=== PATIENT | female | born 1940 | race Caucasian/White ===

== ENCOUNTER → 2019-08-30 08:41 | Outpatient (CLI) | payer MEDICARE, SELFPAY ==
--- NOTE | ~2019-08-30 | CT_ITS ---
EXAMINATION: CT chest abdomen pelvis w con, CT soft tissue neck w con DATE: 08/30/2019 09:23 INDICATION: Restaging grade 2 follicular lymphoma TECHNIQUE: Computed tomography (CT) of the neck, chest, abdomen, and pelvis was performed without int ravenous contrast. The dose-length product was 1171.21 mGy-cm for the CT of the chest, abdomen and pe lvis and 353.40 mGy-cm for the CT of the neck. COMPARISON: 03/24/2019 and 05/14/2018 FINDINGS: NECK CT: 2.6 cm cystic mass in the right thyroid lobe with benign pathology results are fine-needle aspiration on 05/06/2016. Submandibular and parotid glands are normal and symmetric. There are scattered normal -sized lymph nodes in the neck, no lymphadenopathy. No masses identified. The vasculature is patenta nd normal in caliber. Intracranial calcified cerebral atherosclerosis is noted at the carotid siphons . Airway is unremarkable. Orbits, paranasal sinuses and mastoid air cells are normal. Visualized por tions of the brain are normal. Moderate cervical spondylosis with anterior and posterior spinal fusio n at C5-C7. CHEST CT: Unchanged scarring at the bilateral apices. 5 mm nodules in the left upper and lower lobes which are unchanged since 05/14/2018. Pneumatocele in the right lower lobe. Minimal dependent atelectasis in th e bilateral lower lobes. No pneumonia, pulmonary edema or pleural effusion. Heart size is normal. Ath erosclerotic coronary artery calcifications. No pericardial effusion. Calcified left hilar lymph node s consistent with old granulomatous disease. No pathologically enlarged thoracic lymphadenopathy. Mod erate thoracic spondylosis. ABDOMEN/PELVIS CT: Liver, gallbladder, pancreas, bilateral adrenal glands and right kidney are normal. Mild cortical sca rring at the upper pole of the left kidney. A few calcifications consistent with old granulomatous di sease within the normal sized spleen. There is moderate colonic diverticulosis with a sigmoid predomi nance. There is no adjacent inflammatory change to suggest diverticulitis. Normal appendix. No bowel obstruction. The uterus is not identified and has likely been surgically resected. Bladder and bilat eral adnexa are unremarkable. No free intraperitoneal gas or fluid. No pathologically enlarged abdomi nal or pelvic lymphadenopathy. Moderate lumbar spondylosis. Suture anchors bilaterally at the parasym physeal pubis IMPRESSION: 1. No evidence of lymphoma. Reviewed, dictated and finalized at location A. IMPRESSION: 1. No evidence of lymphoma. IMPRESSION: 1. No evidence of lymphoma.
[2019-08-30 09:04] LABS: Estimated Glomerular Filt Rate > 60
== END ==
PROVIDERS: Visit Provider Internal Medicine Medical Oncology
DX: C82.18 Follicular lymphoma grade II, lymph nodes of multiple sites (principal)
CPT/HCPCS: 36415; 70491; 71260; 74177; Q9967

== ENCOUNTER 2019-11-29 08:37 | Outpatient (CLI) | payer MEDICARE, SELFPAY ==
--- NOTE | ~2019-11-29 | CT_ITS ---
EXAMINATION: CT soft tiss nk chst ab pel w EXAM DATE: 11/29/2019 09:35 INDICATION: Follicular lymphoma, multiple sites. TECHNIQUE: Spiral CT of the neck, chest, abdomen and pelvis was performed following intravenous injec tion of 100 mL Omnipaque 350. Axial, coronal and sagittal images of the neck were reviewed. Axial, coronal and sagittal images of the chest were reviewed. Coronal maximum intensity pixel images of ch est reviewed. Axial, coronal and sagittal images of the abdomen and pelvis were reviewed. The dose- length product (DLP) for this examination was 1518.02 mGy-cm. The exposure was tailored according to patient size (auto mA exposure control), and iterative reconstruction (ASIR) was used as additional dose reduction technique. Comparison is made to prior examination from 08/30/2019. FINDINGS: NECK: There is 2.5 cm cystic right thyroid lobe nodule. The submandibular and parotid glands are sym metric. There is no cervical lymphadenopathy. There are no masses identified. The airway is unr emarkable. Parapharyngeal and pre-glottic fat planes are preserved. The opacified vasculature is patent. The orbits are unremarkable. Visualized sinuses and mastoid air cells are well aerated. There is cervical spondylosis. CHEST: Biapical scarring unchanged. No new or suspicious lung opacities. There are no pleural or pe ricardial effusions. Tracheobronchial tree is patent. There is no mediastinal, hilar or axillary lymphadenopathy. There is no pneumothorax. Heart normal in size. There is mild coronary arteria l calcification, arterial sclerosis. There is mild emphysema. No central pulmonary emboli. ABDOMEN PELVIS: The liver, spleen, adrenal glands and pancreas are unremarkable. Gallbladder is unre markable. No biliary obstruction. Portal and splenic veins are patent. Kidneys enhance symmetrical ly. There is no hydronephrosis. The uterus is not identified and has likely been surgically resect ed. The bladder is unremarkable. There is no retroperitoneal or pelvic lymphadenopathy. There is mild scattered arteriosclerotic disease. The appendix is large in caliber but does not appear obstructed and there is no adjacent inflammation . There is moderate scattered colonic diverticulosis. There is no adjacent inflammatory change to mancia ggest diverticulitis. There are left inguinal surgical clips. The stomach and small bowel are unrem arkable. There is expected amount of colonic stool. No free intraperitoneal gas. There are no os teoblastic or osteolytic lesions identified. IMPRESSION: 1. No neck, chest, abdomen or pelvis lymphadenopathy. 2. Cystic right thyroid lobe nodule. 3. Colonic diverticulosis. 4. Mild emphysema. Reviewed, dictated and finalized at location B.
[2019-11-29 09:24] LABS: Estimated Glomerular Filt Rate > 60
== END 2019-11-29 08:38 | disposition home or self-care (01) ==
PROVIDERS: PCP Internal Medicine; Visit Provider Internal Medicine Medical Oncology
DX: C82.18 Follicular lymphoma grade II, lymph nodes of multiple sites (principal); E04.1 Nontoxic single thyroid nodule; K57.90 Diverticulosis of intestine, part unspecified, without perforation or abscess without bleeding; J43.9 Emphysema, unspecified
CPT/HCPCS: 36415; 70491; 71260; 74177; Q9967

== ENCOUNTER 2020-04-04 07:16 | Outpatient (CLI) | payer MEDICARE, SELFPAY ==
--- NOTE | ~2020-04-04 | CT_ITS ---
EXAMINATION: CT soft tiss nk chst ab pel w EXAM DATE: 04/04/2020 08:17 INDICATION: Follicular Lymphoma . TECHNIQUE: Spiral CT of the neck, chest, abdomen and pelvis was performed following intravenous injec tion of 100 mL Omnipaque 350. Axial, coronal and sagittal images of the neck were reviewed. Axial, coronal and sagittal images of the chest were reviewed. Coronal maximum intensity pixel images of ch est reviewed. Axial, coronal and sagittal images of the abdomen and pelvis were reviewed. The dose- length product (DLP) for this examination was 1580.20 mGy-cm. The exposure was tailored according to patient size (auto mA exposure control), and iterative reconstruction (ASIR) was used as additional dose reduction technique. Comparison is made to prior examination from 11/29/2019. FINDINGS: NECK: Cystic right thyroid lesion measuring 2.3 cm unchanged. The submandibular and parotid glands a re symmetric. There is no cervical lymphadenopathy. There are no masses identified. The airway is unremarkable. Parapharyngeal and pre-glottic fat planes are preserved. The opacified vasculatu re is patent. The orbits are unremarkable. Visualized sinuses and mastoid air cells are well aera rizwan. There is cervical spondylosis. CHEST: There is biapical scarring. Mild bronchiectasis and bronchiectasis. There are no pleural or pericardial effusions. Tracheobronchial tree is patent. There is no mediastinal, hilar or axillar y lymphadenopathy. There is no pneumothorax. Heart normal in size. There is mild coronary arter ial calcification, arterial sclerosis. ABDOMEN PELVIS: The liver, spleen, adrenal glands and pancreas are unremarkable. Gallbladder is unre markable. No biliary obstruction. Portal and splenic veins are patent. Kidneys enhance symmetrical ly. There is no hydronephrosis. Small region left renal cortical scarring. The uterus is not identi fied and has likely been surgically resected. The bladder is unremarkable. There is no retroperiton eal or pelvic lymphadenopathy. There is mild scattered arteriosclerotic disease. Left inguinal les ia repair. The appendix is normal. There is small sliding gastroesophageal hiatal hernia. There is moderate am ount of colonic stool. There is moderate sigmoid predominant colonic diverticulosis. There is no adj acent inflammatory change to suggest diverticulitis. No free intraperitoneal gas. There are no ost eoblastic or osteolytic lesions identified. IMPRESSION: 1. Stable exam. No lymphadenopathy. Normal spleen size. 2. Colonic diverticulosis. 3. Other chronic findings. Reviewed, dictated and finalized at location B. 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
[2020-04-04 07:47] LABS: Estimated Glomerular Filt Rate > 60
== END 2020-04-04 07:17 | disposition home or self-care (01) ==
PROVIDERS: PCP Internal Medicine; Visit Provider Internal Medicine Medical Oncology
DX: C82.18 Follicular lymphoma grade II, lymph nodes of multiple sites (principal); K57.30 Diverticulosis of large intestine without perforation or abscess without bleeding
CPT/HCPCS: 70491; 71260; 74177; Q9967

== ENCOUNTER 2020-10-03 07:52 | Outpatient (CLI) | payer MEDICARE, SELFPAY ==
--- NOTE | ~2020-10-03 | CT_ITS ---
EXAMINATION: CT soft tiss nk chst ab pel w EXAM DATE: 10/03/2020 08:46 INDICATION: Follicular lymphoma grade II of lymph nodes of. Restaging TECHNIQUE: Spiral CT of the neck, chest, abdomen and pelvis was performed following intravenous injec tion of 100 mL Omnipaque 350. Axial, coronal and sagittal images of the neck were reviewed. Axial, coronal and sagittal images of the chest were reviewed. Coronal maximum intensity pixel images of ch est reviewed. Axial, coronal and sagittal images of the abdomen and pelvis were reviewed. The dose- length product (DLP) for this examination was 1525.86 mGy-cm. The exposure was tailored according to patient size (auto mA exposure control), and iterative reconstruction (ASIR) was used as additional dose reduction technique. Comparison is made to prior examination from 04/04/2020. FINDINGS: NECK: Cystic right thyroid lesion measuring 2.5 cm not significantly changed. The submandibular and parotid glands are unremarkable. There is no cervical lymphadenopathy. There are no masses identif ied. The airway is unremarkable. Parapharyngeal and pre-glottic fat planes are preserved. The opacified vasculature is patent. The orbits are unremarkable. Visualized sinuses and mastoid air cells are well aerated. There is cervical spondylosis. CHEST: There is biapical scarring. Mild bronchiectasis and bronchiectasis. There are no pleural or pericardial effusions. Tracheobronchial tree is patent. There is no mediastinal, hilar or axillar y lymphadenopathy. There is no pneumothorax. Heart normal in size. There is mild coronary arter ial calcification, arterial sclerosis. ABDOMEN PELVIS: Development of mass between the right renal hilum and the IVC measuring 3.8 cm, most likely lymphadenopathy enlarged with recurrent lymphoma. No other pathologically enlarged lymph nodes . Small amount of free pelvic fluid. The liver, spleen, adrenal glands and pancreas are unremarkable. Gallbladder is unremarkable. No biliary obstruction. Portal and splenic veins are patent. Kidney s enhance symmetrically. There is no hydronephrosis. Small region left renal cortical scarring. Punc lay left nephrolithiasis. The uterus is not identified and has likely been surgically resected. The bladder is unremarkable. There is mild scattered arteriosclerotic disease. Left inguinal surgical clips. The appendix is normal. There is small sliding gastroesophageal hiatal hernia. There is moderate am ount of colonic stool. There is moderate sigmoid predominant colonic diverticulosis. There is no adj acent inflammatory change to suggest diverticulitis. No free intraperitoneal gas. There are no ost eoblastic or osteolytic lesions identified. IMPRESSION: 1. Interval development of right-sided retrocaval mass most likely recurrent lymphoma. 2. Colonic diverticulosis. 3. Other chronic findings. Reviewed, dictated and finalized at location B. IMPRESSION: 1. Interval development of right-sided retrocaval mass most likely recurrent l ymphoma. 2. Colonic diverticulosis. 3. Other chronic findings.
[2020-10-03 16:28] LABS: Estimated Glomerular Filt Rate > 60
== END 2020-10-03 07:53 | disposition home or self-care (01) ==
PROVIDERS: PCP Internal Medicine; Visit Provider Internal Medicine Medical Oncology
DX: C82.18 Follicular lymphoma grade II, lymph nodes of multiple sites (principal); K57.30 Diverticulosis of large intestine without perforation or abscess without bleeding
CPT/HCPCS: 70491; 71260; 74177; Q9967

== ENCOUNTER 2020-10-05 10:41 | Outpatient (CLI) | payer MEDICARE, SELFPAY ==
--- NOTE | ~2020-10-05 | PE_ITS ---
EXAMINATION: PET skull to mid thigh DATE: 10/05/2020 12:45 INDICATION: Lymph node enlargement. Abnormal CT . TECHNIQUE: Blood glucose level was 87 mg/dL. 9.156 mCi of 18-fluorodeoxyglucose (18-FDG) was administ ered i.v. Low dose computed tomography (CT) images were acquired from the base of the brain to the pr oximal thighs for attenuation correction and anatomic localization. Positron emission tomography (PET ) images were acquired in the same distribution beginning 67 minutes after injection. Images includin g fused PET/CT images were reconstructed in axial, coronal, and sagittal planes. Automated exposure c ontrol technique was employed. The dose-length product was 622.50mGy-cm. COMPARISON: CT of the neck, chest, abdomen and pelvis dated 10/03/2020 FINDINGS: Head/neck: There is symmetric increased activity in the oral cavity, palatine tonsils, parotid glands, laryngeal muscles and ocular muscles without CT correlate, likely physiologic. There is asymmetric enlargement and markedly asymmetric increased FDG uptake at the right submandibular gland relative to the left w ith maximal SUV of 6.9. 2.5 similar low-attenuation cystic lesion at the right thyroid lobe. No patho logically enlarged cervical lymphadenopathy or other suspicious foci of increased FDG uptake in the v isualized head or neck. Chest: Mild biapical pleural-parenchymal scarring. No suspicious pulmonary nodules, pneumonia, pulmonary adam ma or pleural effusion. Heart size is normal. Atherosclerotic coronary artery calcific lesion. No per icardial effusion. Thoracic aorta is normal in caliber. No pathologically enlarged or FDG avid thorac ic lymphadenopathy. Abdomen/pelvis/proximal thighs: Physiologic renal accumulation and excretion of FDG activity in the kidneys, bladder and along portio ns of ureters. 2 mm nonobstructing left renal stone. Normal degree and heterogenous pattern of increa sed uptake throughout the liver without radiologic correlate or dominant FDG avid lesion. The gallbla dder, pancreas, spleen and bilateral adrenal glands are normal. Marked FDG uptake with maximal SUV of 13.7 associated with the 3.8 cm mass situated between the right kidney, the inferior vena cava and m ore anterior right renal vein and more posterior right renal artery. No other pathologically enlarged or FDG avid abdominal, pelvic or inguinal lymphadenopathy. There is moderate colonic diverticulosis with a sigmoid predominance. There is no adjacent inflammatory change to suggest diverticulitis. Nor mal appendix. Mild uptake scattered throughout the bowels without radiologic correlate, also likely physiologic. Small amount of ascites in the cul-de-sac. Several surgical clips in the left inguinal r egion. Musculoskeletal: Anterior fusion at C5-C7. Mild thoracic and moderate cervical and lower lumbar spondylosis. No suspic ious lytic, blastic or FDG avid bone lesions. IMPRESSION: 1. Marked increased FDG uptake associated with a 3.8 cm right paracaval mass suspicious for recurrent lymphoma. 2. Nonspecific asymmetric enlargement and increased FDG uptake at the right submandibular gland and c ompared with the left. 3. Moderate diverticulosis. 4. 2 mm nonobstructing left renal stone. Reviewed, dictated and finalized at location A. IMPRESSION: 1. Marked increased FDG uptake associated with a 3.8 cm right paracaval mass mancia spicious for recurrent lymphoma. 2. Nonspecific asymmetric enlargement and increased FDG uptake at the right sub mandibular gland and compared with the left. 3. Moderate diverticulosis. 4. 2 mm nonobstructing left renal stone.
[2020-10-05 11:13] LABS: Glucose Point of Care 87 (65-105)
== END 2020-10-05 10:42 | disposition home or self-care (01) ==
PROVIDERS: PCP Internal Medicine; Visit Provider Internal Medicine Medical Oncology
DX: R59.9 Enlarged lymph nodes, unspecified (principal); C85.93 Non-Hodgkin lymphoma, unspecified, intra-abdominal lymph nodes; R93.5 Abnormal findings on diagnostic imaging of other abdominal regions, including retroperitoneum; N20.0 Calculus of kidney; K57.30 Diverticulosis of large intestine without perforation or abscess without bleeding
CPT/HCPCS: 78815; 82948; A9552

== ENCOUNTER 2021-02-07 12:13 | Outpatient (CLI) | payer MEDICARE, SELFPAY ==
--- NOTE | ~2021-02-07 | CT_ITS ---
EXAMINATION: CT soft tiss nk chst ab pel w EXAM DATE: 02/07/2021 13:17 INDICATION: Grade 2 follicular lymphoma multiple sites. TECHNIQUE: Spiral CT of the neck, chest, abdomen and pelvis was performed following intravenous injec tion of 100 mL Omnipaque 350. Axial, coronal and sagittal images of the neck were reviewed. Axial, coronal and sagittal images of the chest were reviewed. Coronal maximum intensity pixel images of ch est reviewed. Axial, coronal and sagittal images of the abdomen and pelvis were reviewed. The dose- length product (DLP) for this examination was 1505.37 mGy-cm. The exposure was tailored according to patient size (auto mA exposure control), and iterative reconstruction (ASIR) was used as additional dose reduction technique. Comparison is made to prior examination from 10/03/2020. FINDINGS: NECK: Correlating with prior PET/CT report from 10/05, there was increased activity in the submandibula r gland which was larger than contralateral side. This appears symmetric today. Could be that there w as lipomatous infiltration within this that has responded to treatment. Cystic right thyroid lesion measuring 2.5 cm not significantly changed. Parotid glands are unremarkable. There is no cervical l ymphadenopathy. There are no masses identified. The airway is unremarkable. Parapharyngeal and pre-glottic fat planes are preserved. The opacified vasculature is patent. The orbits are unremar kable. Visualized sinuses and mastoid air cells are well aerated. There is cervical spondylosis. CHEST: There is biapical scarring. Mild bronchiectasis and bronchiectasis. There are no pleural or pericardial effusions. Tracheobronchial tree is patent. There is no mediastinal, hilar or axillar y lymphadenopathy. There is no pneumothorax. Heart normal in size. There is mild coronary arter ial calcification, arterial sclerosis. ABDOMEN PELVIS: Previously seen mass between the right pericaval mass is no longer visible, has respo nded to treatment. Decrease in quantity of small pelvic fluid. The liver, spleen, adrenal glands and pancreas are unremarkable. Gallbladder is unremarkable. No biliary obstruction. Portal and splenic veins are patent. Kidneys enhance symmetrically. There is no hydronephrosis. Small region left merly al cortical scarring. Punctate left nephrolithiasis. The uterus is not identified and has likely been surgically resected. The bladder is unremarkable. There is mild scattered arteriosclerotic disease . Left inguinal surgical clips. The appendix is normal. There is small sliding gastroesophageal hiatal hernia. There is moderate am ount of colonic stool. There is moderate sigmoid predominant colonic diverticulosis. There is no adj acent inflammatory change to suggest diverticulitis. No free intraperitoneal gas. There are no ost eoblastic or osteolytic lesions identified. IMPRESSION: 1. Resolution of pericaval mass, likely lymphoma responding to treatment. 2. Unremarkable submandibular glands. 3. Other chronic findings. Reviewed, dictated and finalized at location A.
[2021-02-07 12:48] LABS: Estimated Glomerular Filt Rate > 60
== END 2021-02-07 12:14 | disposition home or self-care (01) ==
PROVIDERS: PCP Internal Medicine; Visit Provider Internal Medicine Medical Oncology
DX: C82.18 Follicular lymphoma grade II, lymph nodes of multiple sites (principal)
CPT/HCPCS: 70491; 71260; 74177; Q9967

== ENCOUNTER 2021-05-30 07:11 | Outpatient (CLI) | payer MEDICARE, SELFPAY ==
--- NOTE | ~2021-05-30 | CT_ITS ---
EXAMINATION: CT soft tiss nk chst ab pel w EXAM DATE: 05/30/2021 07:54 INDICATION: Monitor treatment of response to non-Hodgkin's lymphoma. Pericaval mass. TECHNIQUE: Spiral CT of the neck, chest, abdomen and pelvis was performed following intravenous injec tion of 100 mL Omnipaque 350. Axial, coronal and sagittal images of the neck were reviewed. Axial, coronal and sagittal images of the chest were reviewed. Coronal maximum intensity pixel images of ch est reviewed. Axial, coronal and sagittal images of the abdomen and pelvis were reviewed. The dose- length product (DLP) for this examination was 1409.17 mGy-cm. The exposure was tailored according to patient size (auto mA exposure control), and iterative reconstruction (ASIR) was used as additional dose reduction technique. Comparison is made to prior examination from 02/07/2021. FINDINGS: NECK: There is 2.5 cm right thyroid lobe cyst unchanged. The submandibular and parotid glands are sy mmetric. There is no cervical lymphadenopathy. There are no masses identified. The airway is un remarkable. Parapharyngeal and pre-glottic fat planes are preserved. The opacified vasculature is patent. The orbits are unremarkable. Visualized sinuses and mastoid air cells are well aerated. There is cervical spondylosis. CHEST: There is 4 mm left lower lobe nodule, probably was present on prior study but obscured by flip e dependent atelectasis on that exam. This is most likely granuloma. Mild emphysema. Biapical scarrin g unchanged. There are no pleural or pericardial effusions. Tracheobronchial tree is patent. The re is no mediastinal, hilar or axillary lymphadenopathy. There is no pneumothorax. Heart normal i n size. There is mild coronary arterial calcification, arterial sclerosis. No central pulmonary emb lashaun. ABDOMEN PELVIS: The liver, spleen, adrenal glands and pancreas are unremarkable. Gallbladder is unre markable. No biliary obstruction. Portal and splenic veins are patent. Kidneys enhance symmetrical ly. There is no hydronephrosis. The uterus is not identified and has likely been surgically resect ed. Mild enhancing bladder wall mucosa and mild bladder wall thickening. Mild enhancement of the lef t renal pelvic and ureter urothelium. Possible cystitis and upper urinary tract infection. These find ings were not present on prior study. There is no retroperitoneal or pelvic lymphadenopathy. There is mild scattered arteriosclerotic disease. The appendix is normal. There is moderate sigmoid predominant colonic diverticulosis. There is no ad jacent inflammatory change to suggest diverticulitis. The stomach and small bowel are unremarkable. There is expected amount of colonic stool. No free intraperitoneal gas. There are no osteoblastic or osteolytic lesions identified. Left inguinal surgical clips. IMPRESSION: 1. No neck, chest abdomen or pelvis lymphadenopathy. 2. Development of mild enhancement bladder and left ureter, renal pelvic urothelium. Could indicate cystitis, upper UTI in the appropriate clinical setting. 3. Sigmoid diverticulosis. Reviewed, dictated and finalized at location A. ENT ENGINEER IMPRESSION: 1. No neck, chest abdomen or pelvis lymphadenopathy. 2. Development of mild enhancement bladder and left ureter, renal pelvic uroth elium. Could indicate cystitis, upper UTI in the appropriate clinical setting. 3. Sigmoid diverticulosis.
[2021-05-30 07:43] LABS: Estimated Glomerular Filt Rate > 60
== END 2021-05-30 07:12 | disposition home or self-care (01) ==
LOC: ANHIMG 07:12
PROVIDERS: PCP Internal Medicine; Visit Provider Internal Medicine Medical Oncology
DX: Z51.81 Encounter for therapeutic drug level monitoring (principal); Z79.899 Other long term (current) drug therapy; C85.90 Non-Hodgkin lymphoma, unspecified, unspecified site; K57.30 Diverticulosis of large intestine without perforation or abscess without bleeding
CPT/HCPCS: 70491; 71260; 74177; Q9967

== ENCOUNTER 2021-11-21 08:44 | Outpatient (CLI) | payer MEDICARE, SELFPAY ==
--- NOTE | ~2021-11-21 | CT_ITS ---
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 TECHNIQUE: Computed tomography (CT) of the neck, chest, abdomen, and pelvis was performed with 100 mL Omnipaque 300 intravenous contrast. Automated exposure control and iterative reconstruction techniqu e were employed. The dose-length product was 1278.66 mGy-cm. COMPARISON: CT 05/30/2021 FINDINGS: NECK CT: There is a 2.5 cm cyst in right thyroid lobe, likely benign. There are no pathologically enlarged lym ph nodes. There is severe cervical spondylosis. CHEST CT: There is mild scarring at the lung apices. There is mild dependent atelectasis bilaterally. There is a pneumatocele in right lower lobe. There is a 5 mm nodule in left lower lobe without change, likely benign. Again seen is an 8 mm groundglass opacity in left upper lobe, likely benign. There is mild br onchiectasis in the inferior lungs. There is a 3 mm nodule in right middle lobe without change, likel y benign. No pleural effusion. The heart size is normal. There are coronary artery calcifications. No pericardial effusion. Calcified left hilar and mediastinal lymph nodes are consistent with old granu lomatous disease. There is severe mid thoracic spondylosis. ABDOMEN/PELVIS CT: The liver is normal. The spleen is normal in size. Calcifications in the spleen are consistent with o ld granulomatous disease. The gallbladder, pancreas and adrenal glands are normal. There is cortical thinning of the kidneys. There is diverticulosis of the colon without evidence of diverticulitis. The re are no dilated loops of bowel. The appendix is normal. There are no pathologically enlarged lymph nodes. There is no free intraperitoneal fluid. Pelvic floor dysfunction is noted. There are suture an chors in the parasymphyseal pubis on either side. There is severe lower lumbar spondylosis. IMPRESSION: 1. No evidence of lymphoma. Reviewed, dictated and finalized at location A. IMPRESSION: 1. No evidence of lymphoma.
[2021-11-21 09:13] LABS: Estimated Glomerular Filt Rate > 60
== END 2021-11-21 08:45 | disposition home or self-care (01) ==
LOC: ANHIMG 08:45
PROVIDERS: PCP Internal Medicine; Visit Provider Internal Medicine Medical Oncology
DX: C82.18 Follicular lymphoma grade II, lymph nodes of multiple sites (principal)
CPT/HCPCS: 70491; 71260; 74177; Q9967

== ENCOUNTER 2022-03-11 07:23 | Outpatient (CLI) | payer MEDICARE, SELFPAY ==
--- NOTE | ~2022-03-11 | CT_ITS ---
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 TECHNIQUE: Computed tomography (CT) of the neck, chest, abdomen, and pelvis was performed with 100 mL Omnipaque 350 intravenous contrast. Automated exposure control and iterative reconstruction techniqu e were employed. The dose-length product was 1245.49 mGy-cm. COMPARISON: CT 11/21/2021, 05/28/2017 FINDINGS: NECK CT: There are no pathologically enlarged lymph nodes. There is a 2.6 cm nodule in right thyroid lobe, sta ble from 05/28/2017, likely benign. There is 0% stenosis of the proximal internal carotid arteries re lative to normal and osteopenia artery lumen diameters. There is severe cervical spondylosis. There a re changes of anterior and posterior fusion from C5 to C7. CHEST CT: There is mild scarring at the lung apices. There is mild atelectasis bilaterally. There is a pneumato fanny in right lower lobe. There is mild bronchiectasis in the inferior lungs. There is a chronic 4 mm nodule in left lower lobe, likely benign. Again seen is an 8 mm groundglass opacity in left upper lo be, likely benign. A calcified left lung nodule and calcified left hilar and mediastinal lymph nodes are consistent with old granulomatous disease. No pleural effusion. The heart size is normal. No denys cardial effusion. There is severe mid thoracic spondylosis. ABDOMEN/PELVIS CT: The liver and gallbladder are normal. Calcifications in the spleen are consistent with old granulomat ous disease. There is a 4 mm cyst in the spleen. The pancreas and adrenal glands are normal. There is cortical thinning of the kidneys. There is a 4 mm cyst in right kidney. There is diverticulosis of t he colon without evidence of diverticulitis. There are no dilated loops of bowel. The appendix is nor mal. There are no pathologically enlarged lymph nodes. There is no free intraperitoneal fluid. There are suture anchors in the parasymphyseal pubis bilaterally. There is severe lower lumbar spondylosis. IMPRESSION: 1. No evidence of lymphoma. Reviewed, dictated and finalized at location A. IMPRESSION: 1. No evidence of lymphoma.
[2022-03-11 07:55] LABS: Estimated Glomerular Filt Rate > 60
== END 2022-03-11 07:24 | disposition home or self-care (01) ==
PROVIDERS: PCP Internal Medicine; Visit Provider Internal Medicine Medical Oncology
DX: C82.18 Follicular lymphoma grade II, lymph nodes of multiple sites (principal)
CPT/HCPCS: 70491; 71260; 74177; Q9967

== ENCOUNTER 2022-04-11 08:49 | Outpatient (CLI) | payer MEDICARE, SELFPAY ==
--- NOTE | 2022-04-11 14:06 | WPDPFTINT ---
PFT Procedure Performed PFT Procedure Performed Plethysmography (Lung Vol) Diffusing Cap (DLCO) Flow Vol Loop Spirometry w/o Bronchodil PFT Interpretation Lung volumes were measured with the body plethysmography method. Lung volumes are unremarkable. Spirometry showed normal expiratory flow rates and a normal FEV1 to FVC ratio of 83%. No post bronchodilator study carried out. Lung diffusion capacity is borderline normal at 70% predicted. The flow volume loop is unremarkable. Impression: Spirometry, lung volumes, and lung diffusion capacity all within the normal range.
== END 2022-04-11 08:50 | disposition home or self-care (01) ==
LOC: ANHPFT 08:51
PROVIDERS: PCP Internal Medicine; Visit Provider Internal Medicine
DX: R06.00 Dyspnea, unspecified (principal)
CPT/HCPCS: 94375; 94726; 94729

== ENCOUNTER → 2022-06-12 11:46 | Outpatient (CLI) | payer MEDICARE, SELFPAY ==
--- NOTE | ~2022-06-12 | DEXA_ITS ---
Bone Density Report Name: JASON KRAUSE Age: 82 Sex: Female Ethnicity: White Date of : 1940 Indication: osteopenia; parental hip fracture; height loss; prior fracture; cancer; hysterectomy; postmenopausal Referring Provider: SALLY, GEMINI Turner Study: Bone densitometry was performed. Exam Date: June 12, 2022 Accession number: [id number] Bone Density: Region BMD T-score Z-score Classification AP Spine (L1-L4) 0.824 -2.0 0.7 Osteopenia Femoral Neck (Left) 0.633 -1.9 0.4 Osteopenia Total Hip (Left) 0.810 -1.1 1.0 Osteopenia Femoral Neck (Right) 0.644 -1.8 0.5 Osteopenia Total Hip (Right) 0.825 -1.0 1.1 Normal Total Hip Mean 0.818 -1.1 1.1 Osteopenia World Health Organization criteria for BMD impression classify patients as: Normal (T-score at or above -1.0), Osteopenia (T-score between -1.0 and -2.5), or Osteoporosis (T-score at or below -2.5). 10-year Fracture Risk(1): Major Osteoporotic Fracture 37% Hip Fracture 23% Reported Risk Factors: [place] (), Neck BMD=0.633, BMI=26.3, previous fracture, parental fracture (1) FRAX(R) Version 3.08. Fracture probability calculated for an untreated patient. Fracture probability may be lower if the patient has received treatment. Previous Exams: Region Exam Age BMD T-score BMD Change BMD Change Date g/cm2 vs Baseline vs Previous AP Spine(L1-L4) 06/12/2022 82 0.824 -2.0 -0.002 -0.002 09/30/2017 77 0.825 -2.0 Total Hip(Left) 06/12/2022 82 0.810 -1.1 -0.085* -0.085* 09/30/2017 77 0.895 -0.4 Total Hip(Right) 06/12/2022 82 0.825 -1.0 -0.035* -0.035* 09/30/2017 77 0.860 -0.7 *Denotes significance at 95% confidence level, LSC for AP Spine = 0.022 g/cm2, LSC for Total Hip = 0.027 g/cm2 Clinical Information Provided by Patient: Has had a low trauma fracture Parent has had a hip fracture Has used the following medications: Vitamin D, Calcium Has the following medical conditions: Cancer, Hysterectomy Patient maximum height was 62 Menopause Age: 50 Does not regularly consume dairy products Drinks caffeinated beverages Onset of menses at age 14 Number of children 2 Impression: The patient has low bone mass, based on the Total Spine T-score. The patient has an estimated ten-year risk of hip fracture of 23% and an estimated ten-year risk of major fracture of 37%, based on the WHO FRAX algorithm. The patient has risk f
== END ==
PROVIDERS: PCP Internal Medicine; Visit Provider Internal Medicine
DX: Z12.31 Encounter for screening mammogram for malignant neoplasm of breast (principal); Z78.0 Asymptomatic menopausal state; M85.88 Other specified disorders of bone density and structure, other site; M85.852 Other specified disorders of bone density and structure, left thigh; M85.851 Other specified disorders of bone density and structure, right thigh
CPT/HCPCS: 77080

== ENCOUNTER → 2022-07-02 12:09 | Outpatient (CLI) | payer MEDICARE, SELFPAY ==
--- NOTE | ~2022-07-02 | MM_ITS ---
EXAMINATION: MM screening erick BI w eliana HISTORY: Screening TECHNIQUE: Craniocaudal and mediolateral oblique 3-D tomosynthesis images were obtained and synthetic 2-D images were generated. CAD analysis was submitted and interpreted. COMPARISON: Comparison to multiple prior studies sequentially, with oldest reviewed study dated 05/04. BREAST PARENCHYMAL COMPOSITION: FINDINGS: Diminished size of benign sinus subareolar mass of the right breast. There is no evidence o f suspicious mass, calcification, or architectural distortion to suggest malignancy in either breast. There has been no suspicious interval change. IMPRESSION: 1. No mammographic evidence of malignancy. 2. Recommend routine screening mammography in one year. BI-RADS Category 2: Benign finding(s). Reviewed, dictated and finalized at location A. L CODER
== END ==
PROVIDERS: PCP Internal Medicine; Visit Provider Internal Medicine
DX: Z12.31 Encounter for screening mammogram for malignant neoplasm of breast (principal)
CPT/HCPCS: 77063; 77067

== ENCOUNTER 2022-08-30 09:30 | Outpatient (CLI) | payer MEDICARE, SELFPAY ==
--- NOTE | ~2022-08-30 | CT_ITS ---
Clinical Indication: Lymphoma restaging CT Scan of the Neck, Chest, Abdomen, and Pelvis with Contrast: Technique: Contiguous sections were acquired throughout the neck, chest, abdomen, and pelvis after in travenous administration of 100 cc of Omnipaque 350. Dose reduction technique was used on this scan by utilizing automated exposure control and iterative reconstruction technique. The dose-length produ ct (DLP) was 1267.86 mGy-cm. COMPARISON: 03/11/2022 Findings: No lymphadenopathy seen in the. No abnormal soft tissue or fluid collection seen in the nec k. Vascular structures in the neck enhance normally. Parapharyngeal fat preserved bilaterally. Parotid and submandibular glands are unremarkable. Paranasa l sinuses are clear. No orbital abnormality evident. Stable cystic nodule in the right thyroid lobe. There is no evidence of any significant mediastinal, hilar or axillary lymphadenopathy. The mediastin al soft tissues and vascular structures appear normal. There is no evidence of pleural or pericardial effusion. Stable biapical scarring. Stable semisolid nodule in the left upper lobe (axial image 49). Stable 5 m m left lower lobe pulmonary nodule (axial image 107). The liver, spleen, pancreas, gallbladder, adrenals and kidneys are within normal limits. There are at herosclerotic calcifications of the aorta. No lymphadenopathy. No bowel obstruction or bowel wall thickening. There is no evidence to suggest acute appendicitis. Urinary bladder is unremarkable. No pelvic mass evident. No ascites. Impression: No evidence for active malignancy or metastatic disease. No pathologic lymphadenopathy seen. Stable pulmonary nodules, as noted above. Reviewed, dictated and finalized at location . Impression: No evidence for active malignancy or metastatic disease. No pathologic lymphade nopathy seen. Stable pulmonary nodules, as noted above.
[2022-08-30 09:53] LABS: Estimated Glomerular Filt Rate > 60
== END 2022-08-30 09:31 | disposition home or self-care (01) ==
PROVIDERS: PCP Internal Medicine; Visit Provider Internal Medicine Medical Oncology
DX: C82.18 Follicular lymphoma grade II, lymph nodes of multiple sites (principal); R91.8 Other nonspecific abnormal finding of lung field
CPT/HCPCS: 70491; 71260; 74177; Q9967

== ENCOUNTER 2022-09-06 10:49 | Outpatient (CLI) | payer MEDICARE, SELFPAY ==
--- NOTE | ~2022-09-06 | US_ITS ---
EXAMINATION: US thyroid DATE: 09/06/2022 11:18 INDICATION: Thyroid nodule. TECHNIQUE: Multiple ultrasound images of the thyroid were obtained. COMPARISON: Ultrasound 11/27/2018 FINDINGS: The right thyroid lobe measures 3.8 x 2.6 x 2.6 cm. The left thyroid lobe measures 1.9 x 0.9 x 1.1 c m. In the right thyroid lobe, there is a 2.3 cm mixed cystic and solid, hypoechoic, wider than tall nodule with ill-defined margin without echogenic foci (TI-RADS TR3) with overall decreased size, but worsened solid component when compared to 11/19/2018. IMPRESSION: 1. Right thyroid nodule. Thyroid ultrasound is recommended in one year. Reviewed, dictated and finalized at location A.
== END 2022-09-06 10:50 | disposition home or self-care (01) ==
LOC: ANHIMG 10:56
PROVIDERS: PCP Internal Medicine; Visit Provider Nurse Practitioner Family
DX: E04.1 Nontoxic single thyroid nodule (principal)
CPT/HCPCS: 76536

== ENCOUNTER 2022-10-21 11:25 | Day surgery (SDC) | payer MEDICARE, SELFPAY ==
[2022-10-07 14:43] VITALS: BMI 26.3
--- NOTE | 2022-10-18 14:17 | WPDANESEPPF ---
Anes - Initial Pre Proc Eval Procedure: Operation Date: 10/21/22 13:30 Proposed Procedures p Esophagogastroduodenoscopy - Hector Juarez MD Date/Time: 10/18/22 14:17 Surgeon: Hector Juarez MD Pre Op Diagnosis: Dysphagia and Globus Sensation Patient Data Age: 82 Gender: F Height: 1.55 m Weight: 63.2 kg Allergies Allergy/AdvReac Type Severity Reaction Status Date / Time Sulfa (Sulfonamide Allergy Mild Rash Verified 10/21/22 12:16 Antibiotics) codeine AdvReac Severe NAUSEA AND Verified 10/21/22 12:16 VOMITING Home Medications Medication Instructions Recorded Confirmed Type aspirin 81 mg tablet,delayed 81 mg PO DAILY 09/19/22 10/21/22 History release (Adult Low Dose Aspirin) calcium carbonate 600 mg calcium 600 mg PO DAILY 09/19/22 10/21/22 History (1,500 mg) tablet (Calcium) Imodium 4 mg PO PRN Diarrhea 10/07/22 History Patient hx anesthesia problems: none Family hx anesthesia problems: none Results Review: All pre-operative results and documents have been reviewed as part of the pre-operative evaluation. [facility] Past Medical History Medical History Abnormal breast biopsy Basal cell carcinoma of foot Breast mass Dysphagia Globus sensation Hodgkins lymphoma Infertility, tubal origin Kidney stone Surgical History Surgical History H/O lymph node biopsy H/O neck surgery History of hysterectomy Hx of fusion of cervical spine Family History Family History (Updated 01/27/14 @ 07:13 by DOCTOR UNKNOWN) Sibling Hypertension Family history of elevated blood lipids Family history of malignant neoplasm Family history of kidney disease Family history of malignant neoplasm of ovary Mother Family history of heart disease in male family member before age 55 Social History Social History Smoking status: Never smoker Alcohol intake: never Substance use: never Substance use type: does not use Spiritual care concerns: No Anes - Eval Final PreProcedure Day of Procedure 10/18/22 14:17 Patient weight: overweight Heart: regular rate and rhythm Lungs: clear to auscultation Airway: Mallampati scale class II Neurological: alert and oriented Last oral intake: >/= 8 hours ASA classification: III Emergent: no Anesthetic plan: proceed Anesthesia type and monitoring: general GIVS and standard monitoring Results Review: All pre-operative results and documents have been reviewed as part of the pre-operative evaluation. Informed Consent: The patient's anesthetic plan and its attendant risks and benefits were discussed with the patient/family/POA. Questions were solicited and answers provided to the satisfaction of the patient/family/POA.
--- NOTE | 2022-10-18 15:58 | PM.HPGS ---
History of Present Illness History of Present Illness Consent: Risks, benefits, and alternatives have been discussed and questions answered. Patient agrees to proceed with procedure. Chief complaint: Dysphagia and Globus Sensation Narrative: Evy Pierre is a 82 year old female was referred to us for symptoms of dysphagia. She actually has a globus sensation for the past year as if something is pressing on her esophagus. She may have difficulty at times swallowing pills on liquid. occasionally she will feel something going down the wrong throat. She has had anterior cervical spine surgery and also right-sided lymph node cervical biopsy she has had no sensation of food getting stuck in her esophagus during a meal. Weight is stable Review of Systems Review of Systems: All systems reviewed & are unremarkable except as noted in HPI and below PMFSH Past Medical History Medical History Abnormal breast biopsy Basal cell carcinoma of foot Breast mass Dysphagia Globus sensation Hodgkins lymphoma Infertility, tubal origin Kidney stone Surgical History Surgical History H/O lymph node biopsy H/O neck surgery History of hysterectomy Hx of fusion of cervical spine Family History Family History (Updated 01/27/14 @ 07:13 by DOCTOR UNKNOWN) Sibling Hypertension Family history of elevated blood lipids Family history of malignant neoplasm Family history of kidney disease Family history of malignant neoplasm of ovary Mother Family history of heart disease in male family member before age 55 Social History Social History Smoking status: Never smoker Alcohol intake: never Substance use: never Substance use type: does not use Spiritual care concerns: No Meds Home Medications and Allergies Home Medications Medication Instructions Recorded Confirmed Type aspirin 81 mg tablet,delayed 81 mg PO DAILY 09/19/22 10/21/22 History release (Adult Low Dose Aspirin) calcium carbonate 600 mg calcium 600 mg PO DAILY 09/19/22 10/21/22 History (1,500 mg) tablet (Calcium) Imodium 4 mg PO PRN Diarrhea 10/07/22 History Allergies Allergy/AdvReac Type Severity Reaction Status Date / Time Sulfa (Sulfonamide Allergy Mild Rash Verified 10/21/22 12:16 Antibiotics) codeine AdvReac Severe NAUSEA AND Verified 10/21/22 12:16 VOMITING Exam Const: General: alert Orientation/consciousness: patient oriented x3 Resp: Auscultation: clear to auscultation bilaterally Cardio: Rhythm: regular rhythm GI: GI Palp: Yes Soft to palpation and No Tenderness to palpation present (GI) Neuro: General: patient oriented x3 Assessment and Plan Assessment and plan (1) Dysphagia: Code(s): R13.10 - Dysphagia, unspecified Status: Acute Assessment and Plan: EGD with possible biopsy or dilatation or cautery.
[2022-10-21 12:22] VITALS: BMI 25.9
[2022-10-21 12:23] VITALS: BP 155/72; PULSE 73; RESP 20; TEMP 37; O2SAT 100
[2022-10-21] MEDS: LACTATED RINGERS 1,000 ML 150 ML IV CONT (12:39)
[2022-10-21 13:14] VITALS: BP 136/65; PULSE 70; RESP 16; O2SAT 100
[2022-10-21 13:24] VITALS: BP 132/88; PULSE 69; RESP 18; O2SAT 100
--- NOTE | 2022-10-21 13:28 | WPDANESPN ---
Anes - Prog Note Post-Op Date/Time: 10/21/22 13:28 Cardiovascular status: normal Respiratory status: normal Airway patency: baseline Mental status: baseline Post-Op hydration status: normal Vital Signs: Last Vital Signs Temp 37.0 C 10/21/22 12:23 Pulse 69 10/21/22 13:24 Resp 18 10/21/22 13:24 BP 132/88 10/21/22 13:24 Pulse Ox 100 10/21/22 13:24 O2 Del Method Room Air 10/21/22 13:24 Pain Score (VAS): 0 I/O: Intake & Output 10/20/22 10/21/22 10/21/22 23:59 07:59 15:59 Intake Total 100 Balance 100 Post-procedural complaints: none Patient Feedback: Patient satisfied with anesthetic care. Other Findings: Patient vital signs back to baseline. Patient denies nausea and vomiting. Patient's pain under control. Patient OK for discharge.
[2022-10-21 13:34] VITALS: BP 132/88; PULSE 69; RESP 18; O2SAT 100
== END 2022-10-21 12:58 | disposition home or self-care (01) ==
PROVIDERS: PCP Internal Medicine; Visit Provider Internal Medicine Gastroenterology
PROC: 0DJ08ZZ Inspection of Upper Intestinal Tract, Via Natural or Artificial Opening Endoscopic (ICD-10-PCS; CPT 43235; principal; 2022-10-21 13:30)
DX: K21.9 Gastro-esophageal reflux disease without esophagitis (principal)
CPT/HCPCS: 43239

== ENCOUNTER 2023-02-18 08:39 | Outpatient (CLI) | payer MEDICARE, SELFPAY ==
--- NOTE | ~2023-02-18 | CT_ITS ---
Clinical Indication: Lymphoma restaging CT Scan of the Neck, Chest, Abdomen, and Pelvis with Contrast: Technique: Contiguous sections were acquired throughout the neck, chest, abdomen, and pelvis after in travenous administration of 100 cc of Omnipaque 350. Dose reduction technique was used on this scan by utilizing automated exposure control and iterative reconstruction technique. The dose-length produ ct (DLP) was 1295.04 mGy-cm. COMPARISON: 08/30/2022 Findings: No lymphadenopathy or abnormal soft tissue mass seen in the neck. Probable cystic nodule ri ght thyroid lobe is mildly decreased from prior exam. Parapharyngeal fat preserved bilaterally. Parot id and submandibular glands are unremarkable. Vascular structures are unremarkable. Visualized parana erasmo sinuses and mastoid air cells are clear. There is no evidence of any significant mediastinal, hilar or axillary lymphadenopathy. The mediastin al soft tissues and vascular structures appear normal. There is no evidence of pleural or pericardial effusion. Spiculated, semisolid density left upper lobe is slightly more prominent as compared to prior exam, n ow measuring up to approximately 13 mm in diameter (axial image 38). No other suspicious pulmonary ab normality seen. Biapical scarring again noted. Stable 5 mm left lower lobe pulmonary nodule (axial im age 89). The liver, spleen, pancreas, gallbladder, adrenals and kidneys are within normal limits. There are at herosclerotic calcifications of the aorta. No lymphadenopathy. No bowel obstruction or bowel wall thickening. There is no evidence to suggest acute appendicitis. Urinary bladder is unremarkable. No pelvic mass identified. No ascites. Impression: No abnormal lymphadenopathy. 13 mm spiculated density in the left upper lobe is slightly more prominent as compared to prior exam. Small neoplastic lesion is not excluded. Consider tissue sampling, PET/CT, or continued short interv al imaging follow-up in 3-6 months. Reviewed, dictated and finalized at location M. Impression: No abnormal lymphadenopathy. 13 mm spiculated density in the left upper lobe is slightly more prominent as c ompared to prior exam. Small neoplastic lesion is not excluded. Consider tissue sampling, PET/CT, or continued short interval imaging follow-up in 3-6 months.
[2023-02-18 09:14] LABS: Estimated Glomerular Filt Rate > 60
== END 2023-02-18 08:40 | disposition home or self-care (01) ==
PROVIDERS: PCP Internal Medicine; Visit Provider Nurse Practitioner Family
DX: C82.18 Follicular lymphoma grade II, lymph nodes of multiple sites (principal); R13.12 Dysphagia, oropharyngeal phase; E04.1 Nontoxic single thyroid nodule
CPT/HCPCS: 70491; 71260; 74177; Q9967

== ENCOUNTER 2025-04-05 13:06 | Observation (INO) | payer MEDICARE, SELFPAY ==
--- OUTSIDE RECORDS SUMMARY | 2001-06-26 04:00 | XMS_ITS | Continuity of Care Document ---
Author Organization [facility] Address [address] [place] [address] Phone Care Team Providers Care Oil And Gas Recruiter Name Role Phone Santy Melton DO Unavailable Unavailable Advance Directives Directive Yes / No Effective Date File Name No Information Encounters Encounter Description Practice Location Reason(s) For Visit Diagnoses Date Provider Providers Copied on Encounter [facility], [address], [place], [place], [id number], [place] tel:[phone] [facility] No Information Geronimo Lam. [address] [place], [address], [place]. tel: [phone] Family History Family Member Type Diagnosis Age At Onset No Information Payers Payer name Insurance type Covered democrat ID Authoriza tion(s) [place] [id number] Social History Type Description Quantity Date Captured Comments Sex Female Smoking Status No Information Chief Complaint And Reason For Visit No Information Reason For Referral Reason For Referral No Information History Of Present Illness Encounter Date Complaint History Of Prese nt Illness No Information Functional Status Date Functional Assessmen t No Information Instructions Date Instruction Additional Infor mation No Information Assessments Type Assessment Date No Information Patient Care Teams Name Effective Dates (start - stop) Status Members No Information
--- OUTSIDE RECORDS SUMMARY | 2001-06-26 04:00 | XMS_ITS | Continuity of Care Document ---
Author Organization [facility] Address [address] [place] [address] Phone Care Team Providers Care Half Section Ironer Name Role Phone Santy Melton DO Unavailable Unavailable Advance Directives Directive Yes / No Effective Date File Name No Information Encounters Encounter Description Practice Location Reason(s) For Visit Diagnoses Date Provider Providers Copied on Encounter [facility], [address], [place], [place], [id number], [place] tel:[phone] [facility] No Information Geronimo Lam. [address] [place], [address], [place]. tel: [phone] Family History Family Member Type Diagnosis Age At Onset No Information Payers Payer name Insurance type Covered constitution party ID Authoriza tion(s) [place] [id number] Social History Type Description Quantity Date Captured [...]
--- OUTSIDE RECORDS SUMMARY | 2001-06-26 04:00 | XMS_ITS | Continuity of Care Document ---
Author Organization [facility] Address [address] [place] [address] Phone Care Team Providers Care Warehouse Supervisor Name Role Phone Santy Melton DO Unavailable Unavailable Advance Directives Directive Yes / No Effective Date File Name No Information Encounters Encounter Description Practice Location Reason(s) For Visit Diagnoses Date Provider Providers Copied on Encounter [facility], [address], [place], [place], [id number], [place] tel:[phone] [facility] No Information Geronimo Lam. [address] [place], [address], [place]. tel: [phone] Family History Family Member Type Diagnosis Age At Onset No Information Payers Payer name Insurance type Covered republican ID Authoriza tion(s) [place] [id number] Social History Type Description Quantity Date Captured [...]
--- OUTSIDE RECORDS SUMMARY | 2001-06-26 04:00 | XMS_ITS | Continuity of Care Document ---
Author Organization [facility] Address [address] [place] [address] Phone Care Team Providers Care Corporate Health Consultant Name Role Phone Santy Melton DO Unavailable Unavailable Advance Directives Directive Yes / No Effective Date File Name No Information Encounters Encounter Description Practice Location Reason(s) For Visit Diagnoses Date Provider Providers Copied on Encounter [facility], [address], [place], [place], [id number], [place] tel:[phone] [facility] No Information Geronimo Lam. [address] [place], [address], [place]. tel: [phone] Family History Family Member Type Diagnosis Age At Onset No Information Payers Payer name Insurance type Covered democrat ID Authoriza tion(s) [place] [id number] Social History Type Description Quantity Date Captured [...]
[2025-04-05] VITALS (7 sets, daily range): BP systolic 133–161; BP diastolic 61–85; PULSE 60–96; RESP 13–18; TEMP 36.6; O2SAT 98–100; BMI 24.6
--- NOTE | ~2025-04-05 | US_ITS ---
US thyroid INDICATION: Thyroid nodule follow-up TECHNIQUE: Real-time sonographic images of the thyroid gland were obtained. COMPARISON: Ultrasound dated 09/06/2022 FINDINGS: The right thyroid lobe measures 3.8 x 2.6 x 2.6 cm. The left thyroid lobe measures 1.8 x 0.9 x 1.1 cm. There is normal echotexture and echogenicity throughout the thyroid gland. In the right lobe there is a stable heterogeneous partially cystic 2.3 cm hypoechoic mass which is mostly solid, hypoechoic, wider than tall, smoothly marginated without echogenic foci, TR 4 Normal vascular flow is present. IMPRESSION: 1. Stable right thyroid mass measuring 2.3 cm, TR 4. Twelve-month follow-up ultrasound recommended. Reviewed, dictated and finalized at location O. T REGISTRY OFFICER IMPRESSION: 1. Stable right thyroid mass measuring 2.3 cm, TR 4. Twelve-month follow-up ul trasound recommended.
--- NOTE | ~2025-04-05 | XR_ITS ---
XR chest 1V portable 04/05/2025 13:41 Indication: Weakness. Follicular lymphoma. Procedure: AP portable chest Comparison: 04/18/2017 Findings: Left upper lobe pneumonia. Lymphomatous involvement of the left upper lobe is not excluded. Heart size upper normal. Left basilar atelectasis. No pleural effusion or pneumothorax. No acute osseous abnormality. Impression: 1: Left upper lobe pneumonia. Lymphomatous involvement of the left upper lobe not excluded. Reviewed, dictated and finalized at location O. X KERNEL ENGINEER Impression: 1: Left upper lobe pneumonia. Lymphomatous involvement of the left upper lobe n ot excluded.
--- NOTE | ~2025-04-05 | CT_ITS ---
EXAMINATION: CT brain wo con DATE: 04/05/2025 13:17 INDICATION: Right upper extremity weakness TECHNIQUE: Computed tomography (CT) of the head was performed without intravenous contrast. Sagittal and coronal reconstructions were performed. The mA was adjusted according to patient size. Iterative reconstruction technique was employed. The dose-length product was 605.33 mGy-cm. COMPARISON: head CT dated 03/19/2018 FINDINGS: No acute intracranial hemorrhage, acute infarction or abnormal extra axial fluid collection. There is mild scattered white matter hypoattenuation consistent with chronic small vessel ischemic disease. Symmetric prominence of the sulci and ventricles consistent with mild age-appropriate diffuse cerebral volume loss. Ventricles are normal and symmetric. No mass/mass effect. The orbits, paranasal sinuses and mastoid air cells are normal. IMPRESSION: 1. Normal aging brain. No acute intracranial process. Reviewed, dictated and finalized at location A. SPOOLER
--- NOTE | ~2025-04-05 | CT_ITS ---
EXAMINATION: CTA BRAIN/CAROTID DATE: 04/05/2025 13:26 INDICATION: Right upper extremity weakness TECHNIQUE: Computed tomographic angiography (CTA) of the head and neck was performed with 100 mL Omnipaque-350 intravenous contrast. Multiplanar reconstructions and maximum intensity projection 3D-reconstructions of the carotid arteries and of the intracranial arteries were created by the technologist on a separate workstation. Automated exposure control and iterative reconstruction technique were employed.The dose-length product was 957.46 mGy-cm. COMPARISON: Head CT dated 04/05/[address] with contrast dated 03/19/2018 FINDINGS: Intracranial arteries Vertebral arteries are codominant. Small amount of nonhemodynamically significant atherosclerotic plaque along the basilar and bilateral vertebral arteries and at the bilateral carotid siphons. There is no hemodynamically significant stenosis in the vertebral, basilar and internal carotid arteries. Both A1 segments and the left P1 segment are patent. The right posterior cerebral artery is supplied from the right internal carotid artery via a patent right posterior communicating artery. There is also a patent anterior communicating artery. There are no aneurysms identified. Cerebral arterial arborization appears symmetric. No abnormally enhancing brain lesions on the post contrast images. Carotid arteries: The aortic arch and the great vessels arising from the arch are normal in caliber with no dissection or hemodynamically significant stenosis. There is minimal atherosclerotic plaque with 0% stenosis of the right carotid bulb relative to normal distal artery lumen diameter (NASCET criteria). There is no evident atherosclerotic plaque with 0% stenosis of the left carotid bulb relative to normal distal artery lumen diameter. Bandlike consolidation in the left upper lobe and favor atelectasis over pneumonia. 1.5 cm right thyroid nodule. Severe cervical spondylosis with C5-C6-C7 anterior and posterior spinal fusion. IMPRESSION: 1. 0% stenosis of the right and left carotid bulbs relative to normal distal artery lumen diameter (NASCET criteria). 2. Unremarkable cerebral CT angiogram with no hemodynamic significant stenosis, thrombosis or aneurysm. 3. Bandlike consolidation in the left upper lobe and favor atelectasis over pneumonia. 4. Indeterminate 1.5 cm right thyroid nodule. Could consider thyroid ultrasound for risk stratification. Reviewed, dictated and finalized at location A. CHLIGHT OPERATOR IMPRESSION: 1. 0% stenosis of the right and left carotid bulbs relative to normal distal ar suresh lumen diameter (NASCET criteria). 2. Unremarkable cerebral CT angiogram with no hemodynamic significant stenosis, thrombosis or aneurysm. 3. Bandlike consolidation in the left upper lobe and favor atelectasis over pne umonia. 4. Indeterminate 1.5 cm right thyroid nodule. Could consider thyroid ultrasound for risk stratification.
--- NOTE | ~2025-04-05 | MR_ITS ---
EXAMINATION: MR brain/brain stem wo/w con DATE: 04/06/2025 16:17 INDICATION: Transient right-sided neurologic deficits TECHNIQUE: Magnetic resonance imaging (MRI) of the brain and brainstem was performed without and with 12 mL Multihance intravenous contrast. Sequences included sagittal and axial T1-weighted SE, axial diffusion-weighted FS SE, axial T2*-weighted GRE, axial T2-weighted FLAIR, and axial T2-weighted FSE. Postcontrast axial and coronal T1-weighted SE was obtained. Apparent diffusion coefficient (ADC) maps were created. COMPARISON: None. FINDINGS: There are no areas of restricted diffusion to suggest acute infarction. No intracranial hemorrhage or abnormal intracranial mass lesion. There are few small scattered foci of nonspecific increased T2-weighted signal intensity in the cerebral white matter, predominantly involving the deep and periventricular white matter which is within normal limits for age and likely sequela of chronic small vessel ischemic disease. There are no intraparenchymal signal abnormalities seen on the other pulse sequences. The ventricles are symmetric and normal in size. There are no abnormal extra-axial fluid collections. Flow voids are seen in the cerebral arteries on the T2-weighted sequences consistent with their expected patency. Mild mucosal thickening the bilateral ethmoid sinuses with fluid filling one of the posterior left ethmoid air cells. Eda bullosa of the right middle turbinate. Visualized orbits and soft tissues are unremarkable. There are no areas of abnormal enhancement on the post contrast images. IMPRESSION: 1. Normal for age brain. No acute intracranial process. Reviewed, dictated and finalized at location A. RANCE VERIFICATION REPRESENTATIVE
--- NOTE | 2025-04-05 13:14 | ECG_ITS ---
Test Date: 2025-04-05 13:39:43 Measurements Intervals [place] Rate: 93 P: 58 WA: 193 QRS: 27 QRSD: 78 T: 37 QT: 356 QTc: 443 Interpretive Statements SINUS RHYTHM POSSIBLE LEFT ATRIAL ENLARGEMENT [-0.1mV P-WAVE IN V1/V2] MINIMAL ST DEPRESSION [0.025+ mV ST DEPRESSION] No previous ECG available for comparison Electronically Signed On 04-05-2025 21:26:15 [employer] by Curtis Medeiros M.D.
[2025-04-05 13:43] LABS: Hematocrit 38.9 % (37.0-47.0); Hemoglobin 13.0 g/dL (12.0-15.0); Immature Granulocyte Percent A 0.4 % (0-0.5); Lymphocytes Absolute Auto 1.33 K/mm3 (0.9-3.2); Mean Corpuscular HGB Conc 33.4 g/dl (32-36); Mean Corpuscular Hemoglobin 31.6 pg (26-34); Mean Corpuscular Volume 94.4 fl (80-100); Nucleated Red Blood Cells Absolute Auto 0.000 K/mm3 (0.0-0.012); Nucleated Red Blood Cells Perc 0.0 % (0.0-0.2); Platelet Count Result 156 k/mm3 (150-375); Red Blood Count 4.12 M/mm3 (4.2-5.4); White Blood Count 5.1 K/mm3 (4.5-10.0)
[2025-04-05 13:56] LABS: Alanine Aminotransferase 23 U/L (6-35); Albumin Level 4.7 g/dL (3.5-5.1); Alkaline Phosphatase 65 U/L (38-126); Anion Gap 10 mmol/L (4-12); Aspartate Amino Transferase 29 U/L (14-36); Bilirubin,Total 0.8 mg/dL (0.2-1.3); Blood Urea Nitrogen 14 mg/dL (7-17); Calcium 9.5 mg/dL (8.4-10.2); Carbon Dioxide 27 mmol/L (22-30); Chloride 100 mmol/L (98-107); Estimated CRCL calculation 45 ml/min; Estimated Glomerular Filt Rate > 60; Glucose 114 mg/dL (65-110); INR 0.9; Potassium 3.1 mmol/L (3.4-5.0); Prothrombin Time 12.5 Seconds (11.1-14.7); Sodium 137 mmol/L (137-145); Total Protein 7.1 g/dL (6.3-8.2)
[2025-04-05 13:57] LABS: Partial Thromboplastin Time 25.6 Seconds (22.3-36.8)
--- NOTE | 2025-04-05 13:58 | ED_ITS ---
HPI - Neuro Symptoms/Deficit General Chief Complaint: Suspected CVA Stated Complaint: right side facial and arm numbness Time Seen by Provider: 04/05/25 13:12 History of Present Illness HPI Narrative: Who this is a 89-year-old female with history of Hodgkin's lymphoma on bimonthly immunotherapy who presents the ED for concerns for stroke. Patient's daughter states that patient was getting out of her car when she began to complain of right arm numbness and right facial numbness at 12:15 p.m. they state that this did resolve after about 30 minutes. Patient is not on any medications aside from the bimonthly infusions. Denies headache, weakness, changes in vision at this time. No new medications recently. Related Data Home Medications ?Medication ?Instructions ?Recorded ?Confirmed ?Last Taken ?Type rituximab 10 mg/mL 100 mg IV .H2dzjeq 04/05/25 04/05/25 03/16/25 History concentrate,intravenous (Rituxan) Allergies Allergy/AdvReac Type Severity Reaction Status Date / Time Sulfa (Sulfonamide Allergy Mild Rash Verified 04/05/25 17:02 Antibiotics) codeine AdvReac Severe NAUSEA AND Verified 04/05/25 17:02 VOMITING Review of Systems 2 Review of Systems: Gen.: Denies fevers or chills Eyes: Denies eye pain or visual change ENT: Denies congestion Respiratory: Denies shortness of breath or cough CV: Denies chest pain or palpitations GI: Denies abdominal pain nausea, emesis or diarrhea denies burning, urgency, frequency or hematuria Musculoskeletal: Denies back pain or muscle pain Neuro: As per HPI Skin: Denies rash Except as documented, all other systems reviewed and negative [facility] Past Medical History Medical History (Updated 04/05/25 @ 19:58 by Sherwin Haji DO) History of shingles Lung cancer Dysphagia Globus sensation Basal cell carcinoma of foot Hodgkins lymphoma Kidney stone Breast mass Abnormal breast biopsy Infertility, tubal origin Surgical History Surgical History History of hysterectomy Hx of fusion of cervical spine H/O lymph node biopsy H/O neck surgery Family History Family History Sibling Hypertension Family history of elevated blood lipids Family history of malignant neoplasm Family history of kidney disease Family history of malignant neoplasm of ovary Mother Family history of heart disease in male family member before age 55 Social History Social History Smoking status: Never smoker Alcohol intake: never Substance use: never Substance use type: does not use Lack of Transportation: No Lack of Food: Never True Current Housing: I Have Housing Concerned About Future Housing: No Difficulty Paying Gas/Electric Bills: No Difficulty Paying for Meds: No Currently Unemployed: No Education: Decline to Answer Difficulty w/ Childcare or Family Care: No Spiritual care concerns: No Exam 2 Narrative: APPEARANCE: No acute distress, nontoxic, resting in bed EYES: EOMI HEENT: Normocephalic, atraumatic, OMM RESPIRATORY: No respiratory distress Clear to auscultation bilaterally with no rhonchi wheezing or rales. CARDIOVASCULAR: Regular rate and rhythm without murmurs rubs or gallops. ABDOMINAL: Soft, nontender, nondistended, no rebound or guarding MUSCULOSKELETAl: Moves all extremities. No clubbing, cyanosis or edema. NEURO: Awake and alert. Following commands, speech normal, no focal deficits. NIHSS 0 SKIN:: Warm, dry. No rashes lesions or abrasions PSYCHIATRIC: Normal affect/mood, Course Vital Signs Vital signs: Vital Signs Temperature 97.8 F 04/05/25 13:30 Pulse Rate 93 04/05/25 13:30 Respiratory Rate 13 04/05/25 13:30 Blood Pressure 161/80 H 04/05/25 13:30 Pulse Oximetry 100 04/05/25 13:30 Temperature 97.8 F 04/05/25 13:41 Pulse Rate 60 04/05/25 16:21 Respiratory Rate 16 04/05/25 16:21 Blood Pressure 140/85 04/05/25 16:21 Pulse Oximetry 98 04/05/25 16:21 Oxygen Delivery Room Air 04/05/25 13:41 MDM - Neuro Symptoms/Deficit MDM Narrative Medical decision making narrative: 85-year-old female Presenting for stroke-like symptoms. Patient seen at stroke stop Initially, NIHSS is 0. Patient taken to CT immediately after this. On initial evaluation patient was in no acute distress afebrile, hemodynamic stable. Differentials include but are not limited to: CVA, TIA, ICH, meningitis, UTI, cancer, drug intoxication, hypoglycemia, electrolyte abnormality Notable exam findings: NIHSS is 0. Heart and lungs clear. Abdomen soft and nontender. Notable lab findings: CBC without significant abnormalities. Mild hypokalemia at 3.1. UA clear. Notable imaging findings: CT head and CTA head/neck showed no acute process. Chest x-ray showed possible left upper lobe infiltrate Patient remained asymptomatic throughout her ED course. Given the symptoms and the signs observed by family member, I suspect the patient did have a TIA. She was given aspirin and Plavix. I discussed the case with Dr. Fernandez, neurology, will see the patient as consult, recommends MRI for tomorrow. Patient may have had pneumonia to the left upper lobe but this may be consistent with her previous scarring that family had noted but does appear larger than prior CT scans, no recent chest x-ray able to compare to. She was given Rocephin to cover for any possible pneumonia at this time. Case was discussed with hospitalist who will admit the patient. Medical Records Attestation: I reviewed the patient's medical records. Lab Data Attestation: I reviewed the patient's lab results. 04/05/25 13:34 04/05/25 13:34 Labs: Lab Results 04/05/25 04/05/25 Range/Units 13:13 13:34 WBC 5.1 (4.5-10.0) K/mm3 RBC 4.12 L (4.2-5.4) M/mm3 Hgb 13.0 (12.0-15.0) g/dL Hct 38.9 (37.0-47.0) % MCV 94.4 (80-100) fl MCH 31.6 (26-34) pg MCHC 33.4 (32-36) g/dl RDW 13.1 (11.5-14.5) % Plt Count 156 (150-375) k/mm3 MPV 9.7 (7.4-10.4) fl Immature Gran % (Auto) 0.4 (0-0.5) % Neut % (Auto) 63.1 (45.5-73.1) % Lymph % (Auto) 26.1 (18.3-44.2) % [place] % (Auto) 8.8 H (2.6-8.5) % Eos % (Auto) 1.2 (0-4.4) % Baso % (Auto) 0.4 (0.2-1.2) % Lymph # (Auto) 1.33 (0.9-3.2) K/mm3 [place] # (Auto) 0.5 (0.1-0.6) K/mm3 Eos # (Auto) 0.1 (0-0.3) K/mm3 Baso # (Auto) 0.0 (0.0-0.1) K/mm3 Abs Immat Gran (auto) 0.02 (0.00-0.031) K/mm3 Absolute Neuts (auto) 3.2 (1.3-6.7) K/mm3 Absolute Nucleated RBC 0.000 (0.0-0.012) K/mm3 Nucleated RBC % 0.0 (0.0-0.2) % PT 12.5 (11.1-14.7) Seconds INR 0.9 APTT 25.6 (22.3-36.8) Seconds Sodium 137 (137-145) mmol/L Potassium 3.1 L (3.4-5.0) mmol/L Chloride 100 (98-107) mmol/L Carbon Dioxide 27 (22-30) mmol/L Anion Gap 10 (4-12) mmol/L BUN 14 (7-17) mg/dL Creatinine 0.69 L (0.7-1.0) mg/dL Estim Creat Clear Calc 45 ml/min Estimated GFR > 60 (59 - ) Glucose 114 H (65-110) mg/dL POC Capillary Glucose 118 H (65-105) mg/dl Calcium 9.5 (8.4-10.2) mg/dL Total Bilirubin 0.8 (0.2-1.3) mg/dL AST 29 (14-36) U/L ALT 23 (6-35) U/L Alkaline Phosphatase 65 (38-126) U/L Troponin I < 0.012 (0.000-0.034) ng/mL Total Protein 7.1 (6.3-8.2) g/dL Albumin 4.7 (3.5-5.1) g/dL Imaging Data Attestation: I personally reviewed and interpreted this imaging study as follows: My impression: Chest x-ray: Left upper lobe infiltrate Radiologist's impression: Impressions Head CT 04/05/25 13:18 IMPRESSION: 1. Normal aging brain. No acute intracranial process. Chest X-Ray 04/05/25 13:43 Impression: 1: Left upper lobe pneumonia. Lymphomatous involvement of the left upper lobe not excluded. Head/Neck CTA 04/05/25 13:53 IMPRESSION: 1. 0% stenosis of the right and left carotid bulbs relative to normal distal artery lumen diameter (NASCET criteria). 2. Unremarkable cerebral CT angiogram with no hemodynamic significant stenosis, thrombosis or aneurysm. 3. Bandlike consolidation in the left upper lobe and favor atelectasis over pneumonia. 4. Indeterminate 1.5 cm right thyroid nodule. Could consider thyroid ultrasound for risk stratification. ECG Data EKG #1: Attestation: I personally reviewed and interpreted this ECG as follows: ECG completion date: 04/05/25 ECG completion time: 13:39 Interpretation: Normal sinus rhythm, normal axis, left atrial enlargement, no T-wave changes, minimal ST depressions in septal leads, no ST elevations Discharge Plan Discharge Clinical Impression: TIA (transient ischemic attack) CAP (community acquired pneumonia) Qualifiers: Laterality: left Lung location: upper lobe of lung Qualified Code(s): J18.9 - Pneumonia, unspecified organism Patient Disposition: Still a Patient Condition: Stable
[2025-04-05] MEDS: ONDANSETRON INJ 4 MG/2 ML VIAL IV PUSH (14:04)
[2025-04-05 14:08] LABS: Troponin I < 0.012 ng/mL (0.000-0.034)
--- OUTSIDE RECORDS SUMMARY | 2025-04-05 14:46 | XMS_ITS | Encounter Summary ---
Author Organization [employer] Address 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 Name Role Phone Unavailable Primary Care Provider Unavailabl e Encounter Details Date Type Department Care Team (Late st Contact Info) Description 02/06/1999 Outpatient Historical [facility] LAB,NON-PATIENT Xi Burgos MD [address] [facility] [address] [place] [address] Urinary tract infection, site not specified (Primary Dx) Social History Tobacco Use Types Packs/Day Years Used Date Smoking Tobacco: Never Assessed Comments Unknown Sex and Gender Information Value Date Recorded Sex Assigned at Not on file 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
--- OUTSIDE RECORDS SUMMARY | 2025-04-05 14:46 | XMS_ITS | Clinical Summary ---
Author Organization [facility] Address [address] [place] [id number] Care Team Providers Care Room Manager Name Role Phone Unavailable Primary Care Provider Unavailabl e Social History Tobacco Use Types Packs/Day Years Used Date Smoking Tobacco: Never Assessed Comments Unknown Sex and Gender Information Value Date Recorded Sex Assigned at Not on file Legal Sex Female 12:58 PM CDT Gender Identity Not on file Sexual Orientation Not on file Plan of Treatment Health Maintenance Due Date Last Done Comments DTaP, Tdap and Td Vaccines ( 1 - Tdap) 1961 Pneumococcal Vaccine: 50+ Ye ars (1 of 1 - PCV) 1992 Zoster Vaccines (1 of 2) 1992 Dexa Scan (General) 2007 RSV Immunization or 60+ Years (1 - 1-dose 75+ series) 2017 COVID-19 Vaccine ( - 2024-2 6 season) 2025 Influenza Adult (#1) 2025 Hepatitis A Vaccines Aged Out No long er eligible based on patient's age to complete this topic Meningococcal B Vaccine Aged Out No l onger eligible based on patient's age to complete this topic Meningococcal Vaccine Aged Out No jg milan eligible based on patient's age to complete this topic RSV Immunizations Under 20 Months Aged Out No longer eligible based on patient's age to complete this topic
--- OUTSIDE RECORDS SUMMARY | 2025-04-05 14:46 | XMS_ITS ---
Author Organization [facility] Address [address] [place] [address] Care Team Providers Care Rural Route Mail Carrier Name Role Phone Walt Tadeo DO Unavailable [phone] Chapo An MD Unavailable [phone] Benito Olsen MD Primary Care Provider [phone] Active Problems Problem Noted Date Diagnosed Date Encounter for person encountering health service s 01/14/2025 Malignant neoplasm of upper lobe of left lung Nodule of apex of left lung 08/20/2024 Personal history of radiation therapy 04/01/2024 Throat pain in adult 12/24/2022 Hyperlipidemia 04/09/2021 Osteopenia 01/28/2019 Vitamin D deficiency 01/28/2019 Follicular lymphoma grade II of lymph nodes of multiple sites 12/10/2017 Cancer Staging:Clinical stage from 02/24/2015:Stage IV(Follicular lymphoma) - Signed by Walt Tadeo DO on 12/11/2017 Current Treatment and Therapy Plans RiTUXimab Maintenance Every 8 Weeks - Lymphoma* Plan Start Date:06/18/2023 Plan Provider:Walt Tadeo DO Linked Problems Follicular 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 Past Treatment and Therapy Plans Line Care Plan Name Start Date Discontinue Date Treatment Medications Discontinue Reason Plan Provider IV Maintenance Therapy Plan 03/31/2024 01/13/2025 No medications scheduled. Therapy Complete Walt Tadeo DO IV MAINTENANCE THERAPY PLAN 10/31/2020 07/30/2021 No medications scheduled. Therapy Complete Walt Tadeo DO Oncology Chemotherapy Treatment Plan Name Start Date Discontinue Date Treatment Medications Discontinue Reason Plan Provider Cycles RiTUXimab Weekly x 4 - Lymphoma 04/30/20 23 06/10/2023 riTUXimab-abbs (TRUXIMA) IVPB in 500 mL Therapy Complete Walt Tadeo DO 1 of 1 cycle completed Lenalinomide / RiTUXimab 28 Day Cycles - Follicular Lymphoma 10/31/2020 05/24/2021 lenalidomide (REVLIMID)Caro Ximab-pvvr (RUXIENCE) IVPB in 500 mL Therapy Complete Walt Tadeo DO 6 of 6 cycles completed Rituximab Maintenance Every 8 Weeks - Lymphoma 8 06/07/2019 riTUXimab (RITUXAN) IVPB in 500 mL Therapy Complete Walt Tadeo DO 3 of 3 cycles started Radiation Treatments (No Episode) * Course C2_LUL_202408/19/2024 - 08/23/2024 Treatment Period Energy Fraction Dose Fractions Total Dose Plans Planned [id number]_LUL_LUNG 08/19/2024 - 08/23/2024 1,800 3 / 5,400 Reference Points Delivered [id number] 08/19/2024 - 08/23/2024 5,400 * Course C1_HN_202302/23/2024 - 08/19/2024 Treatment Period Energy Fraction Dose Fractions Total Dose Plans Planned R NECK 02/23/2024 - 08/19/2024 200 2 / 400 Reference Points Delivered R [id number]_400 02/23/2024 - 08/19/2024 400
--- OUTSIDE RECORDS SUMMARY | 2025-04-05 14:46 | XMS_ITS | Encounter Summary ---
Author Organization [employer] Address [address] [place] [address] Care Team Providers Care Circular Knitter Name Role Phone Unavailable Primary Care Provider Unavailabl e Encounter Details Date Type Department Care Team (Late st Contact Info) Description 12/21/1998 Outpatient Historical [facility] MRI DEPT Xi Burgos MD [address] 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
--- OUTSIDE RECORDS SUMMARY | 2025-04-05 14:46 | XMS_ITS | Encounter Summary ---
Author Organization [employer] Address 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
--- OUTSIDE RECORDS SUMMARY | 2025-04-05 14:46 | XMS_ITS | Encounter Summary ---
Author Organization [employer] Address [address] [place] [address] Care Team Providers Care Buttonhole Maker Name Role Phone Unavailable Primary Care Provider Unavailabl e Encounter Details Date Type Department Care Team (Late st Contact Info) Description 07/18/1998 Outpatient Historical [facility] X/RAY HOSP Xi Burgos MD [address] 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
--- OUTSIDE RECORDS SUMMARY | 2025-04-05 14:46 | XMS_ITS | Clinical Summary ---
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 Name Role Phone Walt Tadeo DO Unavailable [phone] Chapo An MD Unavailable [phone] Benito Olsen MD Primary Care Provider [phone] Allergies Active Allergy Reactions Criticality Noted Date Comments Codeine Nausea only,Nausea & Vomiting High 07/23/2017 Nitrofurantoin Monohyd/M-Cryst Unknown 06/06/2021 Sulfa (Sulfonamide Antibiotics) Rash Medium 03/08/2015 Medications bismuth subsalicylate (PEPTO-BISMOL) 262 mg tablet,chewable 1 tablet (262 mg total) Active ergocalciferol (VITAMIN D) 50,000 unit capsuleIndications :Vitamin D Deficiency Take 1 capsule (50,000 Units total) by mouth once a week 12 capsule 3 5 01/20/20 26 Active Active Problems Problem Noted Date Diagnosed Date [...] Signed by Walt Tadeo DO on 12/11/2017 Encounters Date Type Department Care Team Description 03/17/2025 9:00 AM CDT Telemedicine [facility] Medical Office Building 2 Radiation Oncology [address] [place] [address] Maryuri Lorenz, PA Malignant neoplasm of upper lobe of left lung (HCC) (Primary Dx); Follicular lymphoma grade II of lymph nodes of multiple sites (HCC); Personal history of radiation therapy 03/16/2025 10:00 AM CDT Infusion [facility] at [address] [phone] Follicular lymphoma grade II of lymph nodes of multiple sites (HCC) (Primary Dx); Encounter for person encountering health services 03/16/2025 9:30 AM CDT Office Visit [facility] [address] [place] [phone] Walt Tadeo DO Follicular lymphoma grade II of lymph nodes of multiple sites (HCC) (Primary Dx) 03/16/2025 9:00 AM CDT Lab [facility] at [address] [address] Follicular lymphoma grade II of lymph nodes of multiple sites (HCC); Vitamin D deficiency 03/09/2025 8:37 AM CDT - 03/09/2025 11:59 PM CDT Hospital Encounter [facility] Medical Office Building [address] [place] [address] Follicular lymphoma grade II of lymph nodes of multiple sites (HCC) Discharge Disposition: Discharge to home or self care 02/15/2025 Telephone [facility] [address] [place] [phone] Marcia Gunn, FUR STYLIST 01/19/2025 9:30 AM CDT Infusion [address] [phone] Follicular lymphoma grade II of lymph nodes of multiple sites (HCC) (Primary Dx); Encounter for person encountering health services 01/19/2025 9:00 AM CDT Office Visit [facility] [address] [place] [phone] Walt Tadeo DO Follicular lymphoma grade II of lymph nodes of multiple sites (HCC) (Primary Dx); Vitamin D deficiency 01/19/2025 8:30 AM CDT Lab [facility] at [address] [address] Follicular lymphoma grade II of lymph nodes of multiple sites (HCC) 01/14/2025 7:48 AM CDT - 01/14/2025 11:59 PM CDT Hospital Encounter [facility] Medical Office Building [address] [place] [address] Follicular lymphoma grade II of lymph nodes of multiple sites (HCC); Malignant neoplasm of upper lobe of left lung (HCC) Discharge Disposition: Discharge to home or self care from Last 3 Months Immunizations Immunization Administration Dates Next Due Influenza, Quadrivalent, Hig h Dose, Preservative Free, Intrr 03/26/2020 Influenza, Quadrivalent, Spl it, Preservative Free, Intramuscular 04/03/2017 Influenza, Trivalent, High D ose, Split, Preservative Free, Intramuscular 04/22/2019,04/09/2018,03/18/2016,04/03,03/18/2011,03/16/2010,03/28/2008 ,04/07/2007 Influenza, Trivalent, IM (MDV) 03/24/2015 Influenza, Trivalent, Preser vative Free, Intramuscular 03/29/2014,04/13/2013 Influenza, Unspecified 04/02/2022,2017,11/26/2016,03/15,03/22/2015 Moderna SARS-CoV-2 Monovalen t Vaccination (12+ YRS) 04/16/2021,08/08/2020,07/06/2020 Pneumococcal Conjugate PCV 13 07/30/2018 Pneumococcal Polysaccharide PPV23 04/16/2007 ZOSTER LIVE 06/09/2017, 7,11/26/2016,09/03,06/07/2016,04/19/2016,03/15/2016 ,02/23/2016 Surgical History Surgery Date Site/Laterality Comments COLONOSCOPY NECK SURGERY HYSTERECTOMY BREAST SURGERY BIOPSY lymph node KIDNEY STONE SURGERY SKIN CANCER EXCISION Basal cell carinoma right foot Medical History Medical History Date Comments Non Hodgkin's lymphoma (HCC) HL (hearing loss) Tinnitus Lung mass Family History Medical History Relation Name Comments Lung cancer Brother 1 Prostate cancer Brother 1 Skin cancer Brother 2 Prostate cancer Brother 3 Breast cancer Father's Sister Diabetes Maternal Grandmother Heart disease Mother Ovarian cancer Sister Relation Name Status Comments Brother 1 Alive Brother 2 Alive Brother 3 Father's Sister Maternal Grandmother Mother Sister Social History Tobacco Use Types Packs/Day Years Used Date Smoking Tobacco: Never Smokeless Tobacco: Never Tobacco Cessation:Counseling Given: Not Answered Alcohol Use Standard Drinks/Week Comments No 0 (1 standard drink = 0.6 oz pur e alcohol) AUDIT-C Answer Date Recorded Frequency of Alcohol Consumption Not on file 03/16/2025 Q2: How many drinks containi ng alcohol do you have on a typical day when you are drinking? 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 Gender Identity Not on file Sexual Orientation Not on file Last Filed Vital Signs Vital Sign Reading Time Taken Comments Blood Pressure 139/70 03/16/2025 11:37 AM CDT Pulse 65 03/16/2025 11:37 AM CDT Temperature 36.8 C (98.2 F) 03/16/2025 11:37 AM CDT Respiratory Rate 16 03/16/2025 11:3 7 AM CDT Oxygen Saturation 99% 03/16/2025 11: 37 AM CDT Inhaled Oxygen Concentration - - Weight 60.6 kg (133 lb 9.6 oz) 03/16/2025 9:01 AM CDT with shoes Height 157.5 cm (5' 2) 09/29/2024 7:56 AM CDT pt refused to remove shoes Body Mass Index 24.44 09/29/2024 7:56 AM CDT Plan of Treatment Health Maintenance Due Date Last Done Comments Depression Screening 1940 Osteoporosis Screening-Bone Density Scan 1940 DTaP/Tdap/Td Vaccine (1 - Tdap) 1953 Hepatitis B Screening 1960 Well Visit 65+ 2007 Zoster Vaccine (1 of 2) 08/04/2017 06/09/19 18, 02/27/2017, 11/26/2016, Additional history exists Covid-19 Vaccine (2024-2 6 season) 2025 05/01/2024, 04/05/2023, 04/06/2022, Additional history exists Influenza Vaccine (#1) 2025 , 04/26/2023, 04/02/2022, Additional history exists Fall Risk Assessment 02/08/2025 02/09/2024 Pneumococcal vaccine 65+ Completed 07/30/2018, 04/02 Procedures Procedure Name Priority Date/Time Associated Diagnosis Comments EGFR Routine 03/16/2025 8:51 AM CDT Follicular lymphoma grade II of lymph nodes of multiple sites (HCC) DIFFERENTIAL AUTO Routine 03/16/2025 8:5 1 AM CDT Follicular lymphoma grade II of lymph nodes of multiple sites (HCC) VITAMIN D 25 HYDROXY Routine 03/16/2025 8:51 AM CDT Follicular lymphoma grade II of lymph nodes of multiple sites (HCC) Vitamin D deficiency CBC WITH AUTO DIFFERENTIAL Routine 03/16/2025 8:51 AM CDT Follicular lymphoma grade II of lymph nodes of multiple sites (HCC) COMPREHENSIVE METABOLIC PANEL Routine 03/16/2025 8:51 AM CDT Follicular lymphoma grade II of lymph nodes of multiple sites (HCC) LACTATE DEHYDROGENASE Routine 03/16/2025 8:51 AM CDT Follicular lymphoma grade II of lymph nodes of multiple sites (HCC) CT CHEST W CONTRAST Schedule Routine, Read Routine (OP Routine) 03/09/2025 8:55 AM CDT Follicular lymphoma grade II of lymph nodes of multiple sites (HCC) POCT CREATININE FOR CONTRAST EVALUATION Routine 03/09/2025 8:54 AM CDT EGFR Routine 01/19/2025 8:35 AM CDT Follicular lymphoma grade II of lymph nodes of multiple sites (HCC) DIFFERENTIAL AUTO Routine 01/19/2025 8:3 5 AM CDT Follicular lymphoma grade II of lymph nodes of multiple sites (HCC) CBC WITH AUTO DIFFERENTIAL Routine 01/19/2025 8:35 AM CDT Follicular lymphoma grade II of lymph nodes of multiple sites (HCC) COMPREHENSIVE METABOLIC PANEL Routine 01/19/2025 8:35 AM CDT Follicular lymphoma grade II of lymph nodes of multiple sites (HCC) LACTATE DEHYDROGENASE Routine 01/19/2025 8:35 AM CDT Follicular lymphoma grade II of lymph nodes of multiple sites (HCC) PET/CT FDG SKULL TO THIGH Schedule Routine, Read Routine (OP Routine) 01/14/2025 9:21 AM CDT Follicular lymphoma grade II of lymph nodes of multiple sites (HCC) Malignant neoplasm of upper lobe of left lung (HCC) POCT GLUCOSE DEVICE Routine 01/14/2025 7 :57 AM CDT from Last 3 Months Results * eGFR (03/16/2025 8:51 AM CDT) eGFR 86 >=60 mL/min/1. 73 m2 Comment: Interpretive Data Reference Interval Normal >/= 90 mL/min/1.73m2 Mildly decreased* 60 - 89 mL/min/1.73m2 Mildly to moderately decreased 45 - 59 mL/min/1.73m2 Moderately to severely decreased 30 - 44 mL/min/1.73m2 Severely decreased 15 - 29 mL/min/1.73m2 Kidney Failure < 15 mL/min/1.73m2 *Relative to young adult level Estimated glomerular filtration rate is determined by the 2020 CKD-EPI equation recommended by the National Kidney Foundation (A Unifying Approach to GFR Estimation: Recommendations of the NKF-ASK Task Force on Reassessing the Inclusion of Race in Diagnosing Kidney Disease, JASN 2020). The CKD-EPI equation should not be used for patients with unstable renal function and has not been validated in children and those over 70. Current interpretive data was last reviewed 2021. Testing performed by: [address] [address] Blood 03/16/2025 8:51 AM CDT 03/16/2025 8:57 AM CDT us Celia Cabral NP LAB BLOOD ORDERABLES Final Result [facility] [place] [address] * Differential, auto (03/16/2025 8:51 AM CDT) Neutrophil abs 3.70 1.50 - 6.50 K/cumm Comment:Testing performed by : [address] [address] Imm gran abs 0.02 0.00 - 0.10 K/cumm [facility] Comment:Testing performed by : [address] [address] Lymphocyte abs 0.87 0.80 - 3.30 K/cumm [facility] Comment:Testing performed by : [address] [address] Monocyte abs 0.49 0.20 - 0.80 K/cumm [facility] Comment:Testing performed by : [address] [address] Eosinophil abs 0.08 0.00 - 0.50 K/cumm [facility] Comment:Testing performed by : [address] [address] Basophil abs 0.02 0.00 - 0.10 K/cumm [facility] Comment:Testing performed by : [address] [address] Neutrophil pct 71.4 % [facility] Comment: Interpretive Data Percent cell count reference ranges are not reported, since discordance with absolute values may lead to misinterpretation of CBC data. Current Interpretive Data was last revised on 2017. Testing performed by: [address] [address] Imm gran pct 0.4 % [facility] Comment: Interpretive Data Percent cell count reference ranges are not reported, since discordance with absolute values may lead to misinterpretation of CBC data. Current Interpretive Data was last revised on 2017. Testing performed by: [address] [address] Lymphocyte pct 16.8 % [facility] Comment: Interpretive Data Percent cell count reference ranges are not reported, since discordance with absolute values may lead to misinterpretation of CBC data. Current Interpretive Data was last revised on 2017. Testing performed by: [address] [address] Monocyte pct 9.5 % [facility] Comment: Interpretive Data Percent cell count reference ranges are not reported, since discordance with absolute values may lead to misinterpretation of CBC data. Current Interpretive Data was last revised on 2017. Testing performed by: [address] [address] Eosinophil pct 1.5 % [facility] Comment: Interpretive Data Percent cell count reference ranges are not reported, since discordance with absolute values may lead to misinterpretation of CBC data. Current Interpretive Data was last revised on 2017. Testing performed by: [address] [address] Basophil pct 0.4 % [facility] Comment: Interpretive Data Percent cell count reference ranges are not reported, since discordance with absolute values may lead to misinterpretation of CBC data. Current Interpretive Data was last revised on 2017. Testing performed by: [address] [address] Blood 03/16/2025 8:51 AM CDT 03/16/2025 8:57 AM CDT Celia Cabral FOREST PATHOLOGY PROFESSOR LAB BLOOD ORDERABLES Final Result [facility] [address] [facility] Department [place] [address] * (ABNORMAL) CBC with auto differential (03/16/2025 8:51 AM CDT) WBC 5.18 3.80 - 9.90 K/cumm Comment:Testing performed by : [address] [address] Hgb 13.0 11.9 - 15.5 g/dL [facility] Comment:Testing performed by : [address] [address] Hct 38.0 35.6 - 45.5 % [facility] Comment:Testing performed by : [address] [address] Plt 136(L) 150 - 400 K/cumm [facility] Comment:Testing performed by : [address] [address] MPV 9.5 9.1 - 12.3 fL [facility] Comment:Testing performed by : [address] [address] RBC 4.17 3.90 - 5.20 M/cumm [facility] Comment:Testing performed by : [address] [address] MCV 91.1 81.3 - 96.4 fL [facility] Comment:Testing performed by : [address] [address] MCH 31.2 27.1 - 33.3 pg [facility] Comment:Testing performed by : [address] [address] MCHC 34.2 32.3 - 35.7 g/dL [facility] Comment:Testing performed by : [address] [address] RDW CV 12.8 11.1 - 14.9 % [facility] Comment:Testing performed by : [address] [address] RDW SD 41.8 35.7 - 48.1 fL [facility] Comment:Testing performed by : [address] [address] NRBC abs 0.00 0.00 - 0.01 K/cumm [facility] Comment:Testing performed by : [address] [address] ANC Prelim 3.70 1.50 - 6.50 K/cumm [facility] Comment: Interpretive Data The rapid ANC is a preliminary automated count and may vary from the final ANC (Neut Abs) reported in the WBC differential that follows. Current interpretive data was last revised 2024. Testing performed by: [address] [address] Blood 03/16/2025 8:51 AM CDT 03/16/2025 8:57 AM CDT Celia Cabral NP LAB BLOOD ORDERABLES Final Result Performing Organization Address City/[facility] Co de Phone Number [address] [place] [address] * Vitamin D 25 hydroxy (03/16/2025 8:51 AM CDT) Pathologist [facility] Vitamin D 25-OH 51.0 30.0 - 80.0 ng/mL Blood 03/16/2025 8:51 AM CDT 03/16/2025 12:32 PM CDT Celia Cabral NP LAB BLOOD ORDERABLES Final Result Performing Organization Address City/[facility] de Phone Number [address] [place] [address] * Lactate dehydrogenase (LD) (03/16/2025 8:51 AM CDT) [facility] Lactate dehydrogenase (LDH) 201 100 - 250 Units/L Comment:Testing performed by : [address] [address] Blood 03/16/2025 8:51 AM CDT 03/16/2025 8:57 AM CDT Celia Cabral NP LAB BLOOD ORDERABLES Final Result [facility] [address] [facility] Department [place] [address] * Comprehensive metabolic panel (03/16/2025 8:51 AM CDT) Sodium 142 135 - 145 mmol/L Comment:Testing performed by : [address] [address] Potassium, pl 3.5 3.3 - 4.9 mmol/L [facility] Comment:Testing performed by : [address] [address] Chloride 100 97 - 110 mmol/L [facility] Comment:Testing performed by : [address] [address] CO2 31 22 - 32 mmol/L [facility] Comment:Testing performed by : [address] [address] Anion gap 11 2 - 15 mmol/L [facility] Comment:Testing performed by : [address] [address] BUN 7 6 - 25 mg/dL [facility] Comment:Testing performed by : [address] [address] Creatinine 0.70 0.60 - 1.10 mg/dL [facility] Comment:Testing performed by : [address] [address] Glucose 106 70 - 199 mg/dL [facility] Comment: Interpretive Data Fasting glucose >/= 126 mg/dl is diagnostic for diabetes. Fasting is defined as no caloric intake for at least 8 hours. Fasting glucose between 100 mg/dl to 125 mg/dl is diagnostic of prediabetes. In a patient with classic symptoms of hyperglycemia or hyperglycemic crisis, a random glucose >/= 200 mg/dl is diagnostic for diabetes. In the absence of unequivocal hyperglycemia, results should be confirmed by repeat testing. The classification and Diagnosis of Diabetes Diabetes Care 202; 46: S19-S40. Current interpretive data was last revised 2022. Testing performed by: [address] [address] Calcium 9.5 8.5 - 10.3 mg/dL [facility] Comment:Testing performed by : [address] [address] Bilirubin, total 0.9 0.1 - 1.2 mg/dL [facility] Comment:Testing performed by : [address] [address] Protein, pl 6.5 6.5 - 8.5 g/dL [facility] Comment:Testing performed by : [address] [address] Albumin 4.5 3.5 - 5.0 g/dL [facility] Comment:Testing performed by : [address] [address] Alk phos 71 40 - 130 Units/L [facility] Comment:Testing performed by : [address] [address] ALT 9 7 - 45 Units/L [facility] Comment:Testing performed by : [address] [address] AST 19 10 - 45 Units/L [facility] Comment:Testing performed by : [address] [address] Blood 03/16/2025 8:51 AM CDT 03/16/2025 8:57 AM CDT us Celia Cabral FOREST PATHOLOGY PROFESSOR LAB BLOOD ORDERABLES Final Result [facility] [address] [facility] Department [place] [address] * CT Chest W Contrast (03/09/2025 8:55 AM CDT) Anatomical Region Laterality Modality Body N/A Computed Tomogra phy 03/11/2025 6:54 PM CDT Narrative 03/11/2025 7:00 PM CDT EXAM DESCRIPTION: CT CHEST W CONTRAST REASON FOR STUDY: 4 month lung cancer/lymphoma f/u. No complaints. TECHNIQUE: CT scan of the chest performed with intravenous contrast using helical scanning technique with dynamic intravenous contrast injection. Reconstructed coronal and sagittal MPR images reviewed. All images stored on PACS. Automated exposure control was used as a dose optimization technique for this examination. CONTRAST TYPE/DOSE: 100mL of IOVERSOL 350 MG IODINE/ML INTRAVENOUS SYRINGE injected via intravenous COMPARISON: CT chest 11/17/2024 FINDINGS: LUNGS: Patent central airways. Biapical pleural-parenchymal thickening. Irregular subpleural nodule in the left upper lobe measures 1.4 x 1.2 cm, previously 1.6 x 1.3 cm (3/32). There is increased surrounding bandlike opacities surrounding which may represent posttherapy changes. 4 mm nodule in the lateral left lower lobe (3/81), previously 3 mm. PLEURA: No effusion. No pneumothorax. MEDIASTINUM/KAILEE: No identified masses or abnormal nodes. HEART: Heart size is normal with no pericardial effusion. VASCULATURE: No thoracic aortic aneurysm. AXILLA: No adenopathy. CHEST WALL: No masses. No subcutaneous air. HARDWARE/LINES/TUBES: None. UPPER ABDOMEN: No significant abnormality. MUSCULOSKELETAL: No significant abnormality. OTHER: No other significant abnormality. IMPRESSION: 1. Slight interval decrease in size of the irregular subpleural nodule in the left upper lobe with increased surrounding bandlike opacities which may represent posttherapy changes. 2. 4 mm nodule in the lateral left lower lobe, previously 3 mm. Attention to follow-up. 3. No thoracic lymphadenopathy. THIS IS AN ELECTRONICALLY VERIFIED FINAL REPORT 03/11/2025 7:00 PM - Electronically signed by Kindra Armas M.D. FT: FT Report ID: [id number] Reading Location: [id number] Procedure Note Kindra Mcintosh MD - 03/11/2025 EXAM DESCRIPTION: CT CHEST W CONTRAST REASON FOR STUDY: 4 month lung cancer/lymphoma f/u. No complaints. TECHNIQUE: CT scan of the chest performed with intravenous contrast using helical scanning technique with dynamic intravenous contrast injection. Reconstructed coronal and sagittal MPR images reviewed. All images storedon PACS. Automated exposure control was used as a dose optimizationtechnique for this examination. CONTRAST TYPE/DOSE: 100mL of IOVERSOL 350 MG IODINE/ML INTRAVENOUS SYRINGE injected via intravenous COMPARISON: CT chest 11/17/2024 FINDINGS: LUNGS: Patent central airways. Biapical pleural-parenchymal thickening. Irregular subpleural nodule in the left upper lobe measures1.4 x 1.2 cm, previously 1.6 x 1.3 cm (3/32). There is increased surrounding bandlike opacities surrounding which may represent posttherapy changes. 4mm nodule in the lateral left lower lobe (3/81), previously 3 mm. PLEURA: No effusion. No pneumothorax. MEDIASTINUM/KAILEE: No identified masses or abnormal nodes. HEART: Heart size is normal with no pericardial effusion. VASCULATURE: No thoracic aortic aneurysm. AXILLA: No adenopathy. CHEST WALL: No masses. No subcutaneous air. HARDWARE/LINES/TUBES: None. UPPER ABDOMEN: No significant abnormality. MUSCULOSKELETAL: No significant abnormality. OTHER: No other significant abnormality. IMPRESSION: 1. Slight interval decrease in size of the irregular subpleural nodulein the left upper lobe with increased surrounding bandlike opacities whichmay represent posttherapy changes. 2. 4 mm nodule in the lateral left lower lobe, previously 3 mm.Attention to follow-up. 3. No thoracic lymphadenopathy. THIS IS AN ELECTRONICALLY VERIFIED FINAL REPORT 03/11/2025 7:00 PM - Electronically signed by Kindra Armas M.D. FT: FT Report ID: [id number] Reading Location: [id number] us Celia Cabral NP IMG CT PROCEDURES Fi nal Result * POCT creatinine for contrast evaluation (03/09/2025 8:54 AM CDT) Creatinine POC 0.80 0.60 - 1.10 mg/dL Comment:Testing performed by : [facility], [address] [place] [address]., [address] Blood 03/09/2025 8:54 AM CDT 03/09/2025 8:54 AM CDT Walt Tadeo DO POINT OF CARE TEST ORDERABLE S Final Result Performing Organization Address [facility] Co de Phone Number [facility] [address] [place] [address] * eGFR (01/19/2025 8:35 AM CDT) eGFR 86 >=60 mL/min/1. 73 m2 Comment: Interpretive Data Reference Interval Normal >/= 90 mL/min/1.73m2 Mildly decreased* 60 - 89 mL/min/1.73m2 Mildly to moderately decreased 45 - 59 mL/min/1.73m2 Moderately to severely decreased 30 - 44 mL/min/1.73m2 Severely decreased 15 - 29 mL/min/1.73m2 Kidney Failure < 15 mL/min/1.73m2 *Relative to young adult level Estimated glomerular filtration rate is determined by the 2020 CKD-EPI equation recommended by the National Kidney Foundation (A Unifying Approach to GFR Estimation: Recommendations of the NKF-ASK Task Force on Reassessing the Inclusion of Race in Diagnosing Kidney Disease, JASN 2020). The CKD-EPI equation should not be used for patients with unstable renal function and has not been validated in children and those over 70. Current interpretive data was last reviewed 2021. Testing performed by: [facility], [address] [place] [address]., [address] Blood 01/19/2025 8:35 AM CDT 01/19/2025 8:38 AM CDT us Walt Tadeo DO LAB BLOOD ORDERABLES Final R esult Performing Organization Address City/[facility]/ZIP Co de Phone Number [facility] [address] [place] [address] * Differential, auto (01/19/2025 8:35 AM CDT) Neutrophil abs 3.39 1.50 - 6.50 K/cumm Comment:Testing performed by : [facility], [address] [place] [address], [place]., [address] Imm gran abs 0.02 0.00 - 0.10 K/cumm [facility] Comment:Testing performed by : [facility], [address] [place] [address], [place]., [address] Lymphocyte abs 0.89 0.80 - 3.30 K/cumm [facility] Comment:Testing performed by : [address], [place]., [address] Monocyte abs 0.36 0.20 - 0.80 K/cumm [facility] Comment:Testing performed by : [address], [place]., [address] Eosinophil abs 0.07 0.00 - 0.50 K/cumm [facility] Comment:Testing performed by : [address], [place]., [address] Basophil abs 0.02 0.00 - 0.10 K/cumm [facility] Comment:Testing performed by : [address] [address] Neutrophil pct 71.4 % [facility] Comment: Interpretive Data Percent cell count reference ranges are not reported, since discordance with absolute values may lead to misinterpretation of CBC data. Current Interpretive Data was last revised on 2017. Testing performed by: [address] [address] Imm gran pct 0.4 % [facility] Comment: Interpretive Data Percent cell count reference ranges are not reported, since discordance with absolute values may lead to misinterpretation of CBC data. Current Interpretive Data was last revised on 2017. Testing performed by: [address] [address] Lymphocyte pct 18.7 % [facility] Comment: Interpretive Data Percent cell count reference ranges are not reported, since discordance with absolute values may lead to misinterpretation of CBC data. Current Interpretive Data was last revised on 2017. Testing performed by: [address] [address] Monocyte pct 7.6 % [facility] Comment: Interpretive Data Percent cell count reference ranges are not reported, since discordance with absolute values may lead to misinterpretation of CBC data. Current Interpretive Data was last revised on 2017. Testing performed by: [address] [address] Eosinophil pct 1.5 % [facility] Comment: Interpretive Data Percent cell count reference ranges are not reported, since discordance with absolute values may lead to misinterpretation of CBC data. Current Interpretive Data was last revised on 2017. Testing performed by: [address] [address] Basophil pct 0.4 % [facility] Comment: Interpretive Data Percent cell count reference ranges are not reported, since discordance with absolute values may lead to misinterpretation of CBC data. Current Interpretive Data was last revised on 2017. Testing performed by: [address] [address] Blood 01/19/2025 8:35 AM CDT 01/19/2025 8:38 AM CDT us Walt Tadeo DO LAB BLOOD ORDERABLES Final R esult [facility] [address] [facility] [place] [address] * CBC with auto differential (01/19/2025 8:35 AM CDT) WBC 4.75 3.80 - 9.90 K/cumm Comment:Testing performed by : [address] [address] Hgb 12.7 11.9 - 15.5 g/dL [facility] Comment:Testing performed by : [address] [address] Hct 37.6 35.6 - 45.5 % [facility] Comment:Testing performed by : [address] [address] Plt 160 150 - 400 K/cumm [facility] Comment:Testing performed by : [address] [address] MPV 9.3 9.1 - 12.3 fL [facility] LEIGH Comment:Testing performed by : [facility], [address] [place] [address]., [address] RBC 4.07 3.90 - 5.20 M/cumm [facility] LEIGH Comment:Testing performed by : [address] [address] MCV 92.4 81.3 - 96.4 fL [facility] Comment:Testing performed by : [address] [address] MCH 31.2 27.1 - 33.3 pg [facility] Comment:Testing performed by : [address] [address] MCHC 33.8 32.3 - 35.7 g/dL [facility] Comment:Testing performed by : [address] [address] RDW CV 12.5 11.1 - 14.9 % [facility] Comment:Testing performed by : [address] [address] RDW SD 42.2 35.7 - 48.1 fL [facility] Comment:Testing performed by : [address] [address] NRBC abs 0.00 0.00 - 0.01 K/cumm [facility] Comment:Testing performed by : [address] [address] ANC Prelim 3.39 1.50 - 6.50 K/cumm [facility] Comment: Interpretive Data The rapid ANC is a preliminary automated count and may vary from the final ANC (Neut Abs) reported in the WBC differential that follows. Current interpretive data was last revised 2024. Testing performed by: [address] [address] Blood 01/19/2025 8:35 AM CDT 01/19/2025 8:38 AM CDT Walt Tadeo DO LAB BLOOD ORDERABLES Final R esult [facility] Department [place] [address] * Lactate dehydrogenase (LD) (01/19/2025 8:35 AM CDT) [facility] Lactate dehydrogenase (LDH) 177 100 - 250 Units/L Comment:Testing performed by : [address] [address] Blood 01/19/2025 8:35 AM CDT 01/19/2025 8:38 AM CDT us Walt Tadeo DO LAB BLOOD ORDERABLES Final R esult [facility] [address] [place] [address] * Comprehensive metabolic panel (01/19/2025 8:35 AM CDT) [facility] Sodium 143 135 - 145 mmol/L Comment:Testing performed by : [address] [address] Potassium, pl 3.7 3.3 - 4.9 mmol/L [facility] Comment:Testing performed by : [address] [address] Chloride 104 97 - 110 mmol/L [facility] Comment:Testing performed by : [address] [address] CO2 27 22 - 32 mmol/L [facility] Comment:Testing performed by : [address] [address] Anion gap 12 2 - 15 mmol/L [facility] Comment:Testing performed by : [address] [address] BUN 9 6 - 25 mg/dL [facility] Comment:Testing performed by : [address] [address] Creatinine 0.70 0.60 - 1.10 mg/dL [facility] Comment:Testing performed by : [address] [address] Glucose 100 70 - 199 mg/dL [facility] Comment: Interpretive Data Fasting glucose >/= 126 mg/dl is diagnostic for diabetes. Fasting is defined as no caloric intake for at least 8 hours. Fasting glucose between 100 mg/dl to 125 mg/dl is diagnostic of prediabetes. In a patient with classic symptoms of hyperglycemia or hyperglycemic crisis, a random glucose >/= 200 mg/dl is diagnostic for diabetes. In the absence of unequivocal hyperglycemia, results should be confirmed by repeat testing. The classification and Diagnosis of Diabetes Diabetes Care 202; 46: S19-S40. Current interpretive data was last revised 2022. Testing performed by: [address] [address] Calcium 9.4 8.5 - 10.3 mg/dL [facility] Comment:Testing performed by : [address] [address] Bilirubin, total 0.9 0.1 - 1.2 mg/dL [facility] Comment:Testing performed by : [address] [address] Protein, pl 6.6 6.5 - 8.5 g/dL [facility] Comment:Testing performed by : [address] [address] Albumin 4.4 3.5 - 5.0 g/dL [facility] Comment:Testing performed by : [address] [address] Alk phos 79 40 - 130 Units/L [facility] Comment:Testing performed by : [address] [address] ALT 10 7 - 45 Units/L [facility] Comment:Testing performed by : [address] [address] AST 18 10 - 45 Units/L [facility] Comment:Testing performed by : [address] [address] Blood 01/19/2025 8:35 AM CDT 01/19/2025 8:38 AM CDT us Walt Tadeo DO LAB BLOOD ORDERABLES Final R esult [facility] [address] 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 PET-CT for restaging and subsequent treatment strategy. RADIOPHARMACEUTICAL: 9.2 mCi F-18 Fluorodeoxyglucose (FDG) via a right hand IV site. TECHNIQUE: The patient's fasting blood glucose level, measured by glucometer before injection of FDG, was 85 mg/dL. After intravenous administration of FDG, noncontrast CT images were obtained for attenuation correction and for fusion with emission PET images to allow for anatomical localization of PET findings. Emission PET images were then obtained. The area imaged spanned the region from the skull base to the thighs. The uptake time was approximately 64 minutes. SUV max was normalized to body weight. COMPARISON: PET-CT 07/29/2024. thyroid ultrasound 08/10/2024. Chest CT 11/17/2024. FINDINGS: For reference, a region of interest of the ascending thoracic aorta has a maximal SUV of 2.2 . For reference, a region of interest of the right hepatic lobe of the liver has a maximal SUV of 3.4. Head: Normal FDG uptake is seen in the included portion of the brain. Neck: There is the metabolically active right thyroid nodule similar to the prior study 1.5 cm maximal SUV 6.5, previously maximal SUV 8.8. Chest: There are two areas of opacity with intense activity in the left upper lobe. The more anterior component corresponds to the location of the previous hypermetabolic nodule, measures approximately 1.8 x 1.7 cm with a maximal SUV 6.4, previously 1.7 x 1.4 cm with a maximal SUV of 5.7 as remeasured. More posterior semisolid opacity with air bronchograms is new from the prior PET-CT and new from the chest CT from 11/17/2024, this is 3.6 x 3.5 cm maximal SUV 6.1. No other hypermetabolic nodules or masses. No hypermetabolic thoracic lymphadenopathy. There is the subpleural nodule left lower lobe 0.3 cm below PET resolution. Heart size is normal. There is no pleural or pericardial effusion. Abdomen and Pelvis: Liver and spleen demonstrate normal activity without focal abnormal FDG uptake. Gallbladder is unremarkable. Pancreas and both adrenal glands demonstrate normal FDG activity. Normal excretion of FDG from the kidneys with expected accumulation of radiotracer in the urinary bladder. There are no hypermetabolic lymph nodes in the abdomen and pelvis. Physiologic bowel activity is present. Surgical clips are seen in the left inguinal region. Bones: Bone windows demonstrate no hypermetabolic acute or aggressive osseous lesions. There is an area of ground-sclerosis posterior right iliac bone which shows no abnormal uptake. There is reversal of the normal cervical lordosis with degenerative change C4-5. IMPRESSION: 1. Two areas of opacity in the left upper lobe, the more anterior component corresponds to the location of the previous hypermetabolic nodule and measures slightly larger with slight increased activity. Although this could be evolving post treatment change, persistently metabolically viable tumor can not be excluded. 2. More posterior co left upper lobe masslike opacity component is new from the prior PET-CT and new from the chest CT from 11/17/2024, more likely either postradiation change or a new infectious/inflammatory process. Short-term follow-up chest CT recommended. 3. No evidence of FDG avid thoracic lymphadenopathy or distant metastatic disease. 4. Persistent metabolically active right thyroid nodule. See thyroid ultrasound 08/10/2024 with regard to TI-RADS recommendation for tissue sampling. THIS IS AN ELECTRONICALLY VERIFIED FINAL REPORT 01/14/2025 9:55 AM - Electronically signed by Jaime Ramírez M.D. 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 PET-CT for restaging and subsequent treatment strategy. RADIOPHARMACEUTICAL: 9.2 mCi F-18 Fluorodeoxyglucose (FDG) via a righthand IV site. TECHNIQUE: The patient's fasting blood glucose level, measured byglucometer before injection of FDG, was 85 mg/dL. After intravenous administrationof FDG, noncontrast CT images were obtained for attenuation correction andfor fusion with emission PET images to allow for anatomical localization ofPET findings. Emission PET images were then obtained. The area imaged spannedthe region from the skull base to the thighs. The uptake time wasapproximately 64 minutes. SUV max was normalized to body weight. COMPARISON: PET-CT 07/29/2024. thyroid ultrasound 08/10/2024. Chest CT 11/17/2024. FINDINGS: For reference, a region of interest of the ascending thoracicaorta has a maximal SUV of 2.2 . For reference, a region of interest of theright hepatic lobe of the liver has a maximal SUV of 3.4. Head: Normal FDG uptake is seen in the included portion of the brain. Neck: There is the metabolically active right thyroid nodule similar tothe prior study 1.5 cm maximal SUV 6.5, previously maximal SUV 8.8. Chest: There are two areas of opacity with intense activity in the leftupper lobe. The more anterior component corresponds to the location of theprevious hypermetabolic nodule, measures approximately 1.8 x 1.7 cm with a maximalSUV 6.4, previously 1.7 x 1.4 cm with a maximal SUV of 5.7 as remeasured.More posterior semisolid opacity with air bronchograms is new from the priorPET-CT and new from the chest CT from 11/17/2024, this is 3.6 x 3.5 cm maximalSUV 6.1. No other hypermetabolic nodules or masses. No hypermetabolicthoracic lymphadenopathy. There is the subpleural nodule left lower lobe 0.3 cmbelow PET resolution. Heart size is normal. There is no pleural or pericardial effusion. Abdomen and Pelvis: Liver and spleen demonstrate normal activity withoutfocal abnormal FDG uptake. Gallbladder is unremarkable. Pancreas and bothadrenal glands demonstrate normal FDG activity. Normal excretion of FDG from the kidneys with expected accumulation of radiotracer in the urinary bladder. There are no hypermetabolic lymph nodes in the abdomen and pelvis.Physiologic bowel activity is present. Surgical clips are seen in the left inguinal region. Bones: Bone windows demonstrate no hypermetabolic acute or aggressiveosseous lesions. There is an area of ground-sclerosis posterior right iliac bone which shows no abnormal uptake. There is reversal of the normal cervical lordosis with degenerative change C4-5. IMPRESSION: 1. Two areas of opacity in the left upper lobe, the more anteriorcomponent corresponds to the location of the previous hypermetabolic nodule andmeasures slightly larger with slight increased activity. Although this could be evolving post treatment change, persistently metabolically viable tumorcan not be excluded. 2. More posterior co left upper lobe masslike opacity component is newfrom the prior PET-CT and new from the chest CT from 11/17/2024, more likelyeither postradiation change or a new infectious/inflammatory process. Short-term follow-up chest CT recommended. 3. No evidence of FDG avid thoracic lymphadenopathy or distantmetastatic disease. 4. Persistent metabolically active right thyroid nodule. See thyroid ultrasound 08/10/2024 with regard to TI-RADS recommendation for tissue sampling. THIS IS AN ELECTRONICALLY VERIFIED FINAL REPORT 01/14/2025 9:55 AM - Electronically signed by Jaime Ramírez M.D. CH: FOREIGN Report ID: [id number] Reading Location: [id number] us Walt Tadeo DO IMG PET PROCEDURES Final Res ult * POCT glucose (01/14/2025 7:57 AM CDT) Glucose, POC 85 70 - 199 mg/dL Comment:Testing performed by : [facility], [address] [place] [address], [place]., [address] Blood 01/14/2025 7:57 AM CDT 01/14/2025 7:57 AM CDT Walt Tadeo DO LAB POCT ORDERABLES - DEVICE Final Result [facility] [address] [facility] [place] [address] from Last 3 Months Insurance MEDICARE [employer]AGE [facility] Address: [address] [address] [place] [address] [employer]ICARE [employer]AGE [facility] Address: [address] [address] [place] [address] Care Teams Commercial Green Retrofit Architect Relationship Specialty Start Date End Date Benito Olsen MD [address] [place] [address] [place] [address] PCP - General Internal Medicine 02/09/24 Walt Tadeo DO [address] [address] Medical Oncologist/Bonding And Composite Fabricator Hematology and Oncology 12/25/17 Chapo An MD [address] [address] Radiation Oncologist Radiation Oncology 01/28/24
--- OUTSIDE RECORDS SUMMARY | 2025-04-05 14:46 | XMS_ITS | Clinical Summary ---
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
--- OUTSIDE RECORDS SUMMARY | 2025-04-05 14:46 | XMS_ITS | Encounter Summary ---
Author Organization [employer] Address 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
--- OUTSIDE RECORDS SUMMARY | 2025-04-05 14:46 | XMS_ITS | Encounter Summary ---
Author Organization [facility] Address [address] [place] [address] Phone Care Team Providers Care Weigh Box Tender Name Role Phone Benito Olsen MD Primary Care Provider [phone] Walt Tadeo DO Unavailable [phone] Chapo An MD Unavailable [phone] Benito Olsen MD Primary Care Provider Encounter Details Date Type Department Care Team (Late st Contact Info) Description 02/25/2023 Documentation [facility] Medicine Physicians [facility] Oncology [address] [address] Celia Cabral, THOMAS [address] [address] Social History Tobacco Use Types Packs/Day Years Used Date Smoking Tobacco: Never Smokeless Tobacco: Never Alcohol Use Standard Drinks/Week Comments No 0 (1 standard drink = 0.6 oz pur e alcohol) Comments Unknown Sex and Gender Information Value Date Recorded Sex Assigned at Not on file 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 Gender Identity Not on file Sexual Orientation Not on file documented as of this encounter Plan of Treatment Not on file documented as of this encounter Visit Diagnoses Not on filedocumented in this encounter Care Teams Weigh Box Tender Relationship Specialty Start Date End Date Benito Olsen MD PCP - General 08/29/17 02/08/24 Benito Olsen MD [address] [facility] [place] [address] PCP - General Internal Medicine 02/09/24 Walt Tadeo DO [employer] [id number] Medical Oncologist/Review Scheduling Coordinator Hematology and Oncology 12/25/17 Chapo An MD [address] [id number] Radiation Oncologist Radiation Oncology 01/28/24 documented as of this encounter
--- NOTE | 2025-04-05 14:51 | PM.IMHP ---
H&P: HPI History of Present Illness Date/Time: 04/05/25 14:51 Chief Complaint: Right Sided Weakness Narrative: 85 y/o F with PMH of Hodgkin's lymphoma on bimonthly immunotherapy and lung cancer s/p radiation x2. From home with her daughter for further evaluation of right-sided deficits. She reports last known well at 12:15 p.m. today, 04/05. She developed a right facial droop, right arm weakness, right facial numbness, dizziness, balance disturbance, and right hand numbness shortly after 12:15 p.m.. She reports her symptoms persisted past arrival to the emergency department, however they began to lessen shortly after her arrival. She reports she continued to have some right hand numbness around the time of her head CT which was performed at 1:17 p.m. They have since completely resolved. She has no previous history of CVA or TIA. She reports her only recent illness was shingles to her left breast which was noted around March 13. She currently denies any dysarthria, facial numbness, oral numbness, extremity numbness, extremity weakness, dizziness, word-finding difficulty, or vision changes. She reports a past medical history significant for Hodgkin's lymphoma for which she receives by monthly injections, a CT for monitoring Q8 weeks, and a PET scan Q6 months through [facility]. Patient has also recently been treated for lung cancer, previously received radiation treatment x2 to her left upper lung and is now currently being monitored. Initial VS at presentation: 97.8? F, HR 93, R 13, 161/80, and 100% on RA. ED workup showed: No leukocytosis, no anemia, normal coags, potassium 3.1, creatinine 0.69 and GFR >60, glucose 114, initial troponin negative, and UA unremarkable. Head CT showed a normal aging brain with no acute intracranial process. CXR showed left upper lobe pneumonia, lymphomatous involvement of the left upper lobe not excluded. Head/neck CTA showed 0% stenosis of the right and left carotid bulbs, unremarkable cerebral CT of angiogram, band like consolidation left upper lobe in favor of atelectasis over pneumonia, and an indeterminate 1.5 cm right thyroid nodule. Review of Systems Review of Systems: All systems reviewed & are unremarkable except as noted in HPI and below [facility] Past Medical History Medical History (Updated 04/05/25 @ 16:55 by Ivania Tabor APRN) History of shingles Lung cancer Dysphagia Globus sensation Basal cell carcinoma of foot Hodgkins lymphoma Kidney stone Breast mass Abnormal breast biopsy Infertility, tubal origin Surgical History Surgical History History of hysterectomy Hx of fusion of cervical spine H/O lymph node biopsy H/O neck surgery Family History Family History Sibling Hypertension Family history of elevated blood lipids Family history of malignant neoplasm Family history of kidney disease Family history of malignant neoplasm of ovary Mother Family history of heart disease in male family member before age 55 Social History Social History Smoking status: Never smoker Alcohol intake: never Substance use: never Substance use type: does not use Spiritual care concerns: No Meds Home Medications and Allergies Home Medications ?Medication ?Instructions ?Recorded ?Confirmed ?Type rituximab 10 mg/mL 100 mg IV .[id number] 04/05/25 04/05/25 History concentrate,intravenous (Rituxan) Allergies Allergy/AdvReac Type Severity Reaction Status Date / Time Sulfa (Sulfonamide Allergy Mild Rash Verified 04/05/25 13:40 Antibiotics) codeine AdvReac Severe NAUSEA AND Verified 04/05/25 13:40 VOMITING Vital Signs Vital Signs - 24 hr 04/05/25 13:30 04/05/25 13:41 04/05/25 13:51 Temperature 97.8 F 97.8 F Pulse Rate 93 96 93 Respiratory Rate 13 16 16 Blood Pressure 161/80 H 158/76 H 158/76 H Pulse Oximetry 100 100 Oxygen Delivery Room Air Exam Const: General: comfortable and no acute distress Other: , female, elderly, nontoxic appearance HENMT: Face/Nose/Sinus: Normal nares present Mouth: Yes moist mucous membranes Resp: Effort & Inspection: normal respiratory effort Auscultation: clear to auscultation bilaterally Cardio: Rate: regular rate Rhythm: regular rhythm Other: S1-S2 present without murmur, rub, ectopy GI: Other: Abdomen soft, nondistended, nontender. Normoactive bowel sounds in all quadrants. Skin: General skin exam: normal color Wounds: no wounds Other: Rash with circular open wounds, non crusted, non blistering following at the left T4 region dermatome. Neuro: Speech: normal speech Motor exam (neuro): 5/5 motor strength present throughout Sensory Exam: normal sensation Other: A&O x4, NIHSS 0 Extrem: General: normal to inspection Psych: Mental Status: mental status grossly normal Affect: normal affect Other: Good insight and judgment, very pleasant H&P: Results Labs Labs: Short CBC 04/05/25 Range/Units 13:34 WBC 5.1 (4.5-10.0) K/mm3 Hgb 13.0 (12.0-15.0) g/dL Hct 38.9 (37.0-47.0) % Plt Count 156 (150-375) k/mm3 BMP 04/05/25 13:34 Sodium 137 Potassium 3.1 L Chloride 100 Carbon Dioxide 27 BUN 14 Creatinine 0.69 L Glucose 114 H Calcium 9.5 Cardiac Enzymes 04/05/25 Range/Units 13:34 Troponin I < 0.012 (0.000-0.034) ng/mL Liver Function 04/05/25 Range/Units 13:34 Total Bilirubin 0.8 (0.2-1.3) mg/dL AST 29 (14-36) U/L ALT 23 (6-35) U/L Alkaline Phosphatase 65 (38-126) U/L Albumin 4.7 (3.5-5.1) g/dL Assessment and Plan Assessment and plan (1) Neurological deficit, transient: Code(s): R29.818 - Other symptoms and signs involving the nervous system Status: Acute Assessment and Plan: New deficits of right facial droop, right hand weakness and numbness, right sided oral numbness, dizziness, balance disturbance noted shortly after 12:15 p.m. on 04/05. Total resolution sometime after 1:[address] and head/neck CTA performed on 04/05 showed no large vessel occlusion or acute CVA. - admission for observation and telemetry - not candidate for thrombolytics or thrombectomy due to resolution of symptoms and no large vessel occlusion identified on imaging - CXR showed a left upper lobe pneumonia, Lymphomatous involvement of the left upper lobe not excluded. >> patient has history of lung cancer to the left upper lobe for which she has received radiation. Head/neck CTA in favor of atelectasis versus pneumonia. Patient is currently asymptomatic. - neurology consulted - brain MRI w/wo ordered - echo w/Bubble ordered - neuro checks Q4 - consider PT/OT/ST if his CVA seen on MRI, will hold off on consulting their services given patient's symptoms have resolved - monitor daily labs, check lipid panel and A1C - start Atorvastatin 40 mg PO, Plavix 75 mg PO, ASA 81 mg - consider 30 day event monitoring at discharge if abnormality noted on telemetry monitoring (2) Shingles: Qualifiers: Herpes zoster complications: without complications Qualified Code(s): B02.9 - Zoster without complications Code(s): B02.9 - Zoster without complications Status: Acute Assessment and Plan: Patient noted a rash to her left breast fold that extends to her left back, following near the T4 dermatome. First noted rash around March 13. Rash is currently open, non crusted, non blistering. She has a previous history of shingles when she was in the 3rd grade to the left side of her face. - contact precautions - monitor (3) Thyroid nodule: Code(s): E04.1 - Nontoxic single thyroid nodule Status: Acute Assessment and Plan: Incidental, indeterminate 1.5 cm right thyroid nodule noted on head/neck CTA from 04/05. Will need follow-up thyroid ultrasound outpatient. (4) Lung cancer: Qualifiers: Laterality: left Lung location: upper lobe of lung Qualified Code(s): C34.12 - Malignant neoplasm of upper lobe, left bronchus or lung Code(s): C34.90 - Malignant neoplasm of unspecified part of unspecified bronchus or lung Status: Chronic Assessment and Plan: Patient has history of lung cancer to the left upper lung. S/p radiation treatment x2 through [facility]. Currently being observed. Imaging in favor of atelectasis/lymphomatous. No current systemic symptoms concerning for pneumonia. No leukocytosis noted. (5) Hodgkins lymphoma: Qualifiers: Hodgkin lymphoma type: unspecified type Lymphoma site: unspecified region Qualified Code(s): C81.90 - Hodgkin lymphoma, unspecified, unspecified site Code(s): C81.90 - Hodgkin lymphoma, unspecified, unspecified site Status: Chronic Assessment and Plan: History of lymphoma. Receives bimonthly infusions. Has CT of the chest to monitor progression every 8 weeks and a PET scan every 6 months. Receives care through [facility]. Plan Diet: Heart healthy GI Prophylaxis: N/a DVT Prophylaxis: SCDs IV fluids: None Lines/Tubes: Peripheral IV Code Status: Full code Quality VTE Prophylaxis VTE prophylaxis: mechanical ordered Hospitalist MIPS Advance Care Plan I have confirmed that the patient's Advanced Care Plan is present, code status is documented, or surrogate decision maker is listed in patient medical record.: Yes Medication Reconciliation I have utilized all available resources to obtain, update and review the patients current medications (includes all prescriptions, OTC, herbals, cannabis, and nutritional supplements).: Yes
--- NOTE | 2025-04-05 15:02 | PC.NURSE ---
Pharmacy only sent one aspirin instead of two as written in the order. Pharmacy notified.
[2025-04-05] MEDS: cefTRIAXone 1 GM in SODIUM CHLORIDE 0.9% IV 50 ML 100 ML IVPB (15:06)
[2025-04-05] MEDS: CLOPIDOGREL BISULFATE 300 MG TABLET PO (15:07)
[2025-04-05] MEDS: ASPIRIN 81 MG ENTERIC TABLET 162 MG PO (15:07)
[2025-04-05 15:43] LABS: Add Urine Microscopic? NO; Appearance Urine Clear (Clear); Glucose Urine UA Negative (Negative); Leukocyte Esterase Ur Negative LEU/UL (Negative); Nitrate Urine Negative (Negative); Specific Grav Ur 1.018 (1.001-1.035)
--- OUTSIDE RECORDS SUMMARY | 2025-04-05 16:27 | XMS_ITS | Clinical Summary ---
Author Organization [facility] Address [address] [place] [address] Care Team Providers Care Qa Software Test Engineer Name Role Phone Unavailable Primary Care Provider [...]
--- OUTSIDE RECORDS SUMMARY | 2025-04-05 16:27 | XMS_ITS | Encounter Summary ---
Author Organization [facility] Address [address] [place] [address] Phone Care Team Providers Care Mechatronics Engineer Name Role Phone Benito Olsen MD Primary Care Provider [phone] Walt Tadeo DO Unavailable [phone] Chapo An MD Unavailable [phone] Benito Olsen MD Primary Care Provider Encounter Details Date Type Department Care Team (Late st Contact Info) Description 02/25/2023 Documentation [facility] Medicine Physicians [facility] Oncology [address] [address] Celia Cabral, THOMAS [address] [address] Social History Tobacco Use Types Packs/Day Years Used Date Smoking Tobacco: Never Smokeless Tobacco: Never Alcohol Use Standard Drinks/Week Comments No 0 (1 standard drink = 0.6 oz pur e alcohol) Comments Unknown Sex and Gender Information Value Date Recorded Sex Assigned at Not on file 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 Gender Identity Not on file Sexual Orientation Not on file documented as of this encounter Plan of Treatment Not on file documented as of this encounter Visit Diagnoses Not on filedocumented in this encounter Care Teams Mechatronics Engineer Relationship Specialty Start Date End Date Benito Olsen MD PCP - General 08/29/17 02/08/24 Benito Olsen MD [address] [facility] DEPT [place] [address] PCP - General Internal Medicine 02/09/24 Walt Tadeo DO [facility] [phone] Medical Oncologist/Separator Inserter Hematology and Oncology 12/25/17 Chapo An MD [address] [id number] Radiation Oncologist Radiation Oncology 01/28/24 documented as of this encounter
--- OUTSIDE RECORDS SUMMARY | 2025-04-05 16:28 | XMS_ITS | Encounter Summary ---
Author Organization [facility] [employer] Address [address] [place] [address] Care Team Providers Care Bushel Worker Name Role Phone Unavailable Primary Care Provider Unavailabl e Encounter Details Date Type Department Care Team (Late st Contact Info) Description 12/21/1998 Outpatient Historical [facility] MRI DEPT Xi Burgos MD [address] [facility] [place] [address] [place] [address] Unspecified symptom associated with female genital organs (Primary Dx) Social History Tobacco Use Types Packs/Day Years Used Date Smoking Tobacco: Never Assessed Comments Unknown Sex and Gender Information Value Date Recorded Sex Assigned at Not on file Legal Sex Female 3:54 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
--- OUTSIDE RECORDS SUMMARY | 2025-04-05 16:28 | XMS_ITS | Clinical Summary ---
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
--- OUTSIDE RECORDS SUMMARY | 2025-04-05 16:28 | XMS_ITS ---
Author Organization [facility] Address [address] [place] [address] Care Team Providers Care Binder Selector Name Role Phone Walt Tadeo DO Unavailable [phone] Chapo An MD Unavailable [phone] Benito Olsen MD Primary Care Provider [phone] Active Problems Problem Noted Date Diagnosed Date [...] Tadeo DO Linked Problems [facility] Treatment Medications No medications scheduled. Past [...]
--- OUTSIDE RECORDS SUMMARY | 2025-04-05 16:28 | XMS_ITS | Encounter Summary ---
Author Organization [employer] Address 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
--- OUTSIDE RECORDS SUMMARY | 2025-04-05 16:28 | XMS_ITS | Clinical Summary ---
Author Organization [facility] Address [address] [place] [address] Care Team Providers Care Call Circuit Worker Name Role Phone Walt Tadeo DO Unavailable [phone] Chapo An MD Unavailable [phone] Benito Olsen MD Primary Care Provider [phone] Allergies Active Allergy Reactions Criticality Noted Date [...] Team Description 03/17/2025 9:00 AM CDT Telemedicine [facility] Medical Office Building 2 Radiation Oncology [address] [place] [address] Maryuri Lorenz, PA Malignant neoplasm of upper lobe of left lung (HCC) (Primary Dx); Follicular lymphoma grade II of lymph nodes of multiple sites (HCC); Personal history of radiation therapy 03/16/2025 10:00 AM CDT Infusion [facility] at [address] [phone] Follicular lymphoma grade II of lymph nodes of multiple sites (HCC) (Primary Dx); Encounter for person encountering health services 03/16/2025 9:30 AM CDT Office Visit [facility] [address] [place] [phone] Walt Tadeo DO Follicular lymphoma grade II of lymph nodes of multiple sites (HCC) (Primary Dx) 03/16/2025 9:00 AM CDT Lab [facility] at [address] [address] Follicular lymphoma grade II of lymph nodes of multiple sites (HCC); Vitamin D deficiency 03/09/2025 8:37 AM CDT - 03/09/2025 11:59 PM CDT Hospital Encounter [facility] Medical Office Building [address] [place] [address] Follicular lymphoma grade II of lymph nodes of multiple sites (HCC) Discharge Disposition: Discharge to home or self care 02/15/2025 Telephone [facility] [address] [place] [phone] Marcia Gunn, INTERPERSONAL COMMUNICATIONS PROFESSOR 01/19/2025 9:30 AM CDT Infusion [address] [phone] Follicular lymphoma grade II of lymph nodes of multiple sites (HCC) (Primary Dx); Encounter for person encountering health services 01/19/2025 9:00 AM CDT Office Visit [facility] [address] [place] [phone] Walt Tadeo DO Follicular lymphoma grade II of lymph nodes of multiple sites (HCC) (Primary Dx); Vitamin D deficiency 01/19/2025 8:30 AM CDT Lab [facility] at [address] [address] Follicular lymphoma grade II of lymph nodes of multiple sites (HCC) 01/14/2025 7:48 AM CDT - 01/14/2025 11:59 PM CDT Hospital Encounter [facility] Medical Office Building [address] [place] [address] Follicular lymphoma grade II of lymph nodes [...] on file 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 Testing performed by: [address] [address] Blood 03/16/2025 8:51 AM CDT 03/16/2025 8:57 AM CDT us Celia Cabral NP LAB BLOOD ORDERABLES Final Result [facility] Department [place] [address] * Differential, auto (03/16/2025 8:51 AM CDT) Neutrophil abs 3.70 1.50 - 6.50 K/cumm Comment:Testing performed by : [address] [address] Imm gran abs 0.02 0.00 - 0.10 K/cumm [facility] Comment:Testing performed by : [address] [address] Lymphocyte abs 0.87 0.80 - 3.30 K/cumm [facility] Comment:Testing performed by : [address] [address] Monocyte abs 0.49 0.20 - 0.80 K/cumm [facility] Comment:Testing performed by : [address] [address] Eosinophil abs 0.08 0.00 - 0.50 K/cumm [facility] Comment:Testing performed by : [address] [address] Basophil abs 0.02 0.00 - 0.10 K/cumm [facility] Comment:Testing performed by : [address] [address] Neutrophil pct 71.4 % [facility] Comment: Interpretive Data Percent cell count reference ranges are not reported, since discordance with absolute values may lead to misinterpretation of CBC data. Current Interpretive Data was last revised on 2017. Testing performed by: [address] [address] Imm gran pct 0.4 % [facility] Comment: Interpretive Data Percent cell count reference ranges are not reported, since discordance with absolute values may lead to misinterpretation of CBC data. Current Interpretive Data was last revised on 2017. Testing performed by: [address] [address] Lymphocyte pct 16.8 % [facility] Comment: Interpretive Data Percent cell count reference ranges are not reported, since discordance with absolute values may lead to misinterpretation of CBC data. Current Interpretive Data was last revised on 2017. Testing performed by: [address] [address] Monocyte pct 9.5 % [facility] Comment: Interpretive Data Percent cell count reference ranges are not reported, since discordance with absolute values may lead to misinterpretation of CBC data. Current Interpretive Data was last revised on 2017. Testing performed by: [address] [address] Eosinophil pct 1.5 % [facility] Comment: Interpretive Data Percent cell count reference ranges are not reported, since discordance with absolute values may lead to misinterpretation of CBC data. Current Interpretive Data was last revised on 2017. Testing performed by: [address] [address] Basophil pct 0.4 % [facility] Comment: Interpretive Data Percent cell count reference ranges are not reported, since discordance with absolute values may lead to misinterpretation of CBC data. Current Interpretive Data was last revised on 2017. Testing performed by: [address] [address] Blood 03/16/2025 8:51 AM CDT 03/16/2025 8:57 AM CDT Celia Cabral COMPUTER SCIENCE INTERN LAB BLOOD ORDERABLES Final Result [facility] [address] [facility] Department [place] [address] * (ABNORMAL) CBC with auto differential (03/16/2025 8:51 AM CDT) WBC 5.18 3.80 - 9.90 K/cumm Comment:Testing performed by : [address] [address] Hgb 13.0 11.9 - 15.5 g/dL [facility] Comment:Testing performed by : [address] [address] Hct 38.0 35.6 - 45.5 % [facility] Comment:Testing performed by : [address] [address] Plt 136(L) 150 - 400 K/cumm [facility] Comment:Testing performed by : [address] [address] MPV 9.5 9.1 - 12.3 fL [facility] Comment:Testing performed by : [address] [address] RBC 4.17 3.90 - 5.20 M/cumm [facility] Comment:Testing performed by : [address] [address] MCV 91.1 81.3 - 96.4 fL [facility] Comment:Testing performed by : [address] [address] MCH 31.2 27.1 - 33.3 pg [facility] Comment:Testing performed by : [address] [address] MCHC 34.2 32.3 - 35.7 g/dL [facility] Comment:Testing performed by : [address] [address] RDW CV 12.8 11.1 - 14.9 % [facility] Comment:Testing performed by : [address] [address] RDW SD 41.8 35.7 - 48.1 fL [facility] Comment:Testing performed by : [address] [address] NRBC abs 0.00 0.00 - 0.01 K/cumm [facility] Comment:Testing performed by : [address] [address] ANC Prelim 3.70 1.50 - 6.50 K/cumm [facility] Comment: Interpretive Data The rapid ANC is a preliminary automated count and may vary from the final ANC (Neut Abs) reported in the WBC differential that follows. Current interpretive data was last revised 2024. Testing performed by: [address] [address] Blood 03/16/2025 8:51 AM CDT 03/16/2025 8:57 AM CDT Celia Cabral NP LAB BLOOD ORDERABLES Final Result Performing Organization Address City/[facility] Co de Phone Number [address] [place] [address] * Vitamin D 25 hydroxy (03/16/2025 8:51 AM CDT) Pathologist [facility] [place] Vitamin D 25-OH 51.0 30.0 - 80.0 ng/mL Blood 03/16/2025 8:51 AM CDT 03/16/2025 12:32 PM CDT Celia Cabral NP LAB BLOOD ORDERABLES Final Result Performing Organization Address City/[facility] de Phone Number [address] [place] [address] * Lactate dehydrogenase (LD) (03/16/2025 8:51 AM CDT) [facility] Lactate dehydrogenase (LDH) 201 100 - 250 Units/L Comment:Testing performed by : [address] [address] Blood 03/16/2025 8:51 AM CDT 03/16/2025 8:57 AM CDT Celia Cabral NP LAB BLOOD ORDERABLES Final Result [facility] [address] [facility] Department [place] [address] * Comprehensive metabolic panel (03/16/2025 8:51 AM CDT) Sodium 142 135 - 145 mmol/L Comment:Testing performed by : [address] [address] Potassium, pl 3.5 3.3 - 4.9 mmol/L [facility] Comment:Testing performed by : [address] [address] Chloride 100 97 - 110 mmol/L [facility] Comment:Testing performed by : [address] [address] CO2 31 22 - 32 mmol/L [facility] Comment:Testing performed by : [address] [address] Anion gap 11 2 - 15 mmol/L [facility] Comment:Testing performed by : [address] [address] BUN 7 6 - 25 mg/dL [facility] Comment:Testing performed by : [address] [address] Creatinine 0.70 0.60 - 1.10 mg/dL [facility] Comment:Testing performed by : [address] [address] Glucose 106 70 - 199 mg/dL [facility] [...] was last revised 2022. Testing performed by: [address] [address] Calcium 9.5 8.5 - 10.3 mg/dL [facility] Comment:Testing performed by : [address] [address] Bilirubin, total 0.9 0.1 - 1.2 mg/dL [facility] Comment:Testing performed by : [address] [address] Protein, pl 6.5 6.5 - 8.5 g/dL [facility] Comment:Testing performed by : [address] [address] Albumin 4.5 3.5 - 5.0 g/dL [facility] Comment:Testing performed by : [address] [address] Alk phos 71 40 - 130 Units/L [facility] Comment:Testing performed by : [address] [address] ALT 9 7 - 45 Units/L [facility] Comment:Testing performed by : [address] [address] AST 19 10 - 45 Units/L [facility] Comment:Testing performed by : [address] [address] Blood 03/16/2025 8:51 AM CDT 03/16/2025 8:57 AM CDT us Celia Cabral COMPUTER SCIENCE INTERN LAB BLOOD ORDERABLES Final Result [facility] [address] [facility] Department [place] [address] * CT Chest W Contrast [...] Kindra Armas M.D. FT: FT Report ID: [id number] Reading Location: [id number] Procedure Note Kindra Mcintosh MD - 03/11/2025 [...] Kindra Armas M.D. FT: FT Report ID: [id number] Reading Location: [id number] us Celia Cabral NP IMG CT PROCEDURES Fi nal Result * POCT creatinine for contrast evaluation (03/09/2025 8:54 AM CDT) Creatinine POC 0.80 0.60 - 1.10 mg/dL Comment:Testing performed by : [facility], [address] [place] [address]., [address] Blood 03/09/2025 8:54 AM CDT 03/09/2025 8:54 AM CDT Walt Tadeo DO POINT OF CARE TEST ORDERABLE S Final Result Performing Organization Address [facility] Co de Phone Number [facility] [address] [place] [address] * eGFR (01/19/2025 8:35 AM CDT) eGFR [...] was last reviewed 2021. Testing performed by: [facility], [address] [place] [address]., [address] Blood 01/19/2025 8:35 AM CDT 01/19/2025 8:38 AM CDT us Walt Tadeo DO LAB BLOOD ORDERABLES Final R esult Performing Organization Address City/[facility]/ZIP Co de Phone Number [facility] [address] [employer] [place] [address] * Differential, auto (01/19/2025 8:35 AM CDT) Neutrophil abs 3.39 1.50 - 6.50 K/cumm Comment:Testing performed by : [facility], [address] [place] [address], [place]., [address] Imm gran abs 0.02 0.00 - 0.10 K/cumm [facility] Comment:Testing performed by : [facility], [address] [place] [address], [place]., [address] Lymphocyte abs 0.89 0.80 - 3.30 K/cumm [facility] Comment:Testing performed by : [address], [place]., [address] Monocyte abs 0.36 0.20 - 0.80 K/cumm [facility] Comment:Testing performed by : [address], [place]., [address] Eosinophil abs 0.07 0.00 - 0.50 K/cumm [facility] Comment:Testing performed by : [address], [place]., [address] Basophil abs 0.02 0.00 - 0.10 K/cumm [facility] Comment:Testing performed by : [address] [address] Neutrophil pct 71.4 % [facility] Comment: Interpretive Data Percent cell count reference ranges are not reported, since discordance with absolute values may lead to misinterpretation of CBC data. Current Interpretive Data was last revised on 2017. Testing performed by: [address] [address] Imm gran pct 0.4 % [facility] Comment: Interpretive Data Percent cell count reference ranges are not reported, since discordance with absolute values may lead to misinterpretation of CBC data. Current Interpretive Data was last revised on 2017. Testing performed by: [address] [address] Lymphocyte pct 18.7 % [facility] Comment: Interpretive Data Percent cell count reference ranges are not reported, since discordance with absolute values may lead to misinterpretation of CBC data. Current Interpretive Data was last revised on 2017. Testing performed by: [address] [address] Monocyte pct 7.6 % [facility] Comment: Interpretive Data Percent cell count reference ranges are not reported, since discordance with absolute values may lead to misinterpretation of CBC data. Current Interpretive Data was last revised on 2017. Testing performed by: [address] [address] Eosinophil pct 1.5 % [facility] Comment: Interpretive Data Percent cell count reference ranges are not reported, since discordance with absolute values may lead to misinterpretation of CBC data. Current Interpretive Data was last revised on 2017. Testing performed by: [address] [address] Basophil pct 0.4 % [facility] Comment: Interpretive Data Percent cell count reference ranges are not reported, since discordance with absolute values may lead to misinterpretation of CBC data. Current Interpretive Data was last revised on 2017. Testing performed by: [address] [address] Blood 01/19/2025 8:35 AM CDT 01/19/2025 8:38 AM CDT us Walt Tadeo DO LAB BLOOD ORDERABLES Final R esult [facility] [address] [facility] Department [place] [address] * CBC with auto differential (01/19/2025 8:35 AM CDT) WBC 4.75 3.80 - 9.90 K/cumm Comment:Testing performed by : [address] [address] Hgb 12.7 11.9 - 15.5 g/dL [facility] Comment:Testing performed by : [address] [address] Hct 37.6 35.6 - 45.5 % [facility] Comment:Testing performed by : [address] [address] Plt 160 150 - 400 K/cumm [facility] Comment:Testing performed by : [address] [address] MPV 9.3 9.1 - 12.3 fL [facility] LE[facility] Comment:Testing performed by : [facility], [address] [place] [address]., [address] RBC 4.07 3.90 - 5.20 M/cumm [facility] LEIGH Comment:Testing performed by : [address] [address] MCV 92.4 81.3 - 96.4 fL [facility] Comment:Testing performed by : [address] [address] MCH 31.2 27.1 - 33.3 pg [facility] Comment:Testing performed by : [address] [address] MCHC 33.8 32.3 - 35.7 g/dL [facility] Comment:Testing performed by : [address] [address] RDW CV 12.5 11.1 - 14.9 % [facility] Comment:Testing performed by : [address] [address] RDW SD 42.2 35.7 - 48.1 fL [facility] Comment:Testing performed by : [address] [address] NRBC abs 0.00 0.00 - 0.01 K/cumm [facility] Comment:Testing performed by : [address] [address] ANC Prelim 3.39 1.50 - 6.50 K/cumm [facility] Comment: Interpretive Data The rapid ANC is a preliminary automated count and may vary from the final ANC (Neut Abs) reported in the WBC differential that follows. Current interpretive data was last revised 2024. Testing performed by: [address] [address] Blood 01/19/2025 8:35 AM CDT 01/19/2025 8:38 AM CDT Walt Tadeo DO LAB BLOOD ORDERABLES Final R esult [facility] Department [place] [address] * Lactate dehydrogenase (LD) (01/19/2025 8:35 AM CDT) [facility] Lactate dehydrogenase (LDH) 177 100 - 250 Units/L Comment:Testing performed by : [address] [address] Blood 01/19/2025 8:35 AM CDT 01/19/2025 8:38 AM CDT us Walt Tadeo DO LAB BLOOD ORDERABLES Final R esult [facility] [address] [place] [address] * Comprehensive metabolic panel (01/19/2025 8:35 AM CDT) [facility] Sodium 143 135 - 145 mmol/L Comment:Testing performed by : [address] [address] Potassium, pl 3.7 3.3 - 4.9 mmol/L [facility] Comment:Testing performed by : [address] [address] Chloride 104 97 - 110 mmol/L [facility] Comment:Testing performed by : [address] [address] CO2 27 22 - 32 mmol/L [facility] Comment:Testing performed by : [address] [address] Anion gap 12 2 - 15 mmol/L [facility] Comment:Testing performed by : [address] [address] BUN 9 6 - 25 mg/dL [facility] Comment:Testing performed by : [address] [address] Creatinine 0.70 0.60 - 1.10 mg/dL [facility] Comment:Testing performed by : [address] [address] Glucose 100 70 - 199 mg/dL [facility] [...] was last revised 2022. Testing performed by: [address] [address] Calcium 9.4 8.5 - 10.3 mg/dL [facility] Comment:Testing performed by : [address] [address] Bilirubin, total 0.9 0.1 - 1.2 mg/dL [facility] Comment:Testing performed by : [address] [address] Protein, pl 6.6 6.5 - 8.5 g/dL [facility] Comment:Testing performed by : [address] [address] Albumin 4.4 3.5 - 5.0 g/dL [facility] Comment:Testing performed by : [address] [address] Alk phos 79 40 - 130 Units/L [facility] Comment:Testing performed by : [address] [address] ALT 10 7 - 45 Units/L [facility] Comment:Testing performed by : [address] [address] AST 18 10 - 45 Units/L [facility] Comment:Testing performed by : [address] [address] Blood 01/19/2025 8:35 AM CDT 01/19/2025 8:38 AM CDT us Walt Tadeo DO LAB BLOOD ORDERABLES Final R esult [facility] [address] [facility] Department [place] [address] * PET/CT FDG Skull to Thigh (01/14/2025 [...] Jaime Ramírez M.D. CH: FOREIGN Report ID: [id number] Reading Location: [id number] Procedure Note Jaime Ramírez Jr., MD - [...] Jaime Ramírez M.D. CH: FOREIGN Report ID: [id number] Reading Location: [id number] us Walt Tadeo DO IMG PET PROCEDURES Final Res ult * POCT glucose (01/14/2025 7:57 AM CDT) Glucose, POC 85 70 - 199 mg/dL Comment:Testing performed by : [facility], [address] [place] [address], [place]., [address] Blood 01/14/2025 7:57 AM CDT 01/14/2025 7:57 AM CDT Walt Tadeo DO LAB POCT ORDERABLES - DEVICE Final Result [facility] [address] [facility] Department [place] [address] from Last 3 Months Insurance MEDICARE ADVANTAGE MEDICARE ADVANTAGE Care Teams Call Circuit Worker Relationship Specialty Start Date End Date Benito Olsen MD [address] [place] [address] [place] [address] PCP - General Internal Medicine 02/09/24 Walt Tadeo DO [address] [address] Medical Oncologist/Tip Finisher Hematology and Oncology 12/25/17 Chapo An MD [address] [address] Radiation Oncologist Radiation Oncology 01/28/24
--- OUTSIDE RECORDS SUMMARY | 2025-04-05 16:28 | XMS_ITS | Encounter Summary ---
Author Organization [employer] Address 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
--- OUTSIDE RECORDS SUMMARY | 2025-04-05 16:28 | XMS_ITS | Encounter Summary ---
Author Organization [employer] Address [address] [place] [address] Care Team Providers Care Speech Correction Assistant Name Role Phone Unavailable Primary Care Provider Unavailabl e Encounter Details Date Type Department Care Team (Late st Contact Info) Description 05/22/1998 Inpatient Historical [facility] Xi Burgos MD [address] 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
--- OUTSIDE RECORDS SUMMARY | 2025-04-05 16:28 | XMS_ITS | Encounter Summary ---
Author Organization [employer] Address [address] [place] [address] Care Team Providers Care Senior Sales Manager Name Role Phone Unavailable Primary Care Provider Unavailabl e Encounter Details Date Type Department Care Team (Late st Contact Info) Description 07/18/1998 Outpatient Historical [facility] Xi Burgos MD [address] [facility] [address] [address] Prolapse of vaginal alegre without mention of uterine prolapse (Primary Dx) Social History Tobacco Use Types Packs/Day Years Used Date Smoking Tobacco: Never Assessed Comments Unknown Sex and Gender Information Value Date Recorded Sex Assigned at Not on file 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
--- NOTE | 2025-04-05 16:31 | ADMGEN ---
This patient, Evy Pierre, was admitted to Medical Room 341-01. Patient/family oriented to hospital policies and general routines including ID bracelet, bed and alarms, visiting hours, pain management, procedures, bathroom and other care routines, personal items, smoking policy, room service/diet, and visiting hours. Information on how to activate the Rapid Response Team has been discussed. Patient/Family are encouraged to report perceived risks to care and to ask questions if they do not understand what they are told or what they should do.
--- OUTSIDE RECORDS SUMMARY | 2025-04-05 16:55 | XMS_ITS ---
Author Organization [facility] Address [address] [place] [address] Care Team Providers Care Metallurgical Engineer Name Role Phone Walt Tadeo DO Unavailable [phone] Chapo An MD Unavailable [phone] Benito Olsen MD Primary Care Provider [phone] Active Problems Problem Noted Date Diagnosed Date [...] Tadeo DO Linked Problems [facility] Treatment Medications No medications scheduled. Past [...]
--- OUTSIDE RECORDS SUMMARY | 2025-04-05 16:55 | XMS_ITS | Encounter Summary ---
Author Organization [facility] Address [address] [place] [address] Care Team Providers Care Blanchard Grinder Operator Name Role Phone Unavailable Primary Care Provider Unavailabl e Encounter Details Date Type Department Care Team (Late st Contact Info) Description 12/21/1998 Outpatient Historical HIS MRI DEPT Xi Burgos MD [address] [facility] [address] [place] [address] Unspecified symptom associated with female genital organs (Primary Dx) Social History Tobacco Use Types Packs/Day Years Used Date Smoking Tobacco: Never Assessed Comments Unknown Sex and Gender Information Value Date Recorded Sex Assigned at Not on file 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
--- OUTSIDE RECORDS SUMMARY | 2025-04-05 16:55 | XMS_ITS | Clinical Summary ---
Author Organization [facility] Address [address] [place] [address] Care Team Providers Care Optical Scientist Name Role Phone Unavailable Primary Care Provider [...]
--- OUTSIDE RECORDS SUMMARY | 2025-04-05 16:55 | XMS_ITS | Clinical Summary ---
Author Organization [facility] Address [address] [place] [address] Care Team Providers Care Cone Classifier Tender Name Role Phone Walt Tadeo DO Unavailable [phone] Chapo An MD Unavailable [phone] Benito Olsen MD Primary Care Provider [phone] Allergies Active Allergy Reactions Criticality Noted Date [...] Team Description 03/17/2025 9:00 AM CDT Telemedicine [facility] 2 Radiation Oncology [address] [place] [address] Maryuri Lorenz, PA Malignant neoplasm of upper lobe of left lung (HCC) (Primary Dx); Follicular lymphoma grade II of lymph nodes of multiple sites (HCC); Personal history of radiation therapy 03/16/2025 10:00 AM CDT Infusion [facility] at [address] [address] Follicular lymphoma grade II of lymph nodes of multiple sites (HCC) (Primary Dx); Encounter for person encountering health services 03/16/2025 9:30 AM CDT Office Visit [facility] [address] [place] [phone] Walt Tadeo DO Follicular lymphoma grade II of lymph nodes of multiple sites (HCC) (Primary Dx) 03/16/2025 9:00 AM CDT Lab [facility] at [address] [address] Follicular lymphoma grade II of lymph nodes of multiple sites (HCC); Vitamin D deficiency 03/09/2025 8:37 AM CDT - 03/09/2025 11:59 PM CDT Hospital Encounter [facility] [address] [place] [address] Follicular lymphoma grade II of lymph nodes of multiple sites (HCC) Discharge Disposition: Discharge to home or self care 02/15/2025 Telephone [facility] [address] [place] [phone] Marcia Gunn, CHEMICAL SALES REPRESENTATIVE 01/19/2025 9:30 AM CDT Infusion [address] [address] Follicular lymphoma grade II of lymph nodes of multiple sites (HCC) (Primary Dx); Encounter for person encountering health services 01/19/2025 9:00 AM CDT Office Visit [facility] [address] [place] [phone] Walt Tadeo DO Follicular lymphoma grade II of lymph nodes of multiple sites (HCC) (Primary Dx); Vitamin D deficiency 01/19/2025 8:30 AM CDT Lab [facility] at [address] [address] Follicular lymphoma grade II of lymph nodes of multiple sites (HCC) 01/14/2025 7:48 AM CDT - 01/14/2025 11:59 PM CDT Hospital Encounter [facility] [address] [place] [address] Follicular lymphoma grade II of lymph nodes [...] on file 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 Testing performed by: [address] [address] Blood 03/16/2025 8:51 AM CDT 03/16/2025 8:57 AM CDT us Celia Cabral NP LAB BLOOD ORDERABLES Final Result [facility] LEIGH [facility] Department [place] [address] * Differential, auto (03/16/2025 8:51 AM CDT) Neutrophil abs 3.70 1.50 - 6.50 K/cumm Comment:Testing performed by : [address] [address] Imm gran abs 0.02 0.00 - 0.10 K/cumm HIWOT Comment:Testing performed by : [address] [address] Lymphocyte abs 0.87 0.80 - 3.30 K/cumm [facility] Comment:Testing performed by : [address] [address] Monocyte abs 0.49 0.20 - 0.80 K/cumm HI[facility] Comment:Testing performed by : [address] [address] Eosinophil abs 0.08 0.00 - 0.50 K/cumm HI[facility]OT Comment:Testing performed by : [address] [address] Basophil abs 0.02 0.00 - 0.10 K/cumm HI[facility] Comment:Testing performed by : [address] [address] Neutrophil pct 71.4 % [facility] Comment: Interpretive Data Percent cell count reference ranges are not reported, since discordance with absolute values may lead to misinterpretation of CBC data. Current Interpretive Data was last revised on 2017. Testing performed by: [address] [address] Imm gran pct 0.4 % [facility] Comment: Interpretive Data Percent cell count reference ranges are not reported, since discordance with absolute values may lead to misinterpretation of CBC data. Current Interpretive Data was last revised on 2017. Testing performed by: [address] [address] Lymphocyte pct 16.8 % [facility] Comment: Interpretive Data Percent cell count reference ranges are not reported, since discordance with absolute values may lead to misinterpretation of CBC data. Current Interpretive Data was last revised on 2017. Testing performed by: [address] [address] Monocyte pct 9.5 % [facility] Comment: Interpretive Data Percent cell count reference ranges are not reported, since discordance with absolute values may lead to misinterpretation of CBC data. Current Interpretive Data was last revised on 2017. Testing performed by: [address] [address] Eosinophil pct 1.5 % [facility] Comment: Interpretive Data Percent cell count reference ranges are not reported, since discordance with absolute values may lead to misinterpretation of CBC data. Current Interpretive Data was last revised on 2017. Testing performed by: [address] [address] Basophil pct 0.4 % [facility] Comment: Interpretive Data Percent cell count reference ranges are not reported, since discordance with absolute values may lead to misinterpretation of CBC data. Current Interpretive Data was last revised on 2017. Testing performed by: [address] [address] Blood 03/16/2025 8:51 AM CDT 03/16/2025 8:57 AM CDT Celia Cabral GEAR SHAPER LAB BLOOD ORDERABLES Final Result [facility] [address] [facility] Department [place] [address] * (ABNORMAL) CBC with auto differential (03/16/2025 8:51 AM CDT) WBC 5.18 3.80 - 9.90 K/cumm Comment:Testing performed by : [address] [address] Hgb 13.0 11.9 - 15.5 g/dL HI[facility]OT Comment:Testing performed by : [address] [address] Hct 38.0 35.6 - 45.5 % [facility] Comment:Testing performed by : [address] [address] Plt 136(L) 150 - 400 K/cumm HI[facility] Comment:Testing performed by : [address] [address] MPV 9.5 9.1 - 12.3 fL [facility] Comment:Testing performed by : [address] [address] RBC 4.17 3.90 - 5.20 M/cumm [facility] Comment:Testing performed by : [address] [address] MCV 91.1 81.3 - 96.4 fL [facility] Comment:Testing performed by : [address] [address] MCH 31.2 27.1 - 33.3 pg [facility] Comment:Testing performed by : [address] [address] MCHC 34.2 32.3 - 35.7 g/dL HI[facility] Comment:Testing performed by : [address] [address] RDW CV 12.8 11.1 - 14.9 % [facility] Comment:Testing performed by : [address] [address] RDW SD 41.8 35.7 - 48.1 fL [facility] Comment:Testing performed by : [address] [address] NRBC abs 0.00 0.00 - 0.01 K/cumm [facility] Comment:Testing performed by : [address] [address] ANC Prelim 3.70 1.50 - 6.50 K/cumm [facility] Comment: Interpretive Data The rapid ANC is a preliminary automated count and may vary from the final ANC (Neut Abs) reported in the WBC differential that follows. Current interpretive data was last revised 2024. Testing performed by: [address] [address] Blood 03/16/2025 8:51 AM CDT 03/16/2025 8:57 AM CDT Celia Cabral NP LAB BLOOD ORDERABLES Final Result Performing Organization Address City/[facility] Co de Phone Number [address] [place] [address] * Vitamin D 25 hydroxy (03/16/2025 8:51 AM CDT) Pathologist [facility] Vitamin D 25-OH 51.0 30.0 - 80.0 ng/mL Blood 03/16/2025 8:51 AM CDT 03/16/2025 12:32 PM CDT Celia Cabral NP LAB BLOOD ORDERABLES Final Result Performing Organization Address City/[facility] de Phone Number [address] [place] [address] * Lactate dehydrogenase (LD) (03/16/2025 8:51 AM CDT) [facility] Lactate dehydrogenase (LDH) 201 100 - 250 Units/L Comment:Testing performed by : [address] [address] Blood 03/16/2025 8:51 AM CDT 03/16/2025 8:57 AM CDT Celia Cabral NP LAB BLOOD ORDERABLES Final Result [facility] [address] [facility] Department [place] [address] * Comprehensive metabolic panel (03/16/2025 8:51 AM CDT) Sodium 142 135 - 145 mmol/L Comment:Testing performed by : [address] [address] Potassium, pl 3.5 3.3 - 4.9 mmol/L [facility] Comment:Testing performed by : [address] [address] Chloride 100 97 - 110 mmol/L HI[facility] Comment:Testing performed by : [address] [address] CO2 31 22 - 32 mmol/L [facility] Comment:Testing performed by : [address] [address] Anion gap 11 2 - 15 mmol/L [facility] Comment:Testing performed by : [address] [address] BUN 7 6 - 25 mg/dL HI[facility] Comment:Testing performed by : [address] [address] Creatinine 0.70 0.60 - 1.10 mg/dL [facility] Comment:Testing performed by : [address] [address] Glucose 106 70 - 199 mg/dL HIWOT [...] was last revised 2022. Testing performed by: [address] [address] Calcium 9.5 8.5 - 10.3 mg/dL HI[facility] Comment:Testing performed by : [address] [address] Bilirubin, total 0.9 0.1 - 1.2 mg/dL [facility] Comment:Testing performed by : [address] [address] Protein, pl 6.5 6.5 - 8.5 g/dL [facility] Comment:Testing performed by : [address] [address] Albumin 4.5 3.5 - 5.0 g/dL [facility] Comment:Testing performed by : [address] [address] Alk phos 71 40 - 130 Units/L HI[facility] Comment:Testing performed by : [address] [address] ALT 9 7 - 45 Units/L HI[facility] Comment:Testing performed by : [address] [address] AST 19 10 - 45 Units/L [facility] Comment:Testing performed by : [address] [address] Blood 03/16/2025 8:51 AM CDT 03/16/2025 8:57 AM CDT us Celia Cabral GEAR SHAPER LAB BLOOD ORDERABLES Final Result [facility] [address] [facility] Department [place] [address] * CT Chest W Contrast [...] Kindra Armas M.D. FT: FT Report ID: [id number] Reading Location: [id number] Procedure Note Kindra Mcintosh MD - 03/11/2025 [...] Kindra Armas M.D. FT: FT Report ID: [id number] Reading Location: [id number] us Celia Cabral NP IMG CT PROCEDURES Fi nal Result * POCT creatinine for contrast evaluation (03/09/2025 8:54 AM CDT) Creatinine POC 0.80 0.60 - 1.10 mg/dL Comment:Testing performed by : [facility], [address] [place] [address]., [address] Blood 03/09/2025 8:54 AM CDT 03/09/2025 8:54 AM CDT Walt Tadeo DO POINT OF CARE TEST ORDERABLE S Final Result Performing Organization Address [facility] Co de Phone Number [facility] [address] [place] [address] * eGFR (01/19/2025 8:35 AM CDT) eGFR [...] was last reviewed 2021. Testing performed by: [facility], [address] [place] [address]., [address] Blood 01/19/2025 8:35 AM CDT 01/19/2025 8:38 AM CDT us Walt Tadeo DO LAB BLOOD ORDERABLES Final R esult Performing Organization Address City/[facility]/ZIP Co de Phone Number [facility] [address] [place] [address] * Differential, auto (01/19/2025 8:35 AM CDT) Neutrophil abs 3.39 1.50 - 6.50 K/cumm Comment:Testing performed by : [facility], [address] [place] [address], [place]., [address] Imm gran abs 0.02 0.00 - 0.10 K/cumm [facility] Comment:Testing performed by : [facility], [address] [place] [address], [place]., [address] Lymphocyte abs 0.89 0.80 - 3.30 K/cumm [facility] Comment:Testing performed by : [address], [place]., [address] Monocyte abs 0.36 0.20 - 0.80 K/cumm [facility] Comment:Testing performed by : [address], [place]., [address] Eosinophil abs 0.07 0.00 - 0.50 K/cumm [facility] Comment:Testing performed by : [address], [place]., [address] Basophil abs 0.02 0.00 - 0.10 K/cumm [facility] Comment:Testing performed by : [address] [address] Neutrophil pct 71.4 % [facility] Comment: Interpretive Data Percent cell count reference ranges are not reported, since discordance with absolute values may lead to misinterpretation of CBC data. Current Interpretive Data was last revised on 2017. Testing performed by: [address] [address] Imm gran pct 0.4 % [facility] Comment: Interpretive Data Percent cell count reference ranges are not reported, since discordance with absolute values may lead to misinterpretation of CBC data. Current Interpretive Data was last revised on 2017. Testing performed by: [address] [address] Lymphocyte pct 18.7 % [facility] Comment: Interpretive Data Percent cell count reference ranges are not reported, since discordance with absolute values may lead to misinterpretation of CBC data. Current Interpretive Data was last revised on 2017. Testing performed by: [address] [address] Monocyte pct 7.6 % [facility] Comment: Interpretive Data Percent cell count reference ranges are not reported, since discordance with absolute values may lead to misinterpretation of CBC data. Current Interpretive Data was last revised on 2017. Testing performed by: [address] [address] Eosinophil pct 1.5 % [facility] Comment: Interpretive Data Percent cell count reference ranges are not reported, since discordance with absolute values may lead to misinterpretation of CBC data. Current Interpretive Data was last revised on 2017. Testing performed by: [address] [address] Basophil pct 0.4 % [facility] Comment: Interpretive Data Percent cell count reference ranges are not reported, since discordance with absolute values may lead to misinterpretation of CBC data. Current Interpretive Data was last revised on 2017. Testing performed by: [address] [address] Blood 01/19/2025 8:35 AM CDT 01/19/2025 8:38 AM CDT us Walt Tadeo DO LAB BLOOD ORDERABLES Final R esult [facility] [address] [facility] Department [place] [address] * CBC with auto differential (01/19/2025 8:35 AM CDT) WBC 4.75 3.80 - 9.90 K/cumm Comment:Testing performed by : [address] [address] Hgb 12.7 11.9 - 15.5 g/dL [facility] Comment:Testing performed by : [address] [address] Hct 37.6 35.6 - 45.5 % [facility] Comment:Testing performed by : [address] [address] Plt 160 150 - 400 K/cumm [facility] Comment:Testing performed by : [address] [address] MPV 9.3 9.1 - 12.3 fL [facility] LEIGH Comment:Testing performed by : [facility], [address] [place] [address]., [address] RBC 4.07 3.90 - 5.20 M/cumm [facility] LEIGH Comment:Testing performed by : [address] [address] MCV 92.4 81.3 - 96.4 fL [facility] Comment:Testing performed by : [address] [address] MCH 31.2 27.1 - 33.3 pg [facility] Comment:Testing performed by : [address] [address] MCHC 33.8 32.3 - 35.7 g/dL [facility] Comment:Testing performed by : [address] [address] RDW CV 12.5 11.1 - 14.9 % [facility] Comment:Testing performed by : [address] [address] RDW SD 42.2 35.7 - 48.1 fL [facility] Comment:Testing performed by : [address] [address] NRBC abs 0.00 0.00 - 0.01 K/cumm [facility] Comment:Testing performed by : [address] [address] ANC Prelim 3.39 1.50 - 6.50 K/cumm [facility] Comment: Interpretive Data The rapid ANC is a preliminary automated count and may vary from the final ANC (Neut Abs) reported in the WBC differential that follows. Current interpretive data was last revised 2024. Testing performed by: [address] [address] Blood 01/19/2025 8:35 AM CDT 01/19/2025 8:38 AM CDT Walt Tadeo DO LAB BLOOD ORDERABLES Final R esult [id number] Department [place] [address] * Lactate dehydrogenase (LD) (01/19/2025 8:35 AM CDT) [facility] Lactate dehydrogenase (LDH) 177 100 - 250 Units/L Comment:Testing performed by : [address] [address] Blood 01/19/2025 8:35 AM CDT 01/19/2025 8:38 AM CDT us Walt Tadeo DO LAB BLOOD ORDERABLES Final R esult [facility] [address] [place] [address] * Comprehensive metabolic panel (01/19/2025 8:35 AM CDT) [facility] Sodium 143 135 - 145 mmol/L Comment:Testing performed by : [address] [address] Potassium, pl 3.7 3.3 - 4.9 mmol/L [facility] Comment:Testing performed by : [address] [address] Chloride 104 97 - 110 mmol/L [facility] Comment:Testing performed by : [address] [address] CO2 27 22 - 32 mmol/L [facility] Comment:Testing performed by : [address] [address] Anion gap 12 2 - 15 mmol/L [facility] Comment:Testing performed by : [address] [address] BUN 9 6 - 25 mg/dL [facility] Comment:Testing performed by : [address] [address] Creatinine 0.70 0.60 - 1.10 mg/dL [facility] Comment:Testing performed by : [address] [address] Glucose 100 70 - 199 mg/dL HI[facility] [...] was last revised 2022. Testing performed by: [address] [address] Calcium 9.4 8.5 - 10.3 mg/dL [facility] Comment:Testing performed by : [address] [address] Bilirubin, total 0.9 0.1 - 1.2 mg/dL [facility] Comment:Testing performed by : [address] [address] Protein, pl 6.6 6.5 - 8.5 g/dL [facility] Comment:Testing performed by : [address] [address] Albumin 4.4 3.5 - 5.0 g/dL [facility] Comment:Testing performed by : [address] [address] Alk phos 79 40 - 130 Units/L [facility] Comment:Testing performed by : [address] [address] ALT 10 7 - 45 Units/L [facility] Comment:Testing performed by : [address] [address] AST 18 10 - 45 Units/L [facility] Comment:Testing performed by : [address] [address] Blood 01/19/2025 8:35 AM CDT 01/19/2025 8:38 AM CDT us Walt Tadeo DO LAB BLOOD ORDERABLES Final R esult [facility] [address] [facility] Department [place] [address] * PET/CT FDG Skull to Thigh (01/14/2025 [...] Jaime Ramírez M.D. CH: FOREIGN Report ID: [id number] Reading Location: [id number] Procedure Note Jaime Ramírez Jr., MD - [...] Jaime Ramírez M.D. CH: FOREIGN Report ID: [id number] Reading Location: [id number] us Walt Tadeo DO IMG PET PROCEDURES Final Res ult * POCT glucose (01/14/2025 7:57 AM CDT) Glucose, POC 85 70 - 199 mg/dL Comment:Testing performed by : [facility], [address] [place] [address], [place]., [address] Blood 01/14/2025 7:57 AM CDT 01/14/2025 7:57 AM CDT Walt Tadeo DO LAB POCT ORDERABLES - DEVICE Final Result [facility] [address] [facility] Department [place] [address] from Last 3 Months Insurance MEDICARE ADVANTAGE MEDICARE ADVANTAGE Care Teams Cone Classifier Tender Relationship Specialty Start Date End Date Benito Olsen MD [address] [place] [address] [place] [address] PCP - General Internal Medicine 02/09/24 Walt Tadeo DO [address] [address] Medical Oncologist/Detention Officer Hematology and Oncology 12/25/17 Chapo An MD [address] [address] Radiation Oncologist Radiation Oncology 01/28/24
--- OUTSIDE RECORDS SUMMARY | 2025-04-05 16:55 | XMS_ITS | Clinical Summary ---
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
--- OUTSIDE RECORDS SUMMARY | 2025-04-05 16:55 | XMS_ITS | Encounter Summary ---
Author Organization [facility] Address 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
--- OUTSIDE RECORDS SUMMARY | 2025-04-05 16:55 | XMS_ITS | Encounter Summary ---
Author Organization [facility] Address [address] [place] [address] Phone Care Team Providers Care Boiler Repairman Name Role Phone Benito Olsen MD Primary Care Provider [phone] Walt Tadeo DO Unavailable [phone] Chapo An MD Unavailable [phone] Benito Olsen MD Primary Care Provider [phone] Encounter Details Date Type Department Care Team (Late st Contact Info) Description 02/25/2023 Documentation [facility] Medicine Physicians [facility] Oncology [address] [address] Celia Cabral, THOMAS [address] [address] Social History Tobacco Use Types Packs/Day Years Used Date Smoking Tobacco: Never Smokeless Tobacco: Never Alcohol Use Standard Drinks/Week Comments No 0 (1 standard drink = 0.6 oz pur e alcohol) Comments Unknown Sex and Gender Information Value Date Recorded Sex Assigned at Not on file 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 Gender Identity Not on file Sexual Orientation Not on file documented as of this encounter Plan of Treatment Not on file documented as of this encounter Visit Diagnoses Not on filedocumented in this encounter Care Teams Boiler Repairman Relationship Specialty Start Date End Date Benito Olsen MD PCP - General 08/29/17 02/08/24 Benito Olsen MD [address] [facility] [place] [address] PCP - General Internal Medicine 02/09/24 Walt Tadeo DO [facility] [id number] Medical Oncologist/Deli Worker Hematology and Oncology 12/25/17 Chapo An MD [address] [id number] Radiation Oncologist Radiation Oncology 01/28/24 documented as of this encounter
--- OUTSIDE RECORDS SUMMARY | 2025-04-05 16:55 | XMS_ITS | Encounter Summary ---
Author Organization [employer] Address [address] [place] [address] Care Team Providers Care Blanket Winder Helper Name Role Phone Unavailable Primary Care Provider Unavailabl e Encounter Details Date Type Department Care Team (Late st Contact Info) Description 02/06/1999 Outpatient Historical [facility],NON-PATIENT Xi Burgos MD [address] 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
--- OUTSIDE RECORDS SUMMARY | 2025-04-05 16:55 | XMS_ITS | Encounter Summary ---
Author Organization [employer] Address 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
--- OUTSIDE RECORDS SUMMARY | 2025-04-05 16:55 | XMS_ITS | Encounter Summary ---
Author Organization [employer] Address [address] [place] [address] Care Team Providers Care Federal Appellate Clerk Name Role Phone Unavailable Primary Care Provider Unavailabl e Encounter Details Date Type Department Care Team (Late st Contact Info) Description 07/18/1998 Outpatient Historical [facility] X/[facility] Xi Burgos MD [address] [facility] [address] [place] [address] Prolapse of vaginal alegre without mention of uterine prolapse (Primary Dx) Social History Tobacco Use Types Packs/Day Years Used Date Smoking Tobacco: Never Assessed Comments Unknown Sex and Gender Information Value Date Recorded Sex Assigned at Not on file 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
[2025-04-06] VITALS (9 sets, daily range): BP systolic 128–142; BP diastolic 70–73; PULSE 70–94; RESP 16–18; TEMP 36.4–36.7; O2SAT 94–98
[2025-04-06 05:53] LABS: Hematocrit 36.1 % (37.0-47.0); Hemoglobin 11.9 g/dL (12.0-15.0); Immature Granulocyte Percent A 0.6 % (0-0.5); Immature Platelet Fraction Pct 2.2 % (0.9-11.2); Lymphocytes Absolute Auto 0.79 K/mm3 (0.9-3.2); Mean Corpuscular HGB Conc 33.0 g/dl (32-36); Mean Corpuscular Hemoglobin 32.0 pg (26-34); Mean Corpuscular Volume 97.0 fl (80-100); Nucleated Red Blood Cells Absolute Auto 0.000 K/mm3 (0.0-0.012); Nucleated Red Blood Cells Perc 0.0 % (0.0-0.2); Platelet Count Result 157 k/mm3 (150-375); Red Blood Count 3.72 M/mm3 (4.2-5.4); White Blood Count 3.6 K/mm3 (4.5-10.0)
[2025-04-06 06:17] LABS: Anion Gap 3 mmol/L (4-12); Blood Urea Nitrogen 11 mg/dL (7-17); Calcium 8.6 mg/dL (8.4-10.2); Carbon Dioxide 29 mmol/L (22-30); Chloride 103 mmol/L (98-107); Cholesterol 216 mg/dL (0-200); Estimated CRCL calculation 42 ml/min; Estimated Glomerular Filt Rate > 60; Glucose 91 mg/dL (65-110); HDL Direct 73 mg/dL; Potassium 3.6 mmol/L (3.4-5.0); Sodium 135 mmol/L (137-145); Triglycerides 71 mg/dL (<150)
[2025-04-06 08:25] LABS: Hemoglobin A1C 4.5 % (<5.7)
[2025-04-06] MEDS: ATORVASTATIN 40 MG TABLET PO (08:55)
[2025-04-06] MEDS: CLOPIDOGREL BISULFATE 75 MG TABLET PO (08:55)
[2025-04-06] MEDS: ASPIRIN 81 MG ENTERIC TABLET PO (08:55)
--- NOTE | 2025-04-06 16:37 | PM.IMPN ---
Progress Note: A&P Assessment and Plan (1) Neurological deficit, transient: Code(s): R29.818 - Other symptoms and signs involving the nervous system Status: Acute Assessment and Plan: New deficits of right facial droop, right hand weakness and numbness, right sided oral numbness, dizziness, balance disturbance noted shortly after 12:15 p.m. on 04/05. Total resolution sometime after 1:[address] and head/neck CTA performed on 04/05 showed no large vessel occlusion or acute CVA. - admission for observation and telemetry - not candidate for thrombolytics or thrombectomy due to resolution of symptoms and no large vessel occlusion identified on imaging - CXR showed a left upper lobe pneumonia, Lymphomatous involvement of the left upper lobe not excluded. >> patient has history of lung cancer to the left upper lobe for which she has received radiation. Head/neck CTA in favor of atelectasis versus pneumonia. Patient is currently asymptomatic. - neurology consulted - brain MRI w/wo ordered - echo w/Bubble ordered - neuro checks Q4 - consider PT/OT/ST if his CVA seen on MRI, will hold off on consulting their services given patient's symptoms have resolved - monitor daily labs, check lipid panel and A1C - start Atorvastatin 40 mg PO, Plavix 75 mg PO, ASA 81 mg - consider 30 day event monitoring at discharge if abnormality noted on telemetry monitoring (2) Shingles: Qualifiers: Herpes zoster complications: without complications Qualified Code(s): B02.9 - Zoster without complications Code(s): B02.9 - Zoster without complications Status: Acute Assessment and Plan: Patient noted a rash to her left breast fold that extends to her left back, following near the T4 dermatome. First noted rash around March 13. Rash is currently open, non crusted, non blistering. She has a previous history of shingles when she was in the 3rd grade to the left side of her face. - contact precautions - monitor (3) Thyroid nodule: Code(s): E04.1 - Nontoxic single thyroid nodule Status: Acute Assessment and Plan: Incidental, indeterminate 1.5 cm right thyroid nodule noted on head/neck CTA from 04/05. Will need follow-up thyroid ultrasound outpatient. (4) Lung cancer: Qualifiers: Laterality: left Lung location: upper lobe of lung Qualified Code(s): C34.12 - Malignant neoplasm of upper lobe, left bronchus or lung Code(s): C34.90 - Malignant neoplasm of unspecified part of unspecified bronchus or lung Status: Chronic Assessment and Plan: Patient has history of lung cancer to the left upper lung. S/p radiation treatment x2 through [facility]. Currently being observed. Imaging in favor of atelectasis/lymphomatous. No current systemic symptoms concerning for pneumonia. No leukocytosis noted. (5) Hodgkins lymphoma: Qualifiers: Hodgkin lymphoma type: unspecified type Lymphoma site: unspecified region Qualified Code(s): C81.90 - Hodgkin lymphoma, unspecified, unspecified site Code(s): C81.90 - Hodgkin lymphoma, unspecified, unspecified site Status: Chronic Assessment and Plan: History of lymphoma. Receives bimonthly infusions. Has CT of the chest to monitor progression every 8 weeks and a PET scan every 6 months. Receives care through [facility]. Plan From home with her daughter for further evaluation of right-sided deficits. She reports last known well at 12:15 p.m. today, 04/05. She developed a right facial droop, right arm weakness, right facial numbness, dizziness, balance disturbance, and right hand numbness shortly after 12:15 p.m.. She reports her symptoms persisted past arrival to the emergency department, however they began to lessen shortly after her arrival. currently patient symptoms have resovled, her CT scan of head is negative and any acute injury, patient stats she is now her baseline, patient will have MRI of brain, will follow and plan. Diet: Heart healthy GI Prophylaxis: N/a DVT Prophylaxis: SCDs IV fluids: None Lines/Tubes: Peripheral IV Code Status: Full code Subjective Date/time seen: 04/06/25 16:37 Interval history: From home with her daughter for further evaluation of right-sided deficits. She reports last known well at 12:15 p.m. today, 04/05. She developed a right facial droop, right arm weakness, right facial numbness, dizziness, balance disturbance, and right hand numbness shortly after 12:15 p.m.. She reports her symptoms persisted past arrival to the emergency department, however they began to lessen shortly after her arrival. currently patient symptoms have resovled, her CT scan of head is negative and any acute injury, patient stats she is now her baseline, patient will have MRI of brain, will follow and plan. Review of Systems Review of Systems: All systems reviewed & are unremarkable except as noted in HPI and below Exam Narrative: Patient is comfortable, NAD HEENT: eyes are clear and none icteric LUNGS:CTA HEART: RR S1S2 ABD: BS+, Soft and nontender Lower extremities: no edema SKIN: nonjaundiced Neuro: grossly intact. Objective Data Vital Signs Vital Signs: Vital Signs - 24 hr 04/05/25 20:09 04/05/25 20:20 04/05/25 21:15 Temperature 36.6 C Pulse Rate 85 Respiratory Rate 18 Blood Pressure 133/61 Pulse Oximetry 98 98 Oxygen Delivery Room Air Room Air 04/05/25 21:15 04/06/25 00:00 04/06/25 04:00 Temperature Pulse Rate 85 76 70 Respiratory Rate Blood Pressure Pulse Oximetry Oxygen Delivery 04/06/25 05:45 04/06/25 08:00 04/06/25 08:00 Temperature 36.7 C Pulse Rate 78 94 Respiratory Rate 16 Blood Pressure 130/70 Pulse Oximetry 94 Oxygen Delivery Room Air 04/06/25 12:00 04/06/25 14:00 Temperature 36.7 C Pulse Rate 76 78 Respiratory Rate 16 Blood Pressure 128/72 Pulse Oximetry 95 Oxygen Delivery Intake/Output Intake/Output: Intake & Output 04/03/25 04/04/25 04/05/25 04/06/25 22:59 23:59 23:59 23:59 Intake Total 290 940 Balance 290 940 Meds/Results Medications: Active Medications Generic Name Dose Route Start Last Admin Trade Name Freq PRN Reason Stop Dose Admin Acetaminophen 650 mg 04/05/25 16:52 Acetaminophen 325 Mg Tablet PO Q4H PRN Mild Pain (1-3) or Fever Aspirin 81 mg 04/06/25 09:00 04/06/25 08:55 Aspirin 81 Mg Enteric Tablet PO 81 mg QAM MELIDA Administration Atorvastatin Calcium 40 mg 04/06/25 09:00 04/06/25 08:55 Atorvastatin 40 Mg Tablet PO 40 mg DAILY MELIDA Administration Bisacodyl 5 mg 04/05/25 16:52 Bisacodyl 5 Mg Tablet Ec PO DAILY PRN Constipation Clopidogrel Bisulfate 75 mg 04/06/25 09:00 04/06/25 08:55 Clopidogrel Bisulfate 75 Mg Tablet PO 75 mg QAM MELIDA Administration Ondansetron HCl 4 mg 04/05/25 16:52 Ondansetron Inj 4 Mg/2 Ml Vial IV PUSH Q6H PRN Nausea And Vomiting Perflutren Lipid Microsphere 0 ml 04/05/25 16:49 Perflutren Lipid Microspheres 1.5 Ml Vial Diluted To 10 Ml Total Volume IV PUSH 04/08/25 16:49 ONCE PRN adequate visualization Protocol Radiology Results: ITS Impressions Head CT 04/05/25 13:18 IMPRESSION: 1. Normal aging brain. No acute intracranial process. Chest X-Ray 04/05/25 13:43 Impression: 1: Left upper lobe pneumonia. Lymphomatous involvement of the left upper lobe not excluded. Head/Neck CTA 04/05/25 13:53 IMPRESSION: 1. 0% stenosis of the right and left carotid bulbs relative to normal distal artery lumen diameter (NASCET criteria). 2. Unremarkable cerebral CT angiogram with no hemodynamic significant stenosis, thrombosis or aneurysm. 3. Bandlike consolidation in the left upper lobe and favor atelectasis over pneumonia. 4. Indeterminate 1.5 cm right thyroid nodule. Could consider thyroid ultrasound for risk stratification. Labs Labs: Laboratory Results - last 24 hr 04/06/25 05:19 WBC 3.6 L RBC 3.72 L Hgb 11.9 L Hct 36.1 L MCV 97.0 MCH 32.0 MCHC 33.0 RDW 13.1 Plt Count 157 MPV 9.9 Immature Gran % (Auto) 0.6 H Neut % (Auto) 63.1 Lymph % (Auto) 21.9 [place] % (Auto) 11.6 H Eos % (Auto) 2.2 Baso % (Auto) 0.6 Lymph # (Auto) 0.79 L [place] # (Auto) 0.4 Eos # (Auto) 0.1 Baso # (Auto) 0.0 Abs Immat Gran (auto) 0.02 Absolute Neuts (auto) 2.3 Absolute Nucleated RBC 0.000 Nucleated RBC % 0.0 % Immature Plt Fraction 2.2 Sodium 135 L Potassium 3.6 Chloride 103 Carbon Dioxide 29 Anion Gap 3 L BUN 11 Creatinine 0.65 L Estim Creat Clear Calc 42 Estimated GFR > 60 Glucose 91 Hemoglobin A1c 4.5 Calcium 8.6 Triglycerides 71 Cholesterol 216 H LDL Cholesterol Direct 106 HDL Direct 73 Quality VTE Prophylaxis VTE prophylaxis: mechanical ordered
--- NOTE | 2025-04-06 16:49 | ECHO_ITS ---
Patient Info Name: Evy Pierre Age: 85 years : 1940 Gender: Female Ht: 61 in Wt: 130 lbs BSA: 1.60 m2 HR: 86 bpm BP: 138 / 70 mmHg Heart Rhythm: Sinus Rhythm Technical Quality: Good Exam Date: 04/06/2025 3:21 PM Patient Status: I Admit Date: 04/05/2025 Exam Type: CA echo doppler w bubble study Complete two-dimensional, color flow and Doppler transthoracic echocardiogram is performed with agitated saline. Staff Referring Physician: Amber Coleman MD Pharmacy Technician Assistant: Marianne Stevens Attending Provider: Mac Sim Oca Contrast/Agitated Saline Contrast/Ag. Saline: Agitated Saline Amount: 20.00 ml Summary 1. Left ventricular chamber dimension is normal. 2. Left ventricular systolic function is normal, estimated at 60-65. 3. There is no increased left ventricular wall thickness. 4. The left ventricular diastolic function is grade I diastolic dysfunction. 5. Left atrial chamber dimension is mildly enlarged. 6. Patent foramen ovale visualized by color flow and agitated saline imaging. 7. There is mild mitral valve regurgitation. 8. There is mild tricuspid valve regurgitation. 9. Mild pulmonary hypertension, estimated pulmonary arterial systolic pressure is 36 mmHg. 10. There is moderate pulmonic regurgitation. Left Ventricle Left ventricular chamber dimension is normal. Left ventricular systolic function is normal, estimated at 60-65. There is no increased left ventricular wall thickness. The left ventricular diastolic function is grade I diastolic dysfunction. Right Ventricle Right ventricular chamber dimension is normal. Right ventricular systolic function is normal. Left Atria Left atrial chamber dimension is mildly enlarged. Right Atria Right atrial chamber dimension is normal. Atrial Septum Patent foramen ovale visualized by color flow and agitated saline imaging. Aortic Valve The aortic valve is trileaflet. There is mild aortic valve sclerosis. There is no aortic valve stenosis. There is trace aortic valve regurgitation. Pulmonic Valve The pulmonic valve is normal. There is no pulmonic valve stenosis. There is moderate pulmonic regurgitation. Mitral Valve The mitral valve has normal leaflets. There is no mitral valve stenosis. There is mild mitral valve regurgitation. Tricuspid Valve The tricuspid valve leaflets are normal. There is no significant tricuspid valve stenosis. There is mild tricuspid valve regurgitation. Mild pulmonary hypertension, estimated pulmonary arterial systolic pressure is 36 mmHg. Pericardium/Pleural The pericardium appears normal. There is no pericardial effusion. Inferior Vena Cava Normal inferior vena cava with >50% collapse upon inspiration consistent with normal right atrial pressure, 5 mmHg. Aorta The aortic root size at the sinus of Valsalva is normal. Left Ventricular Outflow Tract Name Value Normal LVOT 2D LVOT Diameter 1.9 cm LVOT Doppler LVOT Peak Velocity 126 cm/s LVOT Peak Gradient 6 mmHg LVOT Mean Gradient 3 mmHg LVOT VTI 27 cm LVOT Stroke Volume 76 ml LVOT CO 6.5 l/min LVOT CI 4.1 l/min/m2 Pulmonic Valve Name Value Normal RVOT Doppler RVOT Peak Velocity 107 cm/s RVOT Peak Gradient 5 mmHg PV Doppler PV Peak Velocity 133 cm/s PV Peak Gradient 7 mmHg Mitral Valve Name Value Normal MV Diastolic Function MV E Peak Velocity 91 cm/s MV A Peak Velocity 118 cm/s MV E/A 0.8 MV Decel Time (PW) 330 ms MV Annular TDI MV E/e' (Septal) 11.9 MV E/e' (Lateral) 10.0 MV E/e' (Average) 11.0 Tricuspid Valve Name Value Normal TV Regurgitation Doppler TR Peak Velocity 278 cm/s TR Peak Gradient 31 mmHg Estimated PAP/RSVP RA Pressure 5 mmHg <=5 PA Systolic Pressure 36 mmHg <36 RV Systolic Pressure 36 mmHg <36 Aortic Valve Name Value Normal AV Doppler AV Peak Velocity 183 cm/s AV Peak Gradient 13 mmHg AV Area (Cont Eq Álvaro) 1.9 cm2 AV DI (Álvaro) 0.69 AV Regurgitation 2D LVOT Area 2.8 cm2 Ventricles Name Value Normal LV Dimensions 2D/MM IVS Diastolic Thickness (2D) 0.8 cm 0.6-1.0 LVID Diastole (2D) 4.2 cm 3.8-5.2 LVIW Diastolic Thickness (2D) 0.9 cm 0.6-0.9 LVID Systole (2D) 2.6 cm 2.2-3.5 LVOT Diameter 1.9 cm LV Mass (2D Cubed) 115.80 g 67.00-162.00 LV Mass Index (2D Cubed) 72 g/m2 43-95 Relative Wall Thickness (2D) 0.44 <=0.42 LV Fractional Shortening/Ejection Fraction 2D/MM LV Fractional Shortening (2D) 38 % 27-45 LV EF (2D Teichholz) 69 % LV Diastolic Volume (4C MOD) 68 ml LV EF (4C MOD) 52 % LV Diastolic Volume (2C MOD) 66 ml LV EF (2C MOD) 64 % LV Diastolic Volume (BP MOD) 68 ml 46-106 LV Diastolic Volume Index (BP MOD) 42 ml/m2 29-61 LV Systolic Volume (BP MOD) 28 ml 14-42 LV Systolic Volume Index (BP MOD) 17 ml/m2 8-24 LV EF (BP MOD) 59 % 54-74 LV Diastolic Length (4C) 7.2 cm LV Systolic Length (4C) 6.0 cm LV Stroke Volume (4C MOD) 35 ml Atria Name Value Normal LA Dimensions LA Volume (4C A-L) 35 ml LA Volume (BP A-L) 31 ml RA Dimensions RA Systolic Major Perry Length (4C) 4.6 cm 2.2-2.8 RA Area (4C) 13.6 cm2 <=18.0 Report Signatures
[2025-04-07] VITALS: PULSE 71
[2025-04-07 04:00] VITALS: PULSE 66
[2025-04-07 04:31] VITALS: BP 144/71; PULSE 90; RESP 20; TEMP 36.6; O2SAT 97
[2025-04-07 06:22] VITALS: BP 144/71; PULSE 90; RESP 18; TEMP 36.6; O2SAT 97
[2025-04-07 08:00] VITALS: PULSE 75
[2025-04-07] MEDS: ATORVASTATIN 40 MG TABLET PO (08:46)
[2025-04-07] MEDS: CLOPIDOGREL BISULFATE 75 MG TABLET PO (08:46)
[2025-04-07] MEDS: ASPIRIN 81 MG ENTERIC TABLET PO (08:46)
--- NOTE | 2025-04-07 11:50 | PM.DS ---
DS: Admitting Diagnosis Discharge Date 04/07/25 Admitting Diagnosis Right Sided Weakness DS: Discharge Diagnosis Discharge Diagnosis (1) Neurological deficit, transient: Code(s): R29.818 - Other symptoms and signs involving the nervous system Status: Acute Assessment and Plan: New deficits of right facial droop, right hand weakness and numbness, right sided oral numbness, dizziness, balance disturbance noted shortly after 12:15 p.m. on 04/05. Total resolution sometime after 1:[address] and head/neck CTA performed on 04/05 showed no large vessel occlusion or acute CVA. - admission for observation and telemetry - not candidate for thrombolytics or thrombectomy due to resolution of symptoms and no large vessel occlusion identified on imaging - CXR showed a left upper lobe pneumonia, Lymphomatous involvement of the left upper lobe not excluded. >> patient has history of lung cancer to the left upper lobe for which she has received radiation. Head/neck CTA in favor of atelectasis versus pneumonia. Patient is currently asymptomatic. - neurology consulted - brain MRI w/wo ordered - echo w/Bubble ordered - neuro checks Q4 - consider PT/OT/ST if his CVA seen on MRI, will hold off on consulting their services given patient's symptoms have resolved - monitor daily labs, check lipid panel and A1C - start Atorvastatin 40 mg PO, Plavix 75 mg PO, ASA 81 mg - consider 30 day event monitoring at discharge if abnormality noted on telemetry monitoring (2) Shingles: Qualifiers: Herpes zoster complications: without complications Qualified Code(s): B02.9 - Zoster without complications Code(s): B02.9 - Zoster without complications Status: Acute Assessment and Plan: Patient noted a rash to her left breast fold that extends to her left back, following near the T4 dermatome. First noted rash around March 13. Rash is currently open, non crusted, non blistering. She has a previous history of shingles when she was in the 3rd grade to the left side of her face. - contact precautions - monitor (3) Thyroid nodule: Code(s): E04.1 - Nontoxic single thyroid nodule Status: Acute Assessment and Plan: Incidental, indeterminate 1.5 cm right thyroid nodule noted on head/neck CTA from 04/05. Will need follow-up thyroid ultrasound outpatient. (4) Lung cancer: Qualifiers: Laterality: left Lung location: upper lobe of lung Qualified Code(s): C34.12 - Malignant neoplasm of upper lobe, left bronchus or lung Code(s): C34.90 - Malignant neoplasm of unspecified part of unspecified bronchus or lung Status: Chronic Assessment and Plan: Patient has history of lung cancer to the left upper lung. S/p radiation treatment x2 [facility]. Currently being observed. Imaging in favor of atelectasis/lymphomatous. No current systemic symptoms concerning for pneumonia. No leukocytosis noted. (5) Hodgkins lymphoma: Qualifiers: Hodgkin lymphoma type: unspecified type Lymphoma site: unspecified region Qualified Code(s): C81.90 - Hodgkin lymphoma, unspecified, unspecified site Code(s): C81.90 - Hodgkin lymphoma, unspecified, unspecified site Status: Chronic Assessment and Plan: History of lymphoma. Receives bimonthly infusions. Has CT of the chest to monitor progression every 8 weeks and a PET scan every 6 months. Receives care through [facility]. Plan From home with her daughter for further evaluation of right-sided deficits. She reports last known well at 12:15 p.m. today, 04/05. She developed a right facial droop, right arm weakness, right facial numbness, dizziness, balance disturbance, and right hand numbness shortly after 12:15 p.m.. She reports her symptoms persisted past arrival to the emergency department, however they began to lessen shortly after her arrival. currently patient symptoms have resovled, her CT scan of head is negative and any acute injury, patient stats she is now her baseline, patient will have MRI of brain, will follow and plan. Diet: Heart healthy GI Prophylaxis: N/a DVT Prophylaxis: SCDs IV fluids: None Lines/Tubes: Peripheral IV Code Status: Full code DS: Summary Hospital Course Hospital Course: From home with her daughter for further evaluation of right-sided deficits. She reports last known well at 12:15 p.m. today, 04/05. She developed a right facial droop, right arm weakness, right facial numbness, dizziness, balance disturbance, and right hand numbness shortly after 12:15 p.m.. She reports her symptoms persisted past arrival to the emergency department, however they began to lessen shortly after her arrival. currently patient symptoms have resovled, her CT scan of head is negative and any acute injury, patient stats she is now her baseline, patient will have MRI of brain, will follow and plan. MRI of the brain did not show any acute injury however cardiac ECHO did show patient patent foramen ovale visualized by color flow and agitated saline imaging which according to patient runs in the family, I explained to the patient that this does increase her risk for future stroke, patient will follow up with her primary care provider for further recommendation. patient is clinically stable, will discharge patient home today. Time Spent with Patient Time attestation: Total time spent providing and/or coordinating discharge services: Exam Narrative: Patient is comfortable, NAD HEENT: eyes are clear and none icteric LUNGS:CTA HEART: RR S1S2 ABD: BS+, Soft and nontender Lower extremities: no edema SKIN: nonjaundiced Neuro: grossly intact. Discharge Plan Discharge Attending physician on discharge: Mac Hurtado Oca Consulting providers: Mariaelena Campos; Manoj Zelaya; Ivania Tabor; Curtis Medeiros; Henri Wells; Hank Purcell Discharging Clinician: Amber Coleman Patient Disposition: Home Activity: as tolerated Diet: heart healthy Discharge Instructions: Patient is instructed that she needs to repeat thyroid ultra sound in 1 year, patient has patent foramen ovale and patient has family history, this increases her risk for strokes. Patient to follow up with her primary care provider and neurologist as soon as possible, patient is instructed if any symptoms worsen to go to nearest ER. Patient Instructions: Antibiotic Form, Patent Foramen Ovale (DC) Patient Language: Citizen Of [place] Stand Alone Forms: General Discharge Information Follow-up/Referrals: Pretty,Benito Turner MD [Primary Care Provider, Unknown] Manuel Fernandez MD [Physician, Neurology] Discharge Medications: New aspirin 81 mg Tablet,Delayed Release (Dr/Ec) 81 mg PO QAM Qty: 30 0RF atorvastatin 40 mg Tablet 40 mg PO DAILY Qty: 30 0RF bisacodyl [Laxative (bisacodyl)] 5 mg Tablet,Delayed Release (Dr/Ec) 5 mg PO DAILY PRN (Reason: Constipation) Qty: 30 0RF clopidogrel 75 mg Tablet 75 mg PO QAM Qty: 30 0RF Continued Rituxan 10 mg/mL concentrate 100 mg IV .[id number] Date of admission: 04/05/25 16:04 Primary Care Provider: Pretty,Benito Turner Admitting Provider: Mac Hurtado Oca Attending physician on admission: Amber Coleman Condition: Stable
[2025-04-07 12:00] VITALS: PULSE 82
--- NOTE | 2025-04-07 16:23 | WPDNEURCNPN ---
Assessment and Plan Assessment and plan (1) TIA (transient ischemic attack): Code(s): G45.9 - Transient cerebral ischemic attack, unspecified Status: Acute Assessment and Plan: I reviewed the investigations which included CT angiogram of the head and neck and MRI of the brain these did not show any significant abnormalities. However LDL was high at 106. Echocardiogram shows a patent foramina ovale. This may need to be evaluated by advanced manufacturing technician however this can be done in outpatient as per the hospitalist team. Apparently she also has family history of the same. Patient should be treated with at dual antiplatelets and statin for 3 weeks and thereafter single anti-platelet and statin should be continued. Profile should be followed up periodically to keep the LDL under 65. (2) Hodgkins lymphoma: Qualifiers: Hodgkin lymphoma type: unspecified type Lymphoma site: unspecified region Qualified Code(s): C81.90 - Hodgkin lymphoma, unspecified, unspecified site Code(s): C81.90 - Hodgkin lymphoma, unspecified, unspecified site Status: Chronic Assessment and Plan: Patient was found to her 's lymphoma in 2014 and she has been followed up at [facility]. Now she also had found her lung cancer is also being managed. (3) Lung cancer: Qualifiers: Laterality: left Lung location: upper lobe of lung Qualified Code(s): C34.12 - Malignant neoplasm of upper lobe, left bronchus or lung Code(s): C34.90 - Malignant neoplasm of unspecified part of unspecified bronchus or lung Status: Chronic Assessment and Plan: This is also being evaluated and treated by oncologists [facility] [place]. (4) Patent foramen ovale: Code(s): Q21.12 - Patent foramen ovale Status: Acute (5) Hyperlipidemia: Code(s): E78.5 - Hyperlipidemia, unspecified Status: Acute Plan I reviewed the MRI of the brain shows mild white matter changes. No acute lesions were noted. Patient should follow the primary care physician and campos I have advised her regarding the above treatment. If there are any further questions I shall be glad to see her in my office. Consult date: 04/07/25 HPI: Evy Pierre is a 85 year old female With history of Hodgkin's lymphoma presented with the symptoms of numbness in the right arm and right face. She has done some yd work and I see came into the house the initially she had paresthesias in right arm and thereafter has spread to the right side of the face. When the symptoms persisted the family became concerned as she is brought to the hospital. Symptoms lasted for an hour and thereafter completely resolved. She does not have any other residual neurologic symptom. She did not have any weakness in the lower limbs. There is no history of prior stroke or transient ischemic attack. In the emergency room she has had a workup which included CT scan of the brain and a CT angiogram of the head and neck these did not show any significant abnormalities. However some other issues were raised such as finding in the left lung in the upper lobe and also something in the right thyroid nodule which are being investigated further. An MRI of the brain was performed which did not show any significant abnormality. The patient was found to have a patent foraminal avail on the echocardiogram. She also has history of surgery on cervical spine in the past however this was around 1990 or so. Not have any significant issues with the neck at this time. Review of Systems Review of Systems: All systems reviewed & are unremarkable except as noted in HPI and below [facility] Past Medical History Medical History (Updated 04/07/25 @ 16:31 by Mariaelena Campos MD) Hyperlipidemia Patent foramen ovale History of shingles Lung cancer Dysphagia Globus sensation Basal cell carcinoma of foot Hodgkins lymphoma Kidney stone Breast mass Abnormal breast biopsy Infertility, tubal origin Surgical History Surgical History History of hysterectomy Hx of fusion of cervical spine H/O lymph node biopsy H/O neck surgery Family History Family History Sibling Hypertension Family history of elevated blood lipids Family history of malignant neoplasm Family history of kidney disease Family history of malignant neoplasm of ovary Mother Family history of heart disease in male family member before age 55 Social History Social History Alcohol intake: never Substance use: never Substance use type: does not use Lack of Transportation: No Lack of Food: Never True Current Housing: I Have Housing Concerned About Future Housing: No Difficulty Paying Gas/Electric Bills: No Difficulty Paying for Meds: No Currently Unemployed: No Education: Decline to Answer Difficulty w/ Childcare or Family Care: No Spiritual care concerns: No Meds Home Medications and Allergies Home Medications ?Medication ?Instructions ?Recorded ?Confirmed ?Type rituximab 10 mg/mL 100 mg IV .[id number] 04/05/25 04/05/25 History concentrate,intravenous (Rituxan) aspirin 81 mg tablet,delayed 81 mg PO QAM #30 tabs 04/07/25 Rx release atorvastatin 40 mg tablet 40 mg PO DAILY #30 tabs 04/07/25 Rx bisacodyl 5 mg tablet,delayed 5 mg PO DAILY PRN Constipation #30 04/07/25 Rx release (Laxative (bisacodyl)) tabs clopidogrel 75 mg tablet 75 mg PO QAM #30 tabs 04/07/25 Rx Allergies Allergy/AdvReac Type Severity Reaction Status Date / Time Sulfa (Sulfonamide Allergy Mild Rash Verified 04/05/25 17:02 Antibiotics) codeine AdvReac Severe NAUSEA AND Verified 04/05/25 17:02 VOMITING Vital Signs Vital Signs - 24 hr 04/06/25 20:00 04/06/25 20:00 04/06/25 22:00 Temperature 97.6 F 97.6 F Pulse Rate 85 77 85 Respiratory Rate 18 18 Blood Pressure 142/73 H 142/73 H Pulse Oximetry 98 98 Oxygen Delivery 04/06/25 22:10 04/07/25 00:00 04/07/25 04:00 Temperature Pulse Rate 71 66 Respiratory Rate Blood Pressure Pulse Oximetry 98 Oxygen Delivery Room Air 04/07/25 04:31 04/07/25 06:22 04/07/25 08:00 Temperature 97.9 F 97.9 F Pulse Rate 90 90 Respiratory Rate 20 18 Blood Pressure 144/71 H 144/71 H Pulse Oximetry 97 97 Oxygen Delivery Room Air 04/07/25 08:00 04/07/25 10:47 04/07/25 11:24 Temperature Pulse Rate 75 Respiratory Rate Blood Pressure Pulse Oximetry Oxygen Delivery Room Air Room Air 04/07/25 12:00 Temperature Pulse Rate 82 Respiratory Rate Blood Pressure Pulse Oximetry Oxygen Delivery Exam Const: General: cooperative and comfortable HENMT: Head: atraumatic Mouth: Yes oropharynx normal Eyes: Alignment and Position: alignment normal and position normal EOM: EOMs intact bilaterally Neck: Neck: normal visual inspection and supple Other: No carotid bruit Resp: Effort & Inspection: normal respiratory effort Cardio: Heart sounds: S1 normal heart sound present and S2 normal heart sound present Skin: General skin exam: normal color Neuro: Cranial nerves: Yes CN's II-XII intact bilaterally, Yes facial symmetry and Yes Midline tongue present Cognition (Neuro): normal cognition Speech: normal speech Gait exam (Neuro): Normal gait present Sensory Exam: normal sensation Coordination: [id number] test normal and Normal rapid alternating movements of the distal upper extremity present (Neuro) Extrem: General: normal to inspection Psych: Appearance: well kempt Mental Status: mental status grossly normal Speech and movement: Normal speech and movement present Affect: normal affect Thought process: Normal thought process present Thought content: Yes Normal thought content present Insight: Good insight present (Psych) Judgement: Good judgement present (Psych) Results Labs 04/06/25 05:19 04/06/25 05:19
--- OUTSIDE RECORDS SUMMARY | 2025-04-08 12:15 | XMS_ITS | Clinical Summary ---
Author Organization [facility] Address [address] [place] [address] Care Team Providers Care Floor Person Name Role Phone Unavailable Primary Care Provider [...]
--- OUTSIDE RECORDS SUMMARY | 2025-04-08 12:16 | XMS_ITS | Encounter Summary ---
Author Organization [employer] Address [address] [place] [address] Care Team Providers Care Lacquer Dipping Machine Operator Name Role Phone Unavailable Primary Care Provider Unavailabl e Encounter Details Date Type Department Care Team (Late st Contact Info) Description 01/01/1999 Inpatient Historical [facility] Xi Burgos MD [address] 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
--- OUTSIDE RECORDS SUMMARY | 2025-04-08 12:16 | XMS_ITS | Encounter Summary ---
Author Organization [employer] Address 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
--- OUTSIDE RECORDS SUMMARY | 2025-04-08 12:16 | XMS_ITS | Clinical Summary ---
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
--- OUTSIDE RECORDS SUMMARY | 2025-04-08 12:16 | XMS_ITS | Encounter Summary ---
Author Organization [employer] Address [address] [place] [address] Care Team Providers Care Marine Fire Fighter Name Role Phone Unavailable Primary Care Provider Unavailabl e Encounter Details Date Type Department Care Team (Late st Contact Info) Description 07/18/1998 Outpatient Historical [facility] X[facility] Xi Burgos MD [address] [facility] [address] [address] Prolapse of vaginal alegre without mention of uterine prolapse (Primary Dx) Social History Tobacco Use Types Packs/Day Years Used Date Smoking Tobacco: Never Assessed Comments Unknown Sex and Gender Information Value Date Recorded Sex Assigned at Not on file 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
--- OUTSIDE RECORDS SUMMARY | 2025-04-08 12:16 | XMS_ITS | Encounter Summary ---
Author Organization [employer] Address 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
--- OUTSIDE RECORDS SUMMARY | 2025-04-08 12:16 | XMS_ITS | Encounter Summary ---
Author Organization [employer] Address [address] [place] [address] Care Team Providers Care Clothes Model Name Role Phone Unavailable Primary Care Provider Unavailabl e Encounter Details Date Type Department Care Team (Late st Contact Info) Description 02/06/1999 Outpatient Historical [facility] LAB,NON-PATIENT Xi Burgos MD [address] [facility] [address] [place] [address] Urinary tract infection, site not specified (Primary Dx) Social History Tobacco Use Types Packs/Day Years Used Date Smoking Tobacco: Never Assessed Comments Unknown Sex and Gender Information Value Date Recorded Sex Assigned at Not on file Legal Sex Female 3:54 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
--- OUTSIDE RECORDS SUMMARY | 2025-04-08 12:16 | XMS_ITS | Encounter Summary ---
Author Organization [facility] Address [address] [place] [address] Phone Care Team Providers Care Welder Pipe Making Name Role Phone Benito Olsen MD Primary Care Provider [phone] Walt Tadeo DO Unavailable [phone] Chapo An MD Unavailable [phone] Benito Olsen MD Primary Care Provider [phone] Encounter Details Date Type Department Care Team (Late st Contact Info) Description 02/25/[address] [facility] Phys[facility] Oncology [address] [address] Celia Cabral, THOMAS [address] [address] Social History Tobacco Use Types Packs/Day Years Used Date Smoking Tobacco: Never Smokeless Tobacco: Never Alcohol Use Standard Drinks/Week Comments No 0 (1 standard drink = 0.6 oz pur e alcohol) Comments Unknown Sex and Gender Information Value Date Recorded Sex Assigned at Not on file Legal Sex Female 7:56 PM RAIL TRACK LAYER Gender Identity Not on file Sexual Orientation Not on file documented as of this encounter Plan of Treatment Not on file documented as of this encounter Visit Diagnoses Not on filedocumented in this encounter Care Teams Welder Pipe Making Relationship Specialty Start Date End Date Benito Olsen MD PCP - General 08/29/17 02/08/24 Benito Olsen MD [address] [facility] [place] [address] PCP - General Internal Medicine 02/09/24 Walt Tadeo DO [facility] [phone] Medical Oncologist/Crystal Report Developer Hematology and Oncology 12/25/17 Chapo An MD [address] [phone] Radiation Oncologist Radiation Oncology 01/28/24 documented as of this encounter
--- OUTSIDE RECORDS SUMMARY | 2025-04-08 12:16 | XMS_ITS ---
Author Organization [facility] Address [address] [place] [address] Care Team Providers Care Vanstone Machine Operator Name Role Phone Walt Tadeo DO Unavailable [phone] Chapo An MD Unavailable [phone] eBnito Olsen MD Primary Care Provider [phone] Active Problems Problem Noted Date Diagnosed Date [...] Linked Problems [facility] services Treatment Medications No medications [...]
--- OUTSIDE RECORDS SUMMARY | 2025-04-08 12:16 | XMS_ITS | Clinical Summary ---
Author Organization [facility] Address [address] [place] [address] Care Team Providers Care Picker/Puller Name Role Phone Walt Tadeo DO Unavailable [phone] Chapo An MD Unavailable [phone] Benito Olsen MD Primary Care Provider [phone] Allergies Active Allergy Reactions Criticality Noted Date [...] Team Description 03/17/2025 9:[address] [facility] 2 Radiation Oncology [address] [place] [address] Maryuri Lorenz, PA Malignant neoplasm of upper lobe of left lung (HCC) (Primary Dx); Follicular lymphoma grade II of lymph nodes of multiple sites (HCC); Personal history of radiation therapy 03/16/2025 10:00 AM CDT Infusion [facility] at [address] [phone] Follicular lymphoma grade II of lymph nodes of multiple sites (HCC) (Primary Dx); Encounter for person encountering health services 03/16/2025 9:30 AM CDT Office Visit [facility] [address] [place] [phone] Walt Tadeo DO Follicular lymphoma grade II of lymph nodes of multiple sites (HCC) (Primary Dx) 03/16/2025 9:00 AM CDT Lab [facility] at [address] [address] Follicular lymphoma grade II of lymph nodes of multiple sites (HCC); Vitamin D deficiency 03/09/2025 8:37 AM CDT - 03/09/2025 11:59 PM CDT Hospital Encounter [facility] [address] [place] [address] Follicular lymphoma grade II of lymph nodes of multiple sites (HCC) Discharge Disposition: Discharge to home or self care 02/15/2025 Telephone [facility] [address] [place] [phone] Marcia Gunn, CVIR TECH 01/19/2025 9:30 AM CDT Infusion [address] [phone] Follicular lymphoma grade II of lymph nodes of multiple sites (HCC) (Primary Dx); Encounter for person encountering health services 01/19/2025 9:00 AM CDT Office Visit [facility] [address] [place] [phone] Walt Tadeo DO Follicular lymphoma grade II of lymph nodes of multiple sites (HCC) (Primary Dx); Vitamin D deficiency 01/19/2025 8:30 AM CDT Lab [facility] at [address] [address] Follicular lymphoma grade II of lymph nodes of multiple sites (HCC) 01/14/2025 7:48 AM CDT - 01/14/2025 11:59 PM CDT Hospital Encounter 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 Testing performed by: [address] [address] Blood 03/16/2025 8:51 AM CDT 03/16/2025 8:57 AM CDT us eClia Cabral NP LAB BLOOD ORDERABLES Final Result [facility]0 [facility] Department [place] [address] * Differential, auto (03/16/2025 8:51 AM CDT) Neutrophil abs 3.70 1.50 - 6.50 K/cumm Comment:Testing performed by : [address] [address] Imm gran abs 0.02 0.00 - 0.10 K/cumm [facility] Comment:Testing performed by : [address] [address] Lymphocyte abs 0.87 0.80 - 3.30 K/cumm [facility] Comment:Testing performed by : [address] [address] Monocyte abs 0.49 0.20 - 0.80 K/cumm [facility] Comment:Testing performed by : [address] [address] Eosinophil abs 0.08 0.00 - 0.50 K/cumm [facility] Comment:Testing performed by : [address] [address] Basophil abs 0.02 0.00 - 0.10 K/cumm [facility] Comment:Testing performed by : [address] [address] Neutrophil pct 71.4 % [facility] Comment: Interpretive Data Percent cell count reference ranges are not reported, since discordance with absolute values may lead to misinterpretation of CBC data. Current Interpretive Data was last revised on 2017. Testing performed by: [address] [address] Imm gran pct 0.4 % [facility] Comment: Interpretive Data Percent cell count reference ranges are not reported, since discordance with absolute values may lead to misinterpretation of CBC data. Current Interpretive Data was last revised on 2017. Testing performed by: [address] [address] Lymphocyte pct 16.8 % [facility] Comment: Interpretive Data Percent cell count reference ranges are not reported, since discordance with absolute values may lead to misinterpretation of CBC data. Current Interpretive Data was last revised on 2017. Testing performed by: [address] [address] Monocyte pct 9.5 % [facility] Comment: Interpretive Data Percent cell count reference ranges are not reported, since discordance with absolute values may lead to misinterpretation of CBC data. Current Interpretive Data was last revised on 2017. Testing performed by: [address] [address] Eosinophil pct 1.5 % [facility] Comment: Interpretive Data Percent cell count reference ranges are not reported, since discordance with absolute values may lead to misinterpretation of CBC data. Current Interpretive Data was last revised on 2017. Testing performed by: [address] [address] Basophil pct 0.4 % [facility] Comment: Interpretive Data Percent cell count reference ranges are not reported, since discordance with absolute values may lead to misinterpretation of CBC data. Current Interpretive Data was last revised on 2017. Testing performed by: [address] [address] Blood 03/16/2025 8:51 AM CDT 03/16/2025 8:57 AM CDT Celia Cabral [employer] LAB BLOOD ORDERABLES Final Result [facility] [address] [facility] Department [place] [address] * (ABNORMAL) CBC with auto differential (03/16/2025 8:51 AM CDT) WBC 5.18 3.80 - 9.90 K/cumm Comment:Testing performed by : [address] [address] Hgb 13.0 11.9 - 15.5 g/dL [facility] Comment:Testing performed by : [address] [address] Hct 38.0 35.6 - 45.5 % [facility] Comment:Testing performed by : [address] [address] Plt 136(L) 150 - 400 K/cumm [facility] Comment:Testing performed by : [address] [address] MPV 9.5 9.1 - 12.3 fL [facility] Comment:Testing performed by : [address] [address] RBC 4.17 3.90 - 5.20 M/cumm [facility] Comment:Testing performed by : [address] [address] MCV 91.1 81.3 - 96.4 fL [facility] Comment:Testing performed by : [address] [address] MCH 31.2 27.1 - 33.3 pg [facility] Comment:Testing performed by : [address] [address] MCHC 34.2 32.3 - 35.7 g/dL [facility] Comment:Testing performed by : [address] [address] RDW CV 12.8 11.1 - 14.9 % [facility] Comment:Testing performed by : [address] [address] RDW SD 41.8 35.7 - 48.1 fL [facility] Comment:Testing performed by : [address] [address] NRBC abs 0.00 0.00 - 0.01 K/cumm [facility] Comment:Testing performed by : [address] [address] ANC Prelim 3.70 1.50 - 6.50 K/cumm [facility] Comment: Interpretive Data The rapid ANC is a preliminary automated count and may vary from the final ANC (Neut Abs) reported in the WBC differential that follows. Current interpretive data was last revised 2024. Testing performed by: [address] [address] Blood 03/16/2025 8:51 AM CDT 03/16/2025 8:57 AM CDT Celia Cabral NP LAB BLOOD ORDERABLES Final Result Performing Organization Address City/[facility] Co de Phone Number [address] [place] [address] * Vitamin D 25 hydroxy (03/16/2025 8:51 AM CDT) Pathologist [facility] Vitamin D 25-OH 51.0 30.0 - 80.0 ng/mL Blood 03/16/2025 8:51 AM CDT 03/16/2025 12:32 PM CDT Celia Cabral NP LAB BLOOD ORDERABLES Final Result Performing Organization Address City/[facility] de Phone Number [address] [place] [address] * Lactate dehydrogenase (LD) (03/16/2025 8:51 AM CDT) [facility] Lactate dehydrogenase (LDH) 201 100 - 250 Units/L Comment:Testing performed by : [address] [address] Blood 03/16/2025 8:51 AM CDT 03/16/2025 8:57 AM CDT Celia Cabral NP LAB BLOOD ORDERABLES Final Result [facility] [address] [facility] [place] Department [place] [address] * Comprehensive metabolic panel (03/16/2025 8:51 AM CDT) Sodium 142 135 - 145 mmol/L Comment:Testing performed by : [address] [address] Potassium, pl 3.5 3.3 - 4.9 mmol/L [facility] Comment:Testing performed by : [address] [address] Chloride 100 97 - 110 mmol/L [facility] Comment:Testing performed by : [address] [address] CO2 31 22 - 32 mmol/L [facility] Comment:Testing performed by : [address] [address] Anion gap 11 2 - 15 mmol/L [facility] Comment:Testing performed by : [address] [address] BUN 7 6 - 25 mg/dL [facility] Comment:Testing performed by : [address] [address] Creatinine 0.70 0.60 - 1.10 mg/dL [facility] Comment:Testing performed by : [address] [address] Glucose 106 70 - 199 mg/dL [facility] [...] was last revised 2022. Testing performed by: [address] [address] Calcium 9.5 8.5 - 10.3 mg/dL [facility] Comment:Testing performed by : [address] [address] Bilirubin, total 0.9 0.1 - 1.2 mg/dL [facility] Comment:Testing performed by : [address] [address] Protein, pl 6.5 6.5 - 8.5 g/dL [facility] Comment:Testing performed by : [address] [address] Albumin 4.5 3.5 - 5.0 g/dL [facility] Comment:Testing performed by : [address] [address] Alk phos 71 40 - 130 Units/L [facility] Comment:Testing performed by : [address] [address] ALT 9 7 - 45 Units/L [facility] Comment:Testing performed by : [address] [address] AST 19 10 - 45 Units/L [facility] Comment:Testing performed by : [address] [address] Blood 03/16/2025 8:51 AM CDT 03/16/2025 8:57 AM CDT us Celia Cabral [employer] LAB BLOOD ORDERABLES Final Result [facility] [address] [facility] [place] Department [place] [address] * CT Chest W Contrast [...] Kindra Armas M.D. FT: FT Report ID: [id number] Reading Location: [id number] Procedure Note Kindra Mcintosh MD - 03/11/2025 [...] Kindra Armas M.D. FT: FT Report ID: [id number] Reading Location: [id number] us Celia Cabral NP IMG CT PROCEDURES Fi nal Result * POCT creatinine for contrast evaluation (03/09/2025 8:54 AM CDT) Creatinine POC 0.80 0.60 - 1.10 mg/dL Comment:Testing performed by : [facility], [address] [place] [address]., [address] Blood 03/09/2025 8:54 AM CDT 03/09/2025 8:54 AM CDT Walt Tadeo DO POINT OF CARE TEST ORDERABLE S Final Result Performing Organization Address [facility] Co de Phone Number [facility] [address] [place] [address] * eGFR (01/19/2025 8:35 AM CDT) eGFR [...] was last reviewed 2021. Testing performed by: [facility], [address] [place] [address]., [address] Blood 01/19/2025 8:35 AM CDT 01/19/2025 8:38 AM CDT us Walt Tadeo DO LAB BLOOD ORDERABLES Final R esult Performing Organization Address City/[facility]/ZIP Co de Phone Number [facility] [address] [place] [address] * Differential, auto (01/19/2025 8:35 AM CDT) Neutrophil abs 3.39 1.50 - 6.50 K/cumm Comment:Testing performed by : [facility], [address] [place] [address], [place]., [address] Imm gran abs 0.02 0.00 - 0.10 K/cumm [facility] Comment:Testing performed by : [facility], [address] [place] [address], [place]., [address] Lymphocyte abs 0.89 0.80 - 3.30 K/cumm [facility] Comment:Testing performed by : [address], [place]., [address] Monocyte abs 0.36 0.20 - 0.80 K/cumm [facility] Comment:Testing performed by : [address], [place]., [address] Eosinophil abs 0.07 0.00 - 0.50 K/cumm [facility] Comment:Testing performed by : [address], [place]., [address] Basophil abs 0.02 0.00 - 0.10 K/cumm [facility] Comment:Testing performed by : [address] [address] Neutrophil pct 71.4 % [facility] Comment: Interpretive Data Percent cell count reference ranges are not reported, since discordance with absolute values may lead to misinterpretation of CBC data. Current Interpretive Data was last revised on 2017. Testing performed by: [address] [address] Imm gran pct 0.4 % [facility] Comment: Interpretive Data Percent cell count reference ranges are not reported, since discordance with absolute values may lead to misinterpretation of CBC data. Current Interpretive Data was last revised on 2017. Testing performed by: [address] [address] Lymphocyte pct 18.7 % [facility] Comment: Interpretive Data Percent cell count reference ranges are not reported, since discordance with absolute values may lead to misinterpretation of CBC data. Current Interpretive Data was last revised on 2017. Testing performed by: [address] [address] Monocyte pct 7.6 % [facility] Comment: Interpretive Data Percent cell count reference ranges are not reported, since discordance with absolute values may lead to misinterpretation of CBC data. Current Interpretive Data was last revised on 2017. Testing performed by: [address] [address] Eosinophil pct 1.5 % [facility] Comment: Interpretive Data Percent cell count reference ranges are not reported, since discordance with absolute values may lead to misinterpretation of CBC data. Current Interpretive Data was last revised on 2017. Testing performed by: [address] [address] Basophil pct 0.4 % [facility] Comment: Interpretive Data Percent cell count reference ranges are not reported, since discordance with absolute values may lead to misinterpretation of CBC data. Current Interpretive Data was last revised on 2017. Testing performed by: [address] [address] Blood 01/19/2025 8:35 AM CDT 01/19/2025 8:38 AM CDT us Walt Tadeo DO LAB BLOOD ORDERABLES Final R esult [facility] [address] [facility] Department [place] [address] * CBC with auto differential (01/19/2025 8:35 AM CDT) WBC 4.75 3.80 - 9.90 K/cumm Comment:Testing performed by : [address] [address] Hgb 12.7 11.9 - 15.5 g/dL [facility] Comment:Testing performed by : [address] [address] Hct 37.6 35.6 - 45.5 % [facility] Comment:Testing performed by : [address] [address] Plt 160 150 - 400 K/cumm [facility] Comment:Testing performed by : [address] [address] MPV 9.3 9.1 - 12.3 fL [facility] LEIGH Comment:Testing performed by : [facility], [address] [place] [address]., [address] RBC 4.07 3.90 - 5.20 M/cumm [facility] LEIGH Comment:Testing performed by : [address] [address] MCV 92.4 81.3 - 96.4 fL [facility] Comment:Testing performed by : [address] [address] MCH 31.2 27.1 - 33.3 pg [facility] Comment:Testing performed by : [address] [address] MCHC 33.8 32.3 - 35.7 g/dL [facility] Comment:Testing performed by : [address] [address] RDW CV 12.5 11.1 - 14.9 % [facility] Comment:Testing performed by : [address] [address] RDW SD 42.2 35.7 - 48.1 fL [facility] Comment:Testing performed by : [address] [address] NRBC abs 0.00 0.00 - 0.01 K/cumm [facility] Comment:Testing performed by : [address] [address] ANC Prelim 3.39 1.50 - 6.50 K/cumm [facility] Comment: Interpretive Data The rapid ANC is a preliminary automated count and may vary from the final ANC (Neut Abs) reported in the WBC differential that follows. Current interpretive data was last revised 2024. Testing performed by: [address] [address] Blood 01/19/2025 8:35 AM CDT 01/19/2025 8:38 AM CDT Walt Tadeo DO LAB BLOOD ORDERABLES Final R esult [facility] Department [place] [address] * Lactate dehydrogenase (LD) (01/19/2025 8:35 AM CDT) [facility] Lactate dehydrogenase (LDH) 177 100 - 250 Units/L Comment:Testing performed by : [address] [address] Blood 01/19/2025 8:35 AM CDT 01/19/2025 8:38 AM CDT us Walt Tadeo DO LAB BLOOD ORDERABLES Final R esult [facility] [address] [place] [address] * Comprehensive metabolic panel (01/19/2025 8:35 AM CDT) [facility] Sodium 143 135 - 145 mmol/L Comment:Testing performed by : [address] [address] Potassium, pl 3.7 3.3 - 4.9 mmol/L [facility] Comment:Testing performed by : [address] [address] Chloride 104 97 - 110 mmol/L [facility] Comment:Testing performed by : [address] [address] CO2 27 22 - 32 mmol/L [facility] Comment:Testing performed by : [address] [address] Anion gap 12 2 - 15 mmol/L [facility] Comment:Testing performed by : [address] [address] BUN 9 6 - 25 mg/dL [facility] Comment:Testing performed by : [address] [address] Creatinine 0.70 0.60 - 1.10 mg/dL [facility] Comment:Testing performed by : [address] [address] Glucose 100 70 - 199 mg/dL [facility] [...] was last revised 2022. Testing performed by: [address] [address] Calcium 9.4 8.5 - 10.3 mg/dL [facility] Comment:Testing performed by : [address] [address] Bilirubin, total 0.9 0.1 - 1.2 mg/dL [facility] Comment:Testing performed by : [address] [address] Protein, pl 6.6 6.5 - 8.5 g/dL [facility] Comment:Testing performed by : [address] [address] Albumin 4.4 3.5 - 5.0 g/dL [facility] Comment:Testing performed by : [address] [address] Alk phos 79 40 - 130 Units/L [facility] Comment:Testing performed by : [address] [address] ALT 10 7 - 45 Units/L [facility] Comment:Testing performed by : [address] [address] AST 18 10 - 45 Units/L [facility] Comment:Testing performed by : [address] [address] Blood 01/19/2025 8:35 AM CDT 01/19/2025 8:38 AM CDT us Walt Tadeo DO LAB BLOOD ORDERABLES Final R esult [facility] [address] [facility] Department [place] [address] * PET/CT FDG Skull to Thigh (01/14/2025 [...] Jaime Ramírez M.D. CH: FOREIGN Report ID: [id number] Reading Location: [id number] Procedure Note Jaime Ramírez Jr., MD - [...] Jaime Ramírez M.D. CH: FOREIGN Report ID: [id number] Reading Location: [id number] us Walt Tadeo DO IMG PET PROCEDURES Final Res ult * POCT glucose (01/14/2025 7:57 AM CDT) Glucose, POC 85 70 - 199 mg/dL Comment:Testing performed by : [facility], [address] [place] [address], [place]., [address] Blood 01/14/2025 7:57 AM CDT 01/14/2025 7:57 AM CDT Walt Tadeo DO LAB POCT ORDERABLES - DEVICE Final Result [facility] [address] [facility] Department [place] [address] from Last 3 Months Insurance MEDICARE ADVANTAGE MEDICARE ADVANTAGE Care Teams Picker/Puller Relationship Specialty Start Date End Date Benito Olsen MD [address] [place] [address] DEPT INTERNAL [place] [address] PCP - General Internal Medicine 02/09/24 Walt Tadeo DO [address] [address] Medical Oncologist/Ec Teacher Hematology and Oncology 12/25/17 Chapo An MD [address] [address] Radiation Oncologist Radiation Oncology 01/28/24
== END 2025-04-07 13:50 | disposition home or self-care (01) ==
LOC: ANHED 15:08 → ANH3MED 04-06 13:14
PROVIDERS: Student in an Organized Health Care Education/Training Program; Admitting Provider Student in an Organized Health Care Education/Training Program; Emergency Provider Student in an Organized Health Care Education/Training Program; PCP Internal Medicine; Visit Provider Family Medicine
DX: G45.9 Transient cerebral ischemic attack, unspecified (principal); J18.9 Pneumonia, unspecified organism; B02.9 Zoster without complications; Q21.12 Patent foramen ovale; E04.1 Nontoxic single thyroid nodule; Z85.71 Personal history of Hodgkin lymphoma; Z85.118 Personal history of other malignant neoplasm of bronchus and lung; Z92.3 Personal history of irradiation; E78.5 Hyperlipidemia, unspecified
CPT/HCPCS: 36415; 70450; 70496; 70498; 70553; 71045; 76536; 80048; 80053; 80061; 81003; 82948; 83036; 84484; 85025; 85055; 85610; 85730; 87040; 93005; 93306; 96365; 96375; 97161; 97165; 99285; A9270; A9577; G0378; J0696; J2405; Q9967

== ENCOUNTER 2025-04-22 08:56 | Emergency (ER) | payer MEDICARE, SELFPAY ==
--- NOTE | ~2025-04-22 | XR_ITS ---
EXAMINATION: XR chest 2V, 04/22/2025 9:32 [facility] HISTORY: cough, shortness of breath, recent pneumonia COMPARISON: No comparisons available. Technique: 2 views obtained. Findings: Small left upper lobe infiltrate. No pneumothorax. Heart is normal size. Mediastinal and hilar contours are within normal limits. Bony thorax no acute abnormality. Impression: Small left upper lobe pneumonia. Follow-up recommended to assess complete resolution Reviewed, dictated and finalized at location P. LEAD Impression: Small left upper lobe pneumonia. Follow-up recommended to assess complete resol ution
[2025-04-22 09:06] VITALS: BP 178/91; PULSE 86; RESP 14; TEMP 36.5; O2SAT 98
--- NOTE | 2025-04-22 09:13 | ED_ITS ---
HPI - URI/Sore Throat General Chief Complaint: Upper Respiratory Infection Stated Complaint: CONGESTION/HEADACHE/DIZZY/WEAK Time Seen by Provider: 04/22/25 09:10 Source: patient, family and old records reviewed Mode of arrival: ambulatory Limitations: no limitations History of Present Illness HPI Narrative: Evy is a 85 year old female patient presenting to the clinic today with c/o feeling dizzy, weak, headache, runny nose and chest congestion. States symptoms have been going on for several weeks. Was admitted on Apr 05 for TIA and states they found some early pneumonia. She was given IV antibiotics in the hospital but did not receive any antibiotics at discharge. Patient thinks she may need more antibiotics. Nasal drainage is clear. Feels shortness of breath with the chest congestion. Denies any fever, chills, or body aches. Related Data Home Medications ?Medication ?Instructions ?Recorded ?Confirmed ?Last Taken ?Type rituximab 10 mg/mL 100 mg IV .[id number] 04/05/25 04/05/25 03/16/25 History concentrate,intravenous (Rituxan) Allergies Allergy/AdvReac Type Severity Reaction Status Date / Time Sulfa (Sulfonamide Allergy Mild Rash Verified 04/22/25 09:06 Antibiotics) codeine AdvReac Severe NAUSEA AND Verified 04/22/25 09:06 VOMITING Review of Systems Review of Systems: Pertinent positives per HPI. Patient denies any fever, chills, rash, headache, visual changes, chest pain, palpitations, nausea, vomiting, diarrhea, constipation, abdominal pain, or any urinary issues. COUNT INCLUDES THE [facility] Past Medical History Medical History Hyperlipidemia Patent foramen ovale History of shingles Lung cancer Dysphagia Globus sensation Basal cell carcinoma of foot Hodgkins lymphoma Kidney stone Breast mass Abnormal breast biopsy Infertility, tubal origin Surgical History Surgical History History of hysterectomy Hx of fusion of cervical spine H/O lymph node biopsy H/O neck surgery Family History Family History Sibling Hypertension Family history of elevated blood lipids Family history of malignant neoplasm Family history of kidney disease Family history of malignant neoplasm of ovary Mother Family history of heart disease in male family member before age 55 Social History Social History Smoking status: Never smoker Alcohol intake: never Substance use: never Substance use type: does not use Lack of Transportation: No Lack of Food: Never True Current Housing: I Have Housing Concerned About Future Housing: No Difficulty Paying Gas/Electric Bills: No Difficulty Paying for Meds: No Currently Unemployed: No Education: Decline to Answer Difficulty w/ Childcare or Family Care: No Spiritual care concerns: No Comments At the time of my signature, I reviewed and agree with the nursing past medical, surgical, social, and family history. There is no relevant family history pertinent to the patient complaint. Exam Narrative: General: Well-developed, well nourished, in no apparent distress Head: Normocephalic, atraumatic Eyes: Pupils equally round and reactive to light bilaterally, EOM intact, sclera and conjunctive clear, no discharge, lids normal Ears: TMs intact and clear, ear canals clear, no drainage, grossly hearing normal. Nose: Nares patent, clear nasal discharge, mild inflammation, no sinus tenderness. Mouth: Oral pharynx without lesions or masses, good dentition, MMM. PND Neck: Supple, trachea midline, no enlargement of anterior or posterior cervical nodes, no thyroid masses or goiter palpable. Cardio: Regular rate and rhythm, s1 and s2 normal, no murmur appreciated. Resp: Clear to auscultation, no rhonchi, rales, wheezing or rubs Musculoskeletal: No deformity, non-tender to palpation, grossly normal range of motion, muscle strength strong and equal, peripheral pulse strong, no edema, no cyanosis, normal gait and station Neuro: Alert and oriented x4 with normal speech, no focal deficits, cranial nerves I through XII intact, muscle strength 4 out of 5, sensation intact bilaterally Course Course Emergency Course: Portions of this record may have been created with voice recognition software. Level of Care: Express Care Visit Vital Signs Vital signs: Vital Signs Temperature 36.5 C 04/22/25 09:06 Pulse Rate 86 04/22/25 09:06 Respiratory Rate 14 04/22/25 09:06 Blood Pressure 178/91 H 04/22/25 09:06 Pulse Oximetry 98 04/22/25 09:06 Oxygen Delivery Room Air 04/22/25 09:06 Temperature 36.5 C 04/22/25 09:06 Pulse Rate 86 04/22/25 09:06 Respiratory Rate 14 04/22/25 09:06 Blood Pressure 160/90 H 04/22/25 10:15 Pulse Oximetry 98 04/22/25 09:06 Oxygen Delivery Room Air 04/22/25 09:06 Vital signs reviewed MDM - URI/Sore Throat MDM Narrative Medical decision making narrative: At the time of visit patient is resting comfortably on the exam table. Patient appears to be nontoxic. C/o feeling dizzy, weak, headache, runny nose, and chest congestion. States symptoms have been going on for several weeks. Was admitted on Apr 05 for TIA and states they found some early pneumonia. She was given IV antibiotics in the hospital but did not receive any antibiotics at discharge. Patient was placed on Plavix, atorvastatin, and aspirin Patient thinks she may need more antibiotics. Nasal drainage is clear. Feels shortness of breath with the chest congestion. Denies any fever, chills, or body aches. Takes Rituxan for immunotherapy. Chest x-ray and EKG were ordered. On exam patient has nasal drainage, mild anterior turbinate inflammation, postnasal drip, oral pharynx mildly red, lung sounds are clear, heart rates regular rate and rhythm, neuro exam is normal. EKG: EKG shows normal sinus rhythm with a heart rate of 74 beats per minute. No ST elevation, depression, or T-wave inversion. Diagnostics: Chest x-ray shows possible left upper lobe pneumonia per radiologist- Patient has history of lung cancer to the left upper lung. CTA of brain/carotids from April 05 2025 shows patent carotids, no acute ischemia or brain bleed. MRI of brain on Apr 06 2025 showed 1. Normal for age brain. No acute intracranial process. Plan: All test results were reviewed with the patient. Offered to send patient to the ER for further evaluation as she is reporting dizziness, headache, weakness, and chest congestion/shortness of breath. Patient declines transfer at this time and would like to try outpatient treatment. Her neuro exam is normal. Chest x-ray shows possible left upper lobe pneumonia. Will cover patient for upper lobe pneumonia and given prescription for azithromycin and Augmentin. Will also send in a prescription for meclizine for dizziness and albuterol inhaler as needed for cough, shortness of breath, or wheeze. Recommend patient go the ER for any of her symptoms worsen. Supportive measures were discussed with the patient and they voiced understanding discharge i nstructions and agrees to treatment plan. Return precautions reviewed Differential Diagnosis Differential diagnosis: Likely upper respiratory infection, otitis media, sinusitis, viral infection, bronchitis, influenza, pharyngitis and other (COVID) Imaging Data Radiologist's impression: ITS Impressions Chest X-Ray 04/22/25 09:45 Impression: Small left upper lobe pneumonia. Follow-up recommended to assess complete resolution ECG Data EKG #1: Attestation: I personally reviewed and interpreted this ECG as follows: ECG completion date: 04/22/25 ECG completion time: :19 Prior ECG tracings: available for review Interpretation: EKG shows normal sinus rhythm with heart rate of 74 beats per minute. Intervals 187 milliseconds, QRS duration 78 milliseconds, QT-QTC is 372-399 milliseconds, P-R-T axis is 76 52 54 Discharge Plan Discharge Clinical Impression: Left upper lobe pneumonia, Lung cancer, Dizziness, Chest congestion Patient Disposition: Home Condition: Stable Instructions: Antibiotic Form, Lung Cancer (DC), Dizziness (ED), Pneumonia (ED) Additional Instructions: Offered to send you to the ER for further evaluation and you declined at this time. EKG is reassuring in the clinic today Chest x-ray shows questionable left upper lobe pneumonia however this may be due to your lung cancer-atelectasis versus lymphatic changes Take prescription medications only as prescribed-Augmentin, azithromycin, albuterol inhaler, and meclizine Increase fluids and stay well hydrated May take Tylenol or motrin as directed on bottle for pain/fever May use Flonase 1 spray in each nare daily May take OTC antihistamines such as Zyrtec or Claritin daily as directed on bottle May apply Vicks vapor rub to chest to open sinuses Sinus rinses for congestion Cepacol spray, cough drops, throat lozenges, warm tea with honey/lemon, gargle salt water to soothe throat BRAT diet for diarrhea Clear liquids x 24 hours then advance as tolerated for nausea/vomiting Go to the ED if you develop a worsening in your condition- high fever not controlled by Tylenol or Motrin, dehydration, weakness, lethargy, confusion, shortness of breath, or chest pain. Follow up with your PCP in 3-5 days if symptoms persist. Patient Language: Sudanese Prescriptions: New albuterol sulfate 90 mcg/actuation HFA aerosol inhaler 2 puff inhalation Q4-6H PRN (Reason: shortness of breath or wheezing) 30 Days Qty: 8.5 0RF amoxicillin-pot clavulanate 875-125 mg tablet 1 tablet PO Q12H 7 Days Qty: 14 0RF meclizine 12.5 mg tablet 12.5 mg PO TID PRN (Reason: dizziness) 7 Days Qty: 21 0RF azithromycin 250 mg tablet See Rx Instructions .ROUTE .COMPLEX Qty: 6 0RF Rx Instructions: For 250 mg dose pack: take 500 mg today (day 1), then 250 mg for 4 days (days 2-5) No Action Rituxan 10 mg/mL concentrate 100 mg IV .[id number] aspirin 81 mg Tablet,Delayed Release (Dr/Ec) 81 mg PO QAM Qty: 30 0RF atorvastatin 40 mg Tablet 40 mg PO DAILY Qty: 30 0RF clopidogrel 75 mg Tablet 75 mg PO QAM Qty: 30 0RF Follow-up/Referrals: Pretty,Benito Turner MD [Primary Care Provider, Unknown] Time of Disposition: 10:05 Quality NIHSS Nursing Documentation ED NIHSS nursing documentation: reviewed/agree
--- NOTE | 2025-04-22 09:13 | ECG_ITS ---
Test Date: 2025-04-22 09:19:12 Measurements Intervals Roberts Rate: 74 P: 76 AR: 187 QRS: 52 QRSD: 78 T: 54 QT: 372 QTc: 414 Interpretive Statements SINUS RHYTHM NORMAL ELECTROCARDIOGRAM Compared to ECG 04/05/2025 13:39:43 NO SIGNIFICANT CHANGE Electronically Signed On 04-22-2025 11:24:18 HEREDITARY [employer] PROGRAM COORDINATOR by Vasyl Lewis M.D.
[2025-04-22 10:15] VITALS: BP 160/90
== END 2025-04-22 10:17 | disposition home or self-care (01) ==
PROVIDERS: Emergency Provider Nurse Practitioner Family; PCP Internal Medicine
DX: J18.1 Lobar pneumonia, unspecified organism (principal); C34.12 Malignant neoplasm of upper lobe, left bronchus or lung; C81.90 Hodgkin lymphoma, unspecified, unspecified site; R42 Dizziness and giddiness; R09.89 Other specified symptoms and signs involving the circulatory and respiratory systems; E78.5 Hyperlipidemia, unspecified; Z85.828 Personal history of other malignant neoplasm of skin; Z79.82 Long term (current) use of aspirin
CPT/HCPCS: 71046; 93005; 99213; G0463